=== PATIENT | female | born 1945 | race Caucasian/White ===

== ENCOUNTER → 2023-12-26 16:16 | Outpatient (REF) | payer OTHER, SELFPAY | LOC: HWRAD 16:16 | PROVIDERS: ATTENDING PHYSICIAN Nurse Practitioner Adult Health | DX: R06.09 Other forms of dyspnea (principal); R53.83 Other fatigue; R63.4 Abnormal weight loss; M54.2 Cervicalgia; M54.9 Dorsalgia, unspecified | CPT/HCPCS: 71046; 72050; 72072 ==

== ENCOUNTER → 2024-01-15 12:03 | Outpatient (REF) | payer OTHER, SELFPAY | LOC: HWRAD 12:03 | PROVIDERS: ATTENDING PHYSICIAN Internal Medicine | DX: Z91.81 History of falling (principal); S70.02XS Contusion of left hip, sequela | CPT/HCPCS: 73502 ==

== ENCOUNTER → 2024-01-22 09:14 | Outpatient (REF) | payer OTHER, SELFPAY | LOC: RSP 09:14 | PROVIDERS: ATTENDING PHYSICIAN Nurse Practitioner Adult Health | DX: J44.9 Chronic obstructive pulmonary disease, unspecified (principal); R06.09 Other forms of dyspnea | CPT/HCPCS: 94727; 94729; 88738; 94010 ==

== ENCOUNTER → 2024-01-31 11:33 | Outpatient (REF) | payer OTHER, SELFPAY | LOC: HWRAD 11:33 | PROVIDERS: ATTENDING PHYSICIAN Orthopaedic Surgery; FAMILY PHYSICIAN Internal Medicine | DX: R10.2 Pelvic and perineal pain (principal); M89.9 Disorder of bone, unspecified | CPT/HCPCS: 72192 ==

== ENCOUNTER → 2024-08-14 12:15 | Outpatient (REF) | payer OTHER, SELFPAY | LOC: HWWDC 12:15 | PROVIDERS: ATTENDING PHYSICIAN Nurse Practitioner Adult Health | DX: Z12.31 Encounter for screening mammogram for malignant neoplasm of breast (principal) | CPT/HCPCS: 77063; 77067 ==

== ENCOUNTER 2024-09-12 20:21 | Inpatient (IN) | payer OTHER, SELFPAY ==
[2024-09-12] VITALS (10 sets, daily range): BP systolic 123–185; BP diastolic 64–97; BMI 17.8
[2024-09-12 14:00] LABS: Glucose - Point of Care 155 mg/dl (70-99)
--- NOTE | 2024-09-12 14:03 | ED.GENMED ---
History of Present Illness
General
Chief Complaint: Blood Sugar Problem
Source: patient and ambulance crew
Exam Limitations: dementia
Time Seen by Provider: 09/12/24 14:01
Nursing documentation reviewed up to this point in time: agreed with
History of Present Illness
History of Present Illness:
79-year-old female presents emergency department after EMS called to the house by her due to unresponsiveness. EMS found her blood sugar to be 36. She woke up after receiving D50 from EMS.
Past History
Past History
ED Past Medical History: Hypercholesterolemia, Psychiatric (generalized anxiety disorder) and Other (osteoporosis, COVID-19 in May 2021, mild cognitive impairment 2020)
ED Past Surgical History: Other (cataract extraction 2003)
Social History
Tobacco: Non-smoker
Alcohol: None
Drug: None
Personal:
Living: with family
Family History
Family History: Other (reviewed and noncontributory)
Review of Systems
Review of Systems
Allergies reviewed?: Yes
Unable to obtain full review of systems at this time due to: dementia
All Other Systems: Not applicable
Phy Exam
Physical Exam
Physical Exam:
Physical Exam
General: no apparent distress, not acutely ill
Neck: supple. no meningeal signs. normal posterior pharynx
Heart: s1/s2 regular rate and rhythm, no murmur. equal radial
pulses.
HEENT: Pupils equal round reactive to light, EOMI
Lungs: no acute respiratory distress. clear bilaterally
Abdomen: normal bowel sounds. not tender. no CVAT
Neuro: alert but not oriented. no focal neurological deficits cranial nerves II through XII intact
Skin: no rash
Psychiatric: Confused, agitated
Extremities: no edema. no calf tenderness. negative homans. good distal pulses
Course
Orders/Labs/Results
Orders:
Orders
09/12/24
Electrocardiogram (*1) Stat
Comment: ALREADY DONE
09/12/24 14:01
CT Head W/o Iv Contrast Urgent
Comment:
Reason For Exam: altered mental status, unclear if fall
EKG- Treatment ONCE
09/12/24 14:02
Electrocardiogram (*1) Urgent
Reason for Study: Other
Other Reason for Exam: physician order
IV Insert/Care/Rem.- Treatment PRN
09/12/24 14:06
Complete Blood Count/With Diff Urgent
Comprehensive Metabolic Panel Urgent
09/12/24 19:51
Urinalysis Reflex To Culture Urgent
Accucheck [Bedside Glucose Monitoring] As Directed
Frequency: q4h
Straight Cath As Directed
Frequency: One time now
09/12/24 19:52
Dextrose 50%-Water [Dextrose 50% Syringe] 12.5 grams IV [id number] PRN
Glucagon [GlucaGen] 1 mg IM PRN PRN
09/13/24 06:00
Glycohemoglobin (HgbA1c) IN AM
Abnormal Lab Results
09/12/24 09/12/24
13:59 14:06
RBC 4.04 L 10^6/uL
(4.20-5.40)
Hct 36.0 L %
(37.0-47.0)
MPV 10.7 H fL
(7.4-10.4)
Absolute Lymphs (auto) 0.6 L 10^3/uL
(1.2-3.4)
Neutrophils % 83.9 H %
(42.2-75.2)
Lymphocytes % 7.8 L %
(20.5-51.1)
BUN 18 H mg/dl
(7-17)
Creatinine 0.5 L mg/dL
(0.6-1.0)
Glucose 180 H mg/dl
(70-99)
AST 46 H U/L
(14-36)
Total Protein 6.2 L g/dl
(6.3-8.2)
POC Glucose 155 H mg/dl
(70-99)
09/12/24 14:06
09/12/24 14:06
Vital Signs
Initial and Last Documented VS:
Initial Vital Signs
Temp Pulse Resp BP Pulse Ox
98.5 F 77 14 160/79 98
09/12/24 13:59 09/12/24 13:59 09/12/24 13:59 09/12/24 13:59 09/12/24 13:59
Last Documented Vital Signs
Temp Pulse Resp BP Pulse Ox
98.5 F 72 14 181/95 98
09/12/24 13:59 09/12/24 19:00 09/12/24 19:00 09/12/24 19:00 09/12/24 13:59
MDM/Problems Addressed
Differential Diagnosis Includes:
Accidental diabetic medication overdose, sepsis
MDM/Problems Addressed:
79-year-old female with hypoglycemia, persisting in the ED even after eating. Unclear etiology. Patient does not take hypoglycemic medication. Concerned that she could have taken her 's medication. Will admit for further evaluation.
Concerned that patient's cannot care for her at home.
Chronic conditions affecting care: Neurological disorder
Acute Exacerbation and/or Progression of Chronic Illness: Neurological disorder
*Radiology
Radiology exam reviewed: radiology read reviewed (CT head no acute findings)
*Pulse Oximetry
Patient hypoxic: no
*EKG
Interpreted by ED Provider?: Yes
EKG Intrepretation Date: 09/12/24
EKG Intrepretation Time: 15:08
Interpretation: normal
Comparison EKG: no changes
Heart Rate: 67
Rate: normal
Rhythm: sinus
[place]: normal axis
Interval: normal interval
QRS Pattern: normal QRS
Ischemia: no ischemia
*Product Design Manager Interpretation
Rate: normal
Interpretation: normal
Heart Rate: 66
Rhythm: sinus
*Critical Care Note
Total Time (30-74mins, 75-104mins- exclusive of procedures): Not Applicable
Patient Management
Social determinants of health affecting care: Living situation and Poor social support
Discussion with other providers: Hospitalist
Escalation/DeEscalation of care consider admission/obs:
admit indicated
ED Attending Note
-
Portions of this chart may have been created with voice recognition software.� Occasional wrong word or��sound alike� substitutions may have occurred due to the inherent limitations of voice recognition software.
Discharge Plan
Departure
Patient Disposition: Admit
Date of Disposition: 09/12/24
Time of Disposition: 17:52
Admit to: Telemetry
Presentation/result/management discussed w/ accepting MD/DO: Hospitalist
Patient with high blood pressure during this ER visit?: Yes
Condition: Fair
Discharge Problem:
Hypoglycemia
Prescriptions:
No Action
atorvastatin 10 MG tablet
10 mg PO QPM
coenzyme Q10 [Co Q-10] 200 MG capsule
200 mg PO QPM
calcium carbonate-vitamin D3 [Calcium 600 + D(3)] 1 EACH tablet
1 ea PO DAILY
alprazolam 0.25 mg Tablet
0.25 mg PO BID
Patient Comments:
09/12/24: Family states this is taken routinely, but last PDMP fill was on 10/11/23 for 60 tabs over 30 days.
ascorbic acid (vitamin C) [Vitamin C] 250 mg Tablet
250 mg PO DAILY
ibuprofen [Advil] 200 mg Tablet
200 mg PO Q6HPRN PRN (Reason: mild pain)
sertraline 50 mg Tablet
50 mg PO DAILY
memantine 10 mg Tablet
10 mg PO BID
hydrochlorothiazide 12.5 mg Tablet
12.5 mg PO DAILY
rivastigmine 4.6 mg/24 hour Patch 24 Hour
1 patch TRANSDERMAL DAILY
Referrals:
Javier Frederick CRNP [Family Provider] -
Interventions
Interventions:
*Risk Screen - Suicide Last Done: 09/12/24 13:59
*General Assessment Last Done: 09/12/24 13:59
*Neglect/Abuse Screening Last Done: 09/12/24 17:30
*ED- Fall Risk Assessment Last Done: 09/12/24 14:20
*ED COVID-19 Vaccine History Last Done: 09/12/24 14:20
ED- Neurological Assessment Last Done: 09/12/24 14:23
Discharge Date and Time
Print Language: FINNISH
[2024-09-12 14:16] LABS: % Basophils 0.1 % (0-2); % Immature Granulocytes 0.3 % (0-0.5); % Lymphocytes 7.8 % (20.5-51.1); % Monocytes 7.9 % (1.7-9.3); % Neutrophils 83.9 % (42.2-75.2); Absolute Lymphocytes 0.6 10^3/uL (1.2-3.4); Absolute Monocytes 0.6 10^3/uL (0.1-0.6); Absolute Neutrophils 6.1 10^3/uL (1.4-6.5); Hemoglobin 12.2 g/dL (12.0-16.0); Mean Corp Hgb Conc. 33.9 g/dL (33.0-37.0); Mean Corpuscular Hgb 30.2 pg (27.0-31.0); Mean Corpuscular Volume 89.1 fL (81.0-99.0); Mean Platelet Volume 10.7 fL (7.4-10.4); Nucleated Red Blood Cells % 0 %; Platelet Count 180 10^3/uL (130-400); Red Blood Cell Count 4.04 10^6/uL (4.20-5.40); Red Cell Dist. Width 13.5 % (11.5-14.5); White Blood Cell Count 7.2 10^3/uL (4.8-10.8)
[2024-09-12 14:38] LABS: ALT (SGPT) 35 U/L (0-35); AST (SGOT) 46 U/L (14-36); Albumin 3.6 g/dl (3.5-5.0); Alkaline Phosphatase 72 U/L (38-126); Blood Urea Nitrogen 18 mg/dl (7-17); Calcium 8.9 mg/dl (8.4-10.2); Carbon Dioxide 28 mmol/L (22-30); Chloride 106 mmol/L (98-107); Estimated Creatinine Clearance 57 ml/min; Glucose 180 mg/dl (70-99); Potassium 3.5 mmol/L (3.5-5.1); Sodium 141 mmol/L (135-145); Total Bilirubin 0.4 mg/dl (0.2-1.3); Total Protein 6.2 g/dl (6.3-8.2); eGFR > 60.00
[2024-09-12 15:05] LABS: Glucose - Point of Care 77 mg/dl (70-99)
[2024-09-12 16:55] LABS: Glucose - Point of Care 78 mg/dl (70-99)
--- NOTE | 2024-09-12 18:06 | EDRN ---
Pt's daughter, Kenyatta, would like to talk to case management about discharge planning and possible home care/retirement. Kenyatta's phone #[phone].
--- NOTE | 2024-09-12 19:37 | HPS.HSE ---
Addendum entered and electronically signed by Jaquelin Moreno DO 09/13/24 01:26:
The patient is seen and examined. I discussed the patient at length with Bere, nurse practitioner, and agree with her history and physical and assessment and plan of care as per below. The patient is an 79-year-old woman with past medical history
significant for moderate advanced dementia, orthostatic hypotension, chronic ambulatory dysfunction, generalized anxiety disorder, hyperlipidemia, who presents to the emergency department after falling backwards yesterday. 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 There is a chance he could the patient could have taken his metformin however he does not
remember giving her this. She does not have a history of diabetes. She presents with blood sugars in the 30s. She does have decreased oral intake. No nausea no vomiting no diarrhea no abdominal complaints.
Vital signs reviewed and the patient is afebrile and blood pressure 181/95 otherwise hemodynamically stable
Physical exam the patient is cachectic and chronically ill-appearing
cardiovascular regular rate rhythm no murmurs or gallops
lungs are clear to auscultation bilaterally without wheezes rales or rhonchi abdomen soft nontender nondistended
normoactive bowel sounds
The patient is an 79-year-old woman with severe dementia who presents with intractable hypoglycemia of unknown etiology at this time.
#We have initiated the patient on a D5 normal saline drip due to recurrent hypoglycemia while the patient is in the emergency department
See assessment and plan of care as per below
Original Note:
Family Physician
-
Family Physician: Javier Frederick
Chief Complaint
-
Hypoglycemia
History of Present Illness
79-year-old female by EMS due to being found unresponsive at home by her . She was found to have a blood sugar of 36 by EMS and was given D50. Her states she has a history of dementia moderate to advanced he has to help her perform
all ADLs. Over the past month she started rambling. Yesterday she was walking down the steps got to the landing when he saw her legs start to wobble she fell backwards onto the wall landing on her butt she did not hit her head or have any loss of
consciousness. He reports he did not notice any harding to her back or legs she was able to stand up and walk with his assistance. He denies any history of diabetes however he himself takes metformin for diabetes he reports it could be possible she
might have gotten a hold of his metformin since they are out however she is never tried to take medications before on her own. He reports she has been receiving physical therapy and Occupational Therapy at home over the last 3 weeks when he asked
the primary care physician for grab bar devices and home modifications as he is noticing more issues with balance. He denies any recent complaints of headache, fever, chills, vomiting, cough, shortness of breath, abdominal pain, nausea, diarrhea,
rash. He reports medical history of HLD, moderate to advanced dementia�initially diagnosed 2020 with mild cognitive impairment, ambulatory dysfunction, generalized anxiety disorder, osteoporosis, COVID-29 May 2021, orthostatic hypotension Dx
2021
Medical History
Past Medical History
Past Medical History: Reports Other
Additional Past Medical History:
HLD
moderate to advanced dementia�initially diagnosed 2020 with mild cognitive impairment
ambulatory dysfunction
generalized anxiety disorder
osteoporosis
COVID-29 May 2021
Orthostatic hypotension Dx 2021
Past Surgical History: Reports None
Social History
Tobacco: Non-smoker
Alcohol: None
Drug: None
Personal:
Living: With Family ( Yared)
Employment: Retired
Family History
Family History: Other (Mother age 97 unsure per Yared at bedside)
Allergies / Home Medications
Allergies reflects when Allergies were last updated in [facility].
Home Medications with original date entered in [facility]
Allergy/Medication List:
Allergies
Allergy/AdvReac Type Severity Reaction Status Date / Time
No Known Allergies Allergy Verified 12/14/16 18:13
Home Medications
atorvastatin 10 mg tablet 10 mg PO QPM High cholesterol 12/14/16
calcium 600 mg (as carbonate)-vitamin D3 10 mcg (400 unit) tablet (Calcium 600 + D(3)) 1 ea PO DAILY Supplement 12/14/16
coenzyme Q10 200 mg capsule (Co Q-10) 200 mg PO QPM Supplement 12/14/16
alprazolam 0.25 mg tablet 0.25 mg PO BID 09/12/24
ascorbic acid (vitamin C) 250 mg tablet (Vitamin C) 250 mg PO DAILY 09/12/24
hydrochlorothiazide 12.5 mg tablet 12.5 mg PO DAILY 09/12/24
ibuprofen 200 mg tablet (Advil) 200 mg PO Q6HPRN PRN mild pain 09/12/24
memantine 10 mg tablet 10 mg PO BID 09/12/24
rivastigmine 4.6 mg/24 hour transdermal patch 1 patch transdermal DAILY 09/12/24
sertraline 50 mg tablet 50 mg PO DAILY 09/12/24
Review of Systems
-
History Source: Family ( Yared at bedside)
A 12 point ROS was completed and negative except as noted: Yes
Constitutional: Denies Fever, Fatigue or Chills
EENT: Denies Runny Nose
Respiratory: Denies Cough or Trouble Breathing
Cardiac: Denies Chest Pain, Diaphoresis or Syncope
Abdomen/GI: Denies Abdominal Pain, Nausea, Vomiting or Diarrhea
: Denies Flank Pain
Musculoskeletal: Denies Joint Pain or Edema
Skin: Denies Itching or Rash
Neurological: Denies Dizzy or Headache
Psych: Reports Calm
Physical Exam
Vital Signs
Vital Signs
Temp Pulse Resp BP Pulse Ox
98.5 F 72 14 181/95 98
09/12/24 13:59 09/12/24 19:00 09/12/24 19:00 09/12/24 19:00 09/12/24 13:59
Physical Exam
General: Comfortable, Conversant and Other (Patient oriented to first and last name is fidgeting trying to pull off pulse oximetry tape rambles with word salad history of moderate to advanced dementia)
HEENT: NormoCephalic, Anicteric, Moist mucous membranes, PERRLA, [place] Conjunctivae and No Ptosis
Respiratory: Clear; No Wheezes, Rales or Rhonchi
Cardiac: S1/S2 and Regular Rhythm; No Murmur, Rub, Gallop or Peripheral Edema
Breast: Deferred by me
GI: Soft, Non Tender, Non Distended and Normal Bowel Sounds
Rectal: Deferred by Provider
Genito-urinary: Deferred by me
Musculoskeletal: No Clubbing, No Cyanosis and No Edema
Skin: Warm and Dry; No Rash or Jaundice
Neuro: Awake, Alert (Patient oriented to first and last name is fidgeting trying to pull off pulse oximetry tape rambles with word salad history of moderate to advanced dementia) and No Sensory Deficits; No Slurred Speech, Facial Droop, Tremors or
Sedated
Psych: Calm
Laboratory Results
-
09/12/24 14:06
09/12/24 14:06
Laboratory Results
Total Bilirubin 0.4 mg/dl (0.2-1.3) 09/12/24 14:06
AST 46 U/L (14-36) H 09/12/24 14:06
ALT 35 U/L (0-35) 09/12/24 14:06
Alkaline Phosphatase 72 U/L (38-126) 09/12/24 14:06
Data Reviewed
-
CT Scan: Report Reviewed by me
Lab Data: Labs Reviewed by me
Impression/Plan
-
Impression/plan:
Admit to MedSurg
#Acute hypoglycemia unclear etiology
Blood sugar per EMS 36 was given D50 current Accu-Chek 78 @ 1654
-Given history of dementia possibility had access to 's metformin
-Accu-Cheks every 4 hours
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
- Per she eats multiple times a day large meals and sleeps through the night
-Check TSH with free T4 reflex
Update no 2328 blood sugar dropping to 46 was given juice then up to 90-will start D5 NSS 100 cc an hour x 1 L
- Accu-Cheks Q 2 x 4 then every [address] head: No acute intracranial abnormality. Stable mild subcortical, deep, and periventricular white matter attenuation compatible
with chronic small vessel ischemic disease
# Moderate to advanced dementia�initially diagnosed 2020 with mild cognitive impairment
-Continue memantine 10 mg twice daily, rivastigmine 1 patch transdermal daily
#Hx Orthostatic hypotension Dx 2021
-Check orthostatic vitals
-Hold HCTZ 12.5 mg daily
#Chronic ambulatory dysfunction
- PT/OT consult
- [facility] has been following at home for the past 3 weeks
#Generalized anxiety disorder
- Continue Zoloft 50 mg daily
# HLD
- Continue atorvastatin 10 mg every afternoon
Other past medical history:
osteoporosis
COVID-29 May 2021
DNR her Yared
[2024-09-12 21:19] LABS: Urine Albumin 1+ (Neg - Trace); Urine Bilirubin Negative (Negative); Urine Character Clear (Clear); Urine Color Yellow; Urine Glucose Negative (Negative); Urine Ketone Negative (Negative); Urine Leukocyte Negative (Negative); Urine Nitrite Negative (Negative); Urine Occult Blood 3+ (Negative); Urine Urobilinogen Negative (Neg - 1+)
[2024-09-12 21:25] LABS: Glucose - Point of Care 46 mg/dl (70-99)
[2024-09-12 21:29] LABS: TSH Reflex To Free T4 0.55 uIU/ml (0.47-4.68)
[2024-09-12] MEDS: DEXTROSE 50% SYRINGE 12.5 GRAMS IV (21:29)
[2024-09-12 21:34] LABS: Urine Red Blood Cell 16-20 /HPF (0-2); Urine Squamous Cell 0-2 /LPF (Few); Urine White Cell 0-2 /HPF (0-5)
[2024-09-12 21:46] LABS: Glucose - Point of Care 130 mg/dl (70-99)
[2024-09-12 23:02] LABS: Glucose - Point of Care 90 mg/dl (70-99)
[2024-09-12] MEDS: D5/0.9% SODIUM CHLORIDE 1000 IV (23:36)
[2024-09-13 00:11] VITALS: BP 146/70; BMI 16.3
--- NOTE | 2024-09-13 00:22 | PTCARENOTE ---
Pt arrived to floor from ED via stretcher and was transferred over to the bed. Pt aox1 (Self). Drowsy, but easily aroused by voice. Pt placed on a bed alarm in a room close to nurses station. Will review chart and continue to monitor.
[2024-09-13 01:05] LABS: Glucose - Point of Care 95 mg/dl (70-99)
[2024-09-13 03:23] LABS: Glucose - Point of Care 99 mg/dl (70-99)
[2024-09-13 06:00] VITALS: BMI 16.5
[2024-09-13 06:25] LABS: Glucose - Point of Care 101 mg/dl (70-99)
[2024-09-13 08:00] VITALS: BP 155/73
[2024-09-13] MEDS: OSCAL 500 + D 500 MG PO (08:27)
[2024-09-13] MEDS: NAMENDA 10 MG PO ×2 (08:27→21:08)
[2024-09-13] MEDS: ZOLOFT 50 MG PO (08:27)
[2024-09-13] MEDS: EXELON PATCH 4.6 MG TRANSDERM (08:28)
[2024-09-13 08:29] LABS: % Basophils 0.3 % (0-2); % Eosinophils 1.5 % (0-6); % Immature Granulocytes 0.1 % (0-0.5); % Lymphocytes 28.3 % (20.5-51.1); % Monocytes 9.4 % (1.7-9.3); % Neutrophils 60.4 % (42.2-75.2); Absolute Eosinophils 0.1 10^3/uL (0-0.7); Absolute Lymphocytes 2.1 10^3/uL (1.2-3.4); Absolute Monocytes 0.7 10^3/uL (0.1-0.6); Absolute Neutrophils 4.4 10^3/uL (1.4-6.5); Hematocrit 36.5 % (37.0-47.0); Mean Corp Hgb Conc. 32.9 g/dL (33.0-37.0); Mean Corpuscular Hgb 29.9 pg (27.0-31.0); Nucleated Red Blood Cells % 0 %; Platelet Count 167 10^3/uL (130-400); Red Blood Cell Count 4.01 10^6/uL (4.20-5.40); Red Cell Dist. Width 13.5 % (11.5-14.5); White Blood Cell Count 7.3 10^3/uL (4.8-10.8)
[2024-09-13] MEDS: NSS 1000 IV (08:37)
[2024-09-13 08:53] LABS: ALT (SGPT) 36 U/L (0-35); AST (SGOT) 61 U/L (14-36); Albumin 3.5 g/dl (3.5-5.0); Alkaline Phosphatase 76 U/L (38-126); Blood Urea Nitrogen 17 mg/dl (7-17); Calcium 9.1 mg/dl (8.4-10.2); Carbon Dioxide 27 mmol/L (22-30); Chloride 111 mmol/L (98-107); Estimated Creatinine Clearance 55 ml/min; Glucose 109 mg/dl (70-99); Potassium 3.8 mmol/L (3.5-5.1); Sodium 143 mmol/L (135-145); Total Bilirubin 0.6 mg/dl (0.2-1.3); Total Protein 5.9 g/dl (6.3-8.2); eGFR > 60.00
[2024-09-13 09:29] LABS: Glycohemoglobin (HgbA1c) 5.3 % (4.0-5.6)
--- NOTE | 2024-09-13 10:32 | W.PN.HOSP.TC ---
Addendum entered and electronically signed by Damion Linton DO 09/13/24 12:00:
PT notes patient is heavy assist of 2 just to pivot to commode or chair, increased LE tone, ataxia.
Consult neurology.
Original Note:
Today's Communication/Plan
-
Stop IV fluids
PT/OT
Monitor glucoses
Cortisol level
Assessment / Plan
Assessment / Plan
Gen-awake, alert, confused, NAD
HEENT-NC, AT, anicteric, clear oral mm
Neck-supple
CV-reg, no M, +S1/S2
Lungs-clear B/L
Abd-soft, NT, ND
Ext-no edema
Musculoskeletal-no cyanosis, clubbing
Skin-warm and dry
Neuro-grossly non-focal
Psych-calm, cooperative
Hypoglycemia -unclear etiology. believes she may have accidentally taken his metformin. states that her appetite at home is great, she does not skip any meals.
Check a.m. cortisol level. Hypoglycemia resolved. Discontinue further IV fluids.
Diet resume.
Ambulatory dysfunction -nursing notes that she is weak. states that at home she ambulates without any assistive devices. Await PT/OT input.
Dementia -unknown type. Stable on meds.
Generalized anxiety disorder
Osteoporosis
Hyperlipidemia -atorvastatin.
DNR
PT/OT
Updated at the bedside.
Anticipated Discharge: Within 24 hours
Subjective/Interval History
-
Date of Service: September 13, 2024
Patient seen and examined. Confused, no complaints. at the bedside.
Objective Data
-
Labs:
Laboratory Results
09/13/24
07:57
WBC 7.3
Hgb 12.0
Hct 36.5 L
Plt Count 167
Sodium 143
Potassium 3.8
Chloride 111 H
Carbon Dioxide 27
BUN 17
Creatinine 0.6
Glucose 109 H
Calcium 9.1
Total Bilirubin 0.6
AST 61 H
ALT 36 H
Alkaline Phosphatase 76
Vital Signs:
Vital Signs
Temp Pulse Resp BP Pulse Ox
97.3 F 77 16 155/73 97
09/13/24 08:00 09/13/24 08:00 09/13/24 08:00 09/13/24 08:00 09/13/24 08:00
Review of Systems
-
Unable to obtain full review of systems at this time due to: Dementia
--- NOTE | 2024-09-13 10:33 | CM ---
Addendum entered by Neha Medel 09/13/24 16:07:
Spoke with daughter Kenyatta who requests a SW be added to a home care referral if plan is to dc home with services to assist spouse with resources. Daughter lives in [place].
Original Note:
CM called daughter Kenyatta as ED noted daughter requested-met with pt and spouse at bedside and per spouse OK to call and speak with kenyatta.
Called Kenyatta at [phone] and she asked to call CM back later since she is at work and CM provided callback #.
--- NOTE | 2024-09-13 10:46 | CM ---
Met with pt and spouse at bedside.
Pt resides with spouse in a split level home with 0 [address]. 6 steps to each level, pt recently moved from third (uppermost) level to 2nd (middle) level where there is a bedroom/full bathroom present.
Per spouse, pt is ind with ambulation using no AD and spouse assists with bathing/dressing.
Pt is currently open with [facility] for RN/PT/OT. Has no SNF history.
PCP is Javier Frederick and pharmacy is [facility].
PT eval pending. Callback from daughter pending. CM following closely.
[2024-09-13 11:11] LABS: Glucose - Point of Care 91 mg/dl (70-99)
[2024-09-13 11:54] VITALS: BP 152/71; PULSE 66; O2SAT 98
[2024-09-13 11:56] VITALS: BP 152/71; PULSE 68; O2SAT 98
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
[2024-09-13 12:22] LABS: Cortisol, Random 15.5 ug/dl
[2024-09-13 14:48] LABS: Glucose - Point of Care 96 mg/dl (70-99)
[2024-09-13 16:00] VITALS: BP 133/70
[2024-09-13] MEDS: LOVENOX 40 MG SC (17:31)
[2024-09-13] MEDS: LIPITOR 10 MG PO (17:31)
[2024-09-13] MEDS: RISPERDAL M-TAB (ORALLY DISINTEGRATING) 0.5 MG PO (21:08)
[2024-09-13 22:04] LABS: Glucose - Point of Care 100 mg/dl (70-99)
--- NOTE | 2024-09-13 22:06 | PTCARENOTE ---
pt pleasant but confused restless and impulsive. unsteady but strong and made many attempts to ge oob. BA in place, pt in a room near nurses station, madison chair avail if needed. Active toileting because pt is continent. Very anxious and combative
with and quick movements or loud voices, using quiet calm assurance and redirection. Pt bg stable, in the 90's -100's. Ate whole dinner with direction. 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 Advised its ok wait on next BG unitl am, will check again
before change of shift.
[2024-09-14 06:16] LABS: % Basophils 0.3 % (0-2); % Eosinophils 3.1 % (0-6); % Immature Granulocytes 0.3 % (0-0.5); % Lymphocytes 30.7 % (20.5-51.1); % Monocytes 9.4 % (1.7-9.3); % Neutrophils 56.2 % (42.2-75.2); Absolute Eosinophils 0.2 10^3/uL (0-0.7); Absolute Lymphocytes 2.3 10^3/uL (1.2-3.4); Absolute Monocytes 0.7 10^3/uL (0.1-0.6); Absolute Neutrophils 4.2 10^3/uL (1.4-6.5); Hematocrit 35.5 % (37.0-47.0); Hemoglobin 12.1 g/dL (12.0-16.0); Mean Corp Hgb Conc. 34.1 g/dL (33.0-37.0); Mean Corpuscular Hgb 30.5 pg (27.0-31.0); Mean Corpuscular Volume 89.4 fL (81.0-99.0); Mean Platelet Volume 10.8 fL (7.4-10.4); Nucleated Red Blood Cells % 0 %; Platelet Count 160 10^3/uL (130-400); Red Blood Cell Count 3.97 10^6/uL (4.20-5.40); Red Cell Dist. Width 13.2 % (11.5-14.5); White Blood Cell Count 7.5 10^3/uL (4.8-10.8)
[2024-09-14 06:46] LABS: ALT (SGPT) 44 U/L (0-35); AST (SGOT) 58 U/L (14-36); Albumin 3.8 g/dl (3.5-5.0); Alkaline Phosphatase 86 U/L (38-126); Blood Urea Nitrogen 20 mg/dl (7-17); Calcium 9.6 mg/dl (8.4-10.2); Carbon Dioxide 29 mmol/L (22-30); Chloride 106 mmol/L (98-107); Estimated Creatinine Clearance 47 ml/min; Glucose 96 mg/dl (70-99); Potassium 3.6 mmol/L (3.5-5.1); Sodium 143 mmol/L (135-145); Total Bilirubin 0.8 mg/dl (0.2-1.3); Total Protein 6.3 g/dl (6.3-8.2); eGFR > 60.00
[2024-09-14 07:00] VITALS: BP 168/82
--- NOTE | 2024-09-14 07:57 | W.PN.NEURO.1 ---
Today's Communication / Plan
-
.
Subjective/Objective
Subjective Data
Date of Service: September 14, 2024
Neurology Consultation Note.
Ms. Adan reports no complaints. She received 0.5 mg of risperidone at 21:08 for agitation yesterday.
Brain MRI is pending
PMH: Dementia, HTN, DLP,
PSH: Bilateral cataract extraction
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
All:NKDA
ROS: Negative for weight loss, fever
Neurological: Positive for progressive cognitive decline
Psychiatric/Behavioral: Negative for behavioral changes, hallucinations
General: Well developed. In no acute distress.
Cardio: Regular rate and rhythm without murmur. Extremities are without cyanosis or edema.
Neuro:
Mental Status: Alert, oriented to name, person date of . Did not know month, year. Follows simple requests. Poor attention and comprehension.
Cranial Nerves: Pupils are equally round, surgical. EOMs full. Limited smooth pursuit. Blinks to threat bilaterally. No ptosis. No nystagmus. V1-V3 intact to light touch and pinprick bilaterally, symmetric. Face symmetric. Normal hearing AU.
The palate elevated well. SCMs and traps 5/5. Tongue midline. No dysarthria. Moderate hypophonia
Motor: All limbs are antigravity symmetrically
Reflexes: Bilateral grasp
Sensory: Limited exam due to poor attention
Coordination: No tremors myoclonic movements.
Gait: deferred
Assessment and Plan:
I. Symptomatic seizure
II. Dementia, LBD?
III. Hypoglycemia
-Continue Telemetry monitoring
-Fall and delirium precautions
-Brain MRI without pilar
-No indications for AED
-DVT prophylaxis.
I personally reviewed all radiology and labs along with past medical records pertinent to current medical problems. Total time spent in patient care is 35 minutes.
Thank you for allowing us to participate in the care of this patient. We will continue to follow. Please do not hesitate to contact us with any questions or concerns.
Objective Data
Vital Signs
Temp Pulse Resp BP Pulse Ox
36.9 C 69 16 133/70 98
09/13/24 16:00 09/13/24 16:00 09/13/24 16:00 09/13/24 16:00 09/13/24 16:00
Lab Results
09/14/24 05:33
09/14/24 05:33
Sodium 143 mmol/L (135-145) 09/14/24 05:33
Potassium 3.6 mmol/L (3.5-5.1) 09/14/24 05:33
BUN 20 mg/dl (7-17) H 09/14/24 05:33
Glucose 96 mg/dl (70-99) 09/14/24 05:33
Calcium 9.6 mg/dl (8.4-10.2) 09/14/24 05:33
Patient Allergies
No Known Allergies Allergy (Verified 12/14/16 18:13)
Vital Signs and Labs
-
Vital Signs and Labs:
Vital Signs
Temp Pulse Resp BP Pulse Ox
36.9 C 66 17 168/82 100
09/14/24 07:00 09/14/24 07:00 09/14/24 07:00 09/14/24 07:00 09/14/24 07:00
Lab Results
09/14/24 05:33
09/14/24 05:33
Sodium 143 mmol/L (135-145) 09/14/24 05:33
Potassium 3.6 mmol/L (3.5-5.1) 09/14/24 05:33
BUN 20 mg/dl (7-17) H 09/14/24 05:33
Glucose 96 mg/dl (70-99) 09/14/24 05:33
Calcium 9.6 mg/dl (8.4-10.2) 09/14/24 05:33
Medications
-
Medications:
Generic Name Dose Route Start Last Admin
Trade Name Freq PRN Reason Stop Dose Admin
Acetaminophen 650 mg 09/13/24 00:05
Acetaminophen 325 Mg Tablet PO 10/11/24 00:04
Q4HPRN PRN
mild pain/WINTER/temp> 100.4F
Alprazolam 0.25 mg 09/14/24 11:04 09/14/24 11:10
Alprazolam 0.25 Mg Tablet PO 10/12/24 11:03 0.25 mg
Q6HPRN PRN Administration
PRIOR TO MRI/ANXIETY
Atorvastatin Calcium 10 mg 09/13/24 18:00 09/13/24 17:31
Atorvastatin (Lipitor) 10 Mg Tablet PO 10/11/24 17:59 10 mg
QPM RADHA Administration
Calcium/Vitamin D 500 mg 09/13/24 08:00 09/14/24 08:38
Calcium Carbonate 500 Mg/Vitamin D 5 Mcg (200 Units) Tablet PO 10/11/24 07:59 500 mg
DAILY RADHA Administration
Dextrose 12.5 grams 09/12/24 19:52 09/12/24 21:29
Dextrose 50% (0.5 Grams/Ml) 50 Ml Syringe IV 10/10/24 19:51 12.5 grams
[id number] PRN Administration
hypoglycemia
Protocol
Dextrose 12.5 grams 09/13/24 00:05
Dextrose 50% (0.5 Grams/Ml) 50 Ml Syringe IV 10/11/24 00:04
[id number] PRN
hypoglycemia
Protocol
Enoxaparin Sodium 40 mg 09/13/24 18:00 09/13/24 17:31
Enoxaparin Sodium 40 Mg/0.4 Ml Syringe SC 10/11/24 17:59 40 mg
QPM RADHA Administration
Glucagon 1 mg 09/12/24 19:52
Glucagon 1 Mg Vial IM 10/10/24 19:51
PRN PRN
hypoglycemia
Protocol
Glucagon 1 mg 09/13/24 00:05
Glucagon 1 Mg Vial IM 10/11/24 00:04
PRN PRN
hypoglycemia
Protocol
Memantine 10 mg 09/13/24 08:00 09/14/24 08:43
Memantine 10 Mg Tablet PO 10/11/24 07:59 10 mg
BID RADHA Administration
Rivastigmine 4.6 mg 09/13/24 08:00 09/14/24 08:38
Rivastigmine (Exelon) 4.6 Mg Patch TRANSDERM 10/11/24 07:59 4.6 mg
DAILY RADHA Administration
Sertraline HCl 50 mg 09/13/24 08:00 09/14/24 08:38
Sertraline 50 Mg Tablet PO 10/11/24 07:59 50 mg
DAILY RADHA Administration
Sodium Chloride 0 flush 09/12/24 23:00
Sodium Chloride 0.9% (Flush) Syringe IV 10/10/24 22:59
PER PROTOCOL RADHA
Home Medications
-
Home Medications
atorvastatin 10 mg tablet 10 mg PO QPM High cholesterol 12/14/16
calcium 600 mg (as carbonate)-vitamin D3 10 mcg (400 unit) tablet (Calcium 600 + D(3)) 1 ea PO DAILY Supplement 12/14/16
coenzyme Q10 200 mg capsule (Co Q-10) 200 mg PO QPM Supplement 12/14/16
alprazolam 0.25 mg tablet 0.25 mg PO BID Anxiety 09/12/24
ascorbic acid (vitamin C) 250 mg tablet (Vitamin C) 250 mg PO DAILY Supplement 09/12/24
hydrochlorothiazide 12.5 mg tablet 12.5 mg PO DAILY Blood Pressure 09/12/24
ibuprofen 200 mg tablet (Advil) 200 mg PO Q6HPRN PRN mild pain 09/12/24
memantine 10 mg tablet 10 mg PO BID Mental Health/Anxiety 09/12/24
rivastigmine 4.6 mg/24 hour transdermal patch 1 patch transdermal DAILY Mental Health/Anxiety 09/12/24
sertraline 50 mg tablet 50 mg PO DAILY Depression 09/12/24
[2024-09-14] MEDS: ZOLOFT 50 MG PO (08:38)
[2024-09-14] MEDS: EXELON PATCH 4.6 MG TRANSDERM (08:38)
[2024-09-14] MEDS: OSCAL 500 + D 500 MG PO (08:38)
[2024-09-14] MEDS: NAMENDA 10 MG PO ×2 (08:43→23:06)
[2024-09-14] MEDS: ALPRAZOLAM ODT 0.25 MG PO (09:55)
--- NOTE | 2024-09-14 10:28 | W.PN.HOSP.TC ---
Today's Communication/Plan
-
Xanax as needed
Brain MRI
Assessment / Plan
Assessment / Plan
Gen-awake, alert, confused, NAD
HEENT-NC, AT, anicteric, clear oral mm
Neck-supple
CV-reg, no M, +S1/S2
Lungs-clear B/L
Abd-soft, NT, ND
Ext-no edema
Musculoskeletal-no cyanosis, clubbing
Skin-warm and dry
Neuro-grossly non-focal
Psych-calm, cooperative
Hypoglycemia -unclear etiology. believes she may have accidentally taken his metformin. states that her appetite at home is great, she does not skip any meals.
A.m. cortisol 15, doubt adrenal insufficiency.
Hypoglycemia resolved.
Ambulatory dysfunction -nursing notes that she is weak. states that at home she ambulates without any assistive devices.
Neurology consulted for lower extremity weakness. They raised the concern for potential or possible seizure. Brain MRI ordered. Nursing requesting medication for sedation given her inability to sit still or lie still for MRI. Xanax as needed
ordered.
Dementia -unknown type. Stable on meds.
Generalized anxiety disorder
Osteoporosis
Hyperlipidemia -atorvastatin.
DNR
PT/OT
Anticipated Discharge: Within 24 hours
Subjective/Interval History
-
Date of Service: September 14, 2024
Patient seen and examined. Confused, no complaints.
Objective Data
-
Labs:
Laboratory Results
09/14/24
05:33
WBC 7.5
Hgb 12.1
Hct 35.5 L
Plt Count 160
Sodium 143
Potassium 3.6
Chloride 106
Carbon Dioxide 29
BUN 20 H
Creatinine 0.7
Glucose 96
Calcium 9.6
Total Bilirubin 0.8
AST 58 H
ALT 44 H
Alkaline Phosphatase 86
Vital Signs:
Vital Signs
Temp Pulse Resp BP Pulse Ox
98.4 F 66 17 168/82 100
09/14/24 07:00 09/14/24 07:00 09/14/24 07:00 09/14/24 07:00 09/14/24 07:00
I&O
09/13/24 09/14/24 09/15/24
06:59 06:59 06:59
Intake Total 1800 / 1800
Balance 1800 / 1800
Review of Systems
-
Unable to obtain full review of systems at this time due to: Dementia
History Source: Patient
All other systems: Reviewed and negative
[2024-09-14] MEDS: XANAX 0.25 MG PO (11:10)
--- NOTE | 2024-09-14 12:00 | PTCARENOTE ---
Pt restless prior to MRI. made aware of restlessness, new order for Xanax. Xanax administered with + effects. Patient taken to MRI, MRI staff called shortly after stating that patient was unable to remain still for imaging. MRI not done, made
aware, new order for MRI on 09/15. at bedside during shift. Bed alarm in place and call valdez within reach.
--- NOTE | 2024-09-14 14:01 | CM ---
Addendum entered by Ame Guadarrama 09/14/24 16:09:
Daughter and spouse state they would like refs to [facility], [facility], and [facility].
Original Note:
CM following re: d/c planning.
CM discussed with pt and spouse, amenable to SNF.
Therapy recs for SNF.
Spouse will provide a few choices shortly.
Call placed to daughter as well, but she states she will call CM back.
CM continuing to work on disposition to SNF.
[2024-09-14 16:16] VITALS: BP 103/57; BP 124/68; BP 137/59; PULSE 73; PULSE 80; PULSE 85
[2024-09-14 16:17] VITALS: BP 124/68
[2024-09-14] MEDS: LOVENOX 40 MG SC (17:31)
[2024-09-14] MEDS: LIPITOR 10 MG PO (17:32)
[2024-09-14 20:23] LABS: Glucose - Point of Care 92 mg/dl (70-99)
[2024-09-14 22:37] LABS: Glucose - Point of Care 104 mg/dl (70-99)
[2024-09-14 23:41] VITALS: BP 154/81
--- NOTE | 2024-09-15 03:48 | W.PN.UPDATE ---
Update Note
Progress Note Update
Patient found sitting on the floor by her bed. No injuries noted. No evidence of head strike. Returned to bed. Will consider madison chair . Bed alarm on.
[2024-09-15 06:00] VITALS: BMI 16.8
[2024-09-15 07:05] VITALS: BP 124/81
[2024-09-15 08:02] LABS: % Basophils 0.3 % (0-2); % Eosinophils 1.3 % (0-6); % Immature Granulocytes 0.4 % (0-0.5); % Lymphocytes 23.4 % (20.5-51.1); % Monocytes 8.1 % (1.7-9.3); % Neutrophils 66.5 % (42.2-75.2); Absolute Eosinophils 0.1 10^3/uL (0-0.7); Absolute Lymphocytes 1.7 10^3/uL (1.2-3.4); Absolute Monocytes 0.6 10^3/uL (0.1-0.6); Absolute Neutrophils 4.8 10^3/uL (1.4-6.5); Hematocrit 35.1 % (37.0-47.0); Hemoglobin 12.2 g/dL (12.0-16.0); Mean Corp Hgb Conc. 34.8 g/dL (33.0-37.0); Mean Corpuscular Volume 86.5 fL (81.0-99.0); Mean Platelet Volume 11.1 fL (7.4-10.4); Nucleated Red Blood Cells % 0 %; Platelet Count 161 10^3/uL (130-400); Red Blood Cell Count 4.06 10^6/uL (4.20-5.40); White Blood Cell Count 7.2 10^3/uL (4.8-10.8)
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
[2024-09-15] MEDS: EXELON PATCH 4.6 MG TRANSDERM (08:31)
[2024-09-15] MEDS: ZOLOFT 50 MG PO (08:31)
[2024-09-15] MEDS: NAMENDA 10 MG PO ×2 (08:32→21:18)
[2024-09-15] MEDS: XANAX 0.25 MG PO (08:32)
[2024-09-15] MEDS: OSCAL 500 + D 500 MG PO (08:32)
[2024-09-15 09:09] LABS: ALT (SGPT) 47 U/L (0-35); AST (SGOT) 49 U/L (14-36); Albumin 3.6 g/dl (3.5-5.0); Alkaline Phosphatase 80 U/L (38-126); Blood Urea Nitrogen 28 mg/dl (7-17); Calcium 9.6 mg/dl (8.4-10.2); Carbon Dioxide 24 mmol/L (22-30); Chloride 110 mmol/L (98-107); Estimated Creatinine Clearance 55 ml/min; Glucose 103 mg/dl (70-99); Sodium 143 mmol/L (135-145); Total Bilirubin 0.9 mg/dl (0.2-1.3); Total Protein 6.3 g/dl (6.3-8.2); eGFR > 60.00
--- NOTE | 2024-09-15 12:43 | W.PN.HOSP.TC ---
Today's Communication/Plan
-
dc xanax
neuro recs
monitor for po intake
risperdial prn if needed
Assessment / Plan
Assessment / Plan
Gen-awake, alert, confused, NAD
HEENT-NC, AT, anicteric, clear oral mm
Neck-supple
CV-reg, no M, +S1/S2
Lungs-clear B/L
Abd-soft, NT, ND
Ext-no edema
Musculoskeletal-no cyanosis, clubbing
Skin-warm and dry
Neuro-grossly non-focal
Psych-calm, cooperative
Hypoglycemia -unclear etiology. believes she may have accidentally taken his metformin. states that her appetite at home is great, she does not skip any meals.
A.m. cortisol 15, doubt adrenal insufficiency.
Hypoglycemia resolved.
Ambulatory dysfunction -nursing notes that she is weak. states that at home she ambulates without any assistive devices.
Neurology consulted for lower extremity weakness. They raised the concern for potential or possible seizure. Brain MRI ordered. MRI of the brain with no evidence of acute intracranial abnormality. Mild to moderate diffuse atrophy noted. Small
vessel ischemic disease.
Defer EEG to neurology
Dementia with behavioral disturbances. Xanax seems to sedate patient. Will dc it for now. Will start patient on Risperdal prn.
Generalized anxiety disorder
Osteoporosis
Hyperlipidemia -atorvastatin.
DNR
PT/OT-SNF. Will require auth.
Updated patient spouse over the phone in details.
Anticipated Discharge: 24 - 48 hours
Subjective/Interval History
-
Date of Service: September 15, 2024
was agitated overnight-require ativan to be given
Objective Data
-
Labs:
Laboratory Results
09/15/24
07:36
WBC 7.2
Hgb 12.2
Hct 35.1 L
Plt Count 161
Sodium 143
Potassium 4.0
Chloride 110 H
Carbon Dioxide 24
BUN 28 H
Creatinine 0.6
Glucose 103 H
Calcium 9.6
Total Bilirubin 0.9
AST 49 H
ALT 47 H
Alkaline Phosphatase 80
Vital Signs:
Vital Signs
Temp Pulse Resp BP Pulse Ox
98.1 F 72 17 124/81 98
09/15/24 07:05 09/15/24 07:05 09/15/24 07:05 09/15/24 07:05 09/15/24 07:05
I&O
09/14/24 09/15/24 09/16/24
06:59 06:59 06:59
Intake Total 1800 / 1800 720 / 720
Output Total 0 / 0
Balance 1800 / 1800 720 / 720
Data Reviewed
-
Total Time Spent with Patient (in minutes): 55
--- NOTE | 2024-09-15 14:27 | PN.CDI ---
CDI
- -
CDI:
Physician Documentation Request
Admit Date: 09/12/24 20:21
Dear Doctor Curtis,
Please review the following and provide your response in the progress notes.
Clinical Indicators:
Height: 5 ft 6 in
Weight:104 lb 5 oz
BMI:16.8
If possible, please provide an associated diagnosis related to the abnormal BMI, such as:
BMI < or = to 19
Underweight
Cachectic
- Other
Use of terms such as suspected, likely, concern for, or probable (associated with a specific diagnosis that is being evaluated, monitored, or treated as if it exists) are acceptable and can be coded in the inpatient setting, when documented at the
time of discharge.
Thank you,
Pilra Mora RN
CDI Specialist
[facility]
Please use your independent medical judgment in providing your response.
[2024-09-15 14:49] VITALS: BMI 16.8
[2024-09-15 15:10] VITALS: BP 164/76
[2024-09-15 16:49] LABS: Glucose - Point of Care 105 mg/dl (70-99)
[2024-09-15] MEDS: LOVENOX 40 MG SC (17:18)
[2024-09-15] MEDS: LIPITOR 10 MG PO (17:19)
--- NOTE | 2024-09-15 17:26 | CM ---
Pt needed MRI today. Pt was too sleepy for PT OT evals.
Pt will need update evals for SNF placement .
Spoke with Cj [phone] explained pt will need updated PT OT and located SNF.
After located SNF will need auth .
[facility] has no beds.
Check with [facility] and [facility] for bed tomorrow.
PLAN To SNF after indicated and auth obtained
[2024-09-16 06:00] VITALS: BMI 15.8
[2024-09-16 07:51] VITALS: BP 165/70
[2024-09-16 08:19] LABS: Glucose - Point of Care 80 mg/dl (70-99)
[2024-09-16] MEDS: NAMENDA 10 MG PO ×2 (08:46→20:15)
[2024-09-16] MEDS: ZOLOFT 50 MG PO (08:46)
[2024-09-16] MEDS: EXELON PATCH 4.6 MG TRANSDERM (08:46)
[2024-09-16] MEDS: OSCAL 500 + D 500 MG PO (08:46)
--- NOTE | 2024-09-16 09:35 | CM ---
Spoke with dgt Mihaela [phone] at length concerning her mom .
Pt will need to be able to participate in PT OT evals. Yesterday she had a test and was sleepy.
After evals done . Family will indicate which SNF they wanted [facility] or [facility] ( which [place] bed [place])
Pt will need an auth with [facility].
SNF asked what is pts disp after SNF. Dgt will speak with her dad and call back .
PLAN To SNF after located and auth obtained
--- NOTE | 2024-09-16 11:23 | W.PN.HOSP.TC ---
Today's Communication/Plan
-
PT/OT
Await placement
Assessment / Plan
Assessment / Plan
Gen-awake, alert, confused, NAD
HEENT-NC, AT, anicteric, clear oral mm
Neck-supple
CV-reg, no M, +S1/S2
Lungs-clear B/L
Abd-soft, NT, ND
Ext-no edema
Musculoskeletal-no cyanosis, clubbing
Skin-warm and dry
Neuro-grossly non-focal
Psych-calm, cooperative
Hypoglycemia -unclear etiology. believes she may have accidentally taken his metformin. states that her appetite at home is great, she does not skip any meals.
A.m. cortisol 15, doubt adrenal insufficiency.
Hypoglycemia resolved.
Ambulatory dysfunction -nursing notes that she is weak. states that at home she ambulates without any assistive devices.
Neurology consulted for lower extremity weakness. They raised the concern for potential or possible seizure. Brain MRI ordered. MRI of the brain with no evidence of acute intracranial abnormality. Mild to moderate diffuse atrophy noted. Small
vessel ischemic disease.
Defer EEG to neurology
Probably Dementia with behavioral disturbances. Xanax seems to sedate patient. Will dc it for now. Will start patient on Risperdal prn.
Generalized anxiety disorder
Osteoporosis
Hyperlipidemia -atorvastatin.
Underweight
DNR
PT/OT-SNF. Will require auth.
Updated patient spouse over the phone in details on 09/15/24
update daughter at bedside in details.
Anticipated Discharge: Within 24 hours
Subjective/Interval History
-
Date of Service: September 16, 2024
awake
eating breakfast
not agitated
daughter at bedside
Objective Data
-
Vital Signs:
Vital Signs
Temp Pulse Resp BP Pulse Ox
98.2 F 65 20 165/70 97
09/16/24 07:51 09/16/24 07:51 09/16/24 07:51 09/16/24 07:51 09/16/24 07:51
I&O
09/15/24 09/16/24 09/17/24
06:59 06:59 06:59
Intake Total 720 / 720 290 / 290
Output Total 0 / 0
Balance 720 / 720 290 / 290
[2024-09-16 12:02] VITALS: BP 169/79; PULSE 76; O2SAT 98; O2SAT 99
[2024-09-16 12:16] LABS: Glucose - Point of Care 158 mg/dl (70-99)
[2024-09-16 15:29] VITALS: BP 127/49
[2024-09-16] MEDS: LIPITOR 10 MG PO (17:17)
[2024-09-16] MEDS: LOVENOX 40 MG SC (17:17)
[2024-09-16 18:06] LABS: Glucose - Point of Care 198 mg/dl (70-99)
[2024-09-16] MEDS: RISPERDAL 0.25 MG PO (20:05)
[2024-09-16 22:03] LABS: Glucose - Point of Care 158 mg/dl (70-99)
[2024-09-16 23:03] VITALS: BP 139/53
[2024-09-17 07:20] VITALS: BP 162/74
[2024-09-17 07:23] LABS: Glucose - Point of Care 102 mg/dl (70-99)
[2024-09-17] MEDS: EXELON PATCH 4.6 MG TRANSDERM (08:02)
[2024-09-17] MEDS: ZOLOFT 50 MG PO (08:03)
[2024-09-17] MEDS: OSCAL 500 + D 500 MG PO (08:03)
[2024-09-17] MEDS: NAMENDA 10 MG PO ×2 (08:03→21:51)
--- NOTE | 2024-09-17 09:56 | CM ---
Spoke with dgt Mihaela [phone] about dc plan.
PT OT evals done indicates SNF.
Family will indicate which SNF they wanted [facility] or [facility] ( which if bed available at dc)
Pt had behaviors last night . aware
Pt will need an auth with [facility].
PLAN To SNF after located and auth obtained
--- NOTE | 2024-09-17 11:09 | W.PN.HOSP.TC ---
Today's Communication/Plan
-
await placement
risperdial if needed
Assessment / Plan
Assessment / Plan
Gen-awake, alert, confused, NAD
HEENT-NC, AT, anicteric, clear oral mm
Neck-supple
CV-reg, no M, +S1/S2
Lungs-clear B/L
Abd-soft, NT, ND
Ext-no edema
Musculoskeletal-no cyanosis, clubbing
Skin-warm and dry
Neuro-grossly non-focal
Psych-calm, cooperative
Hypoglycemia -unclear etiology. believes she may have accidentally taken his metformin. states that her appetite at home is great, she does not skip any meals.
A.m. cortisol 15, doubt adrenal insufficiency.
Hypoglycemia resolved.
Ambulatory dysfunction -nursing notes that she is weak. states that at home she ambulates without any assistive devices.
Neurology consulted for lower extremity weakness. They raised the concern for potential or possible seizure. Brain MRI ordered. MRI of the brain with no evidence of acute intracranial abnormality. Mild to moderate diffuse atrophy noted. Small
vessel ischemic disease.
Defer EEG to neurology
Dementia with behavioral disturbances. Xanax seems to sedate patient. Will dc it for now. Will start patient on Risperdal prn.
Generalized anxiety disorder
Osteoporosis
Hyperlipidemia -atorvastatin.
Underweight
DNR
PT/OT-SNF. Will require auth.
update daughter at bedside in details on 09/16/24
Anticipated Discharge: Within 24 hours
Subjective/Interval History
-
Date of Service: September 17, 2024
remains pleasantly confused
not agitated
has not been in restraints
Objective Data
-
Labs:
Laboratory Results
09/17/24
10:37
WBC Pending
Hgb Pending
Hct Pending
Plt Count Pending
Sodium Pending
Potassium Pending
Chloride Pending
Carbon Dioxide Pending
BUN Pending
Creatinine Pending
Glucose Pending
Calcium Pending
Vital Signs:
Vital Signs
Temp Pulse Resp BP Pulse Ox
97.9 F 61 18 162/74 94
09/17/24 07:20 09/17/24 07:20 09/17/24 07:20 09/17/24 07:20 09/17/24 09:36
I&O
09/16/24 09/17/24 09/18/24
06:59 06:59 06:59
Intake Total 290 / 290 1180 / 1180
Balance 290 / 290 1180 / 1180
[2024-09-17 11:15] LABS: % Basophils 0.3 % (0-2); % Eosinophils 2.7 % (0-6); % Immature Granulocytes 0.4 % (0-0.5); % Lymphocytes 23.8 % (20.5-51.1); % Monocytes 8.8 % (1.7-9.3); Absolute Eosinophils 0.2 10^3/uL (0-0.7); Absolute Lymphocytes 1.6 10^3/uL (1.2-3.4); Absolute Monocytes 0.6 10^3/uL (0.1-0.6); Absolute Neutrophils 4.3 10^3/uL (1.4-6.5); Hematocrit 35.2 % (37.0-47.0); Hemoglobin 12.1 g/dL (12.0-16.0); Mean Corp Hgb Conc. 34.4 g/dL (33.0-37.0); Mean Corpuscular Hgb 29.8 pg (27.0-31.0); Mean Corpuscular Volume 86.7 fL (81.0-99.0); Mean Platelet Volume 10.8 fL (7.4-10.4); Nucleated Red Blood Cells % 0 %; Platelet Count 196 10^3/uL (130-400); Red Blood Cell Count 4.06 10^6/uL (4.20-5.40); Red Cell Dist. Width 12.8 % (11.5-14.5); White Blood Cell Count 6.7 10^3/uL (4.8-10.8)
[2024-09-17 11:18] LABS: Blood Urea Nitrogen 20 mg/dl (7-17); Carbon Dioxide 30 mmol/L (22-30); Chloride 107 mmol/L (98-107); Estimated Creatinine Clearance 52 ml/min; Glucose 94 mg/dl (70-99); Potassium 3.8 mmol/L (3.5-5.1); Sodium 143 mmol/L (135-145); eGFR > 60.00
[2024-09-17 11:43] LABS: Glucose - Point of Care 88 mg/dl (70-99)
[2024-09-17 14:57] VITALS: BP 117/56
[2024-09-17 15:27] VITALS: BP 135/60
[2024-09-17 16:40] LABS: Glucose - Point of Care 138 mg/dl (70-99)
[2024-09-17] MEDS: LOVENOX 40 MG SC (17:00)
[2024-09-17] MEDS: LIPITOR 10 MG PO (17:00)
[2024-09-17] MEDS: RISPERDAL 0.25 MG PO (21:55)
[2024-09-18 07:35] LABS: Glucose - Point of Care 98 mg/dl (70-99)
[2024-09-18] MEDS: EXELON PATCH 4.6 MG TRANSDERM (08:51)
[2024-09-18] MEDS: NAMENDA 10 MG PO (08:52)
[2024-09-18] MEDS: ZOLOFT 50 MG PO (08:52)
[2024-09-18] MEDS: OSCAL 500 + D 500 MG PO (08:52)
--- NOTE | 2024-09-18 11:28 | W.PN.HOSP.TC ---
Addendum entered and electronically signed by Anthony Acevedo MD 09/18/24 16:20:
Moderate protein calorie malnutrition of chronic illness
suspected Progression of Dementia with behavioral disturbances
Original Note:
Today's Communication/Plan
-
melatonin
increase risperdial for prn
await placement
Assessment / Plan
Assessment / Plan
Gen-awake, alert, confused, NAD
HEENT-NC, AT, anicteric, clear oral mm
Neck-supple
CV-reg, no M, +S1/S2
Lungs-clear B/L
Abd-soft, NT, ND
Ext-no edema
Musculoskeletal-no cyanosis, clubbing
Skin-warm and dry
Neuro-grossly non-focal
Psych-calm, cooperative
Hypoglycemia -unclear etiology. believes she may have accidentally taken his metformin. states that her appetite at home is great, she does not skip any meals.
A.m. cortisol 15, doubt adrenal insufficiency.
Hypoglycemia resolved.
Ambulatory dysfunction -nursing notes that she is weak. states that at home she ambulates without any assistive devices.
Neurology consulted for lower extremity weakness. They raised the concern for potential or possible seizure. Brain MRI ordered. MRI of the brain with no evidence of acute intracranial abnormality. Mild to moderate diffuse atrophy noted. Small
vessel ischemic disease.
Defer EEG to neurology
Dementia with behavioral disturbances. Xanax seems to sedate patient. Will dc it for now. start melatonin Will start patient on Risperdal prn -dose increased. Not in restraints
Generalized anxiety disorder
Osteoporosis
Hyperlipidemia -atorvastatin.
Underweight
DNR
PT/OT-SNF. Will require auth. Await placement
update daughter at bedside in details on 09/16/24
Anticipated Discharge: Within 24 hours
Subjective/Interval History
-
Date of Service: September 18, 2024
Did not sleep much overnight
currently sleeping and resting
sleep cycle is off
Objective Data
-
Vital Signs:
Vital Signs
Temp Pulse Resp BP Pulse Ox
97.2 F 66 18 135/60 99
09/17/24 15:27 09/17/24 15:27 09/17/24 15:27 09/17/24 15:27 09/17/24 15:27
I&O
09/17/24 09/18/24 09/19/24
06:59 06:59 06:59
Intake Total 1180 / 1180 240 / 240
Balance 1180 / 1180 240 / 240
--- NOTE | 2024-09-18 11:31 | PN.CDI ---
CDI
- -
CDI:
Physician Documentation Request
Admit Date: 09/12/24 20:21
Dear Doctor Curtis ,
Please review the following and provide your response in the progress notes.
Clinical Indicators:
Pt admitted with severe dementia who presents with intractable hypoglycemia
Neurology consult, ' Ms. Adan has a history of progressive cognitive decline over the past years. She reportedly had Pirmella workup in 2021 was diagnosed with dementia by local neurologist..She has also stopped cooking for the past 6 months.
The has been assisting with medication management for 6-8 months and bathing. ....Neurological: Positive for progressive cognitive decline... Dementia,LBD?...'
Progress notes 09/15 -09/17, ' Ambulatory dysfunction -nursing notes that she is weak. states that at home she ambulates without any assistive devices.Neurology consulted for lower extremity weakness. They raised the concern for potential or
possible seizure. Brain MRI ordered. MRI of the brain with no evidence of acute intracranial abnormality. Mild to moderate diffuse atrophy noted. Small vessel ischemic disease.'
Please provide in your notes the diagnosis associated with the documented progressive cognitive decline /above findings:
Progression of Dementia with behavioral disturbances
Dementia without progression
Other ( please specify)
Use of terms such as suspected, likely, concern for, or probable (associated with a specific diagnosis that is being evaluated, monitored, or treated as if it exists) are acceptable and can be coded in the inpatient setting, when documented at the
time of discharge.
Thank you,
Pilar Mora RN
CDI Specialist
[place] [facility]
Please use your independent medical judgment in providing your response.
--- NOTE | 2024-09-18 11:43 | PN.CDI ---
CDI
- -
CDI:
Physician Documentation Request
Admit Date: 09/12/24 20:21
Dear Doctor Curtis,
Please review the following and provide your response in the progress notes.
Clinical Indicators:
Pt admitted with severe dementia who presents with intractable hypoglycemia
Nutrition consult 09/17, ' CBW: 97 lbs 12.8 oz BMI 15.8 underweight range 09/16, pts weight per external medical summary listed as 08/19 104 lbs now reflective of a 7 lb (7%) weight loss in 1 month. With weight loss of > 5% in 1 month and and during
visit RD able to visualize temporal wasting, protrusion of clavicle , apparent ribs, muscle loss over interosseous pt meets AND/ASPEN criteria for moderate protein calorie malnutrition of chronic illness. Encourage intakes of meals and supplements
as tolerated.....Assessment Subcutaneous loss of over rib cage severity moderate , muscle loss over temporal ,interosseous, clavicle Moderate ...'
BMI 15.8
Based on the above information and your assessment, which of the following most accurately represents the patient's nutritional status?
Moderate protein calorie malnutrition
Other ( please specify)
[place] Criteria (ACP Hospitalist 2017)
2 or more criteria must be present for either
non severe or severe malnutrition
Note that the criteria differs related to the
presence of an acute or chronic illness
Acute Illness Chronic Illness
Energy Intake Non Severe: <75% for >7 days Non Severe: <75% for >1 month
Severe: <50% for >5 days Severe: <75% for >1 month
Weight Loss Non Severe: 1-2% over 1 week Non Severe: 5% over 1 month
5% over 1 month 7.5% over 3 months
7.5% over 3 months 10% over 6 months
1 year N/A 20% over 1 year
Severe: >2% over 1 week Severe: >5% over 1 month
>5% over 1 month >7.5% over 3 months
>7.5% over 3 months >10% over 6 months
1 year N/A >20% over 1 year
Body Fat Non Severe: Mild Decrease Non Severe: Mild Loss
Severe: Moderate Decrease Severe: Severe Loss
Muscle Mass Non Severe: Mild Decrease Non Severe: Mild Loss
Severe: Moderate Decrease Severe: Severe Loss
Fluid Accumulation Non Severe: Mild Accumulation Non Severe: Mild Accumulation
Severe: Moderate to severe Severe: Moderate to severe
accumulation accumulation
Reduced Fire Prevention Research Engineer Strength Non Severe: N/A Non Severe: N/A
Severe: Measurably reduced Severe: Measurably reduced
Use of terms such as suspected, likely, concern for, or probable (associated with a specific diagnosis that is being evaluated, monitored, or treated as if it exists) are acceptable and can be coded in the inpatient setting, when documented at the
time of discharge.
Thank you,
Pilar Mora RN
CDI Specialist
[place] [facility]
Please use your independent medical judgment in providing your response.
[2024-09-18 12:11] LABS: Glucose - Point of Care 135 mg/dl (70-99)
--- NOTE | 2024-09-18 13:52 | PTCARENOTE ---
Pt family requested protein drinks. made aware.
[2024-09-18 15:20] VITALS: BP 132/54
[2024-09-18 15:32] VITALS: BP 132/54; PULSE 84; O2SAT 100
[2024-09-18 15:36] VITALS: BP 132/54; PULSE 84; O2SAT 100
--- NOTE | 2024-09-18 16:24 | CM ---
MD indicated pt medically ready for discharge.
Spoke with t Mihaela [phone] about dc plan.
PT OT evals done indicates SNF.
Spoke with Megan [facility] bed available if auth obtained.
Yulia Rubinbabar rep obtained auth skilled level 1 from 09/18/24 to 09/23/24 auth number [id number] .
[employer] notified of auth .
RN aware. Medical nec form completed . Ambulance to be set up Auth [id number]
[facility]
report [phone]
fax [phone]
PLAN To [facility].
[2024-09-18] MEDS: LOVENOX 40 MG SC (17:48)
[2024-09-18] MEDS: LIPITOR 10 MG PO (17:48)
[2024-09-18 19:30] VITALS: BP 133/55
[2024-09-18 20:35] LABS: Glucose - Point of Care 93 mg/dl (70-99)
[2024-09-18 20:36] VITALS: BP 129/62
--- NOTE | 2024-09-18 20:43 | W.PN.UPDATE ---
Update Note
Progress Note Update
~20:30 Asked to evaluate patient by RN, due to patient being more lethargic and elevated temp, 100.1 axillary. Patient is due to be discharged and awaiting transport to [facility] Per RN, patient is usually at the nurses station due to increased
activity at HS. Patient is sleeping and does awaken to verbal stimuli but does not stay awake. Per daughter at bedside, patient has been sleeping all afternoon, per patient's who was also with her during the afternoon until the daughter
arrived.
Patient evaluated, does respond to tactile stimuli, not answering questions. Lethargic Rectal temp 100.0, blood glucose 93, VS: BP 129/62, HR 78, Resp 18.
Patient may have increased lethargy due to disrupted sleep/wake cycle. Patient afebrile, VSS, does respond to tactile stimuli. Out of an abundance of caution, due to increased lethargy. Ordered: CBC, BMP UA, Flu A&B, COVID, Head CT.
Spoke with daughter at bedside regarding patient's current status. Daughter in agreement with holding off on discharge tonight. Discharge on hold at this time. Please re-evaluate in am.
22:50 received results of testing. COVID POSITIVE. Patient asymptomatic, on room air, will hold off on ordering Paxlovid at this time. Supportive care to continue overnight.
[2024-09-18 22:01] LABS: Hematocrit 34.9 % (37.0-47.0); Hemoglobin 12.1 g/dL (12.0-16.0); Mean Corp Hgb Conc. 34.7 g/dL (33.0-37.0); Mean Corpuscular Hgb 29.9 pg (27.0-31.0); Mean Corpuscular Volume 86.2 fL (81.0-99.0); Mean Platelet Volume 10.4 fL (7.4-10.4); Platelet Count 220 10^3/uL (130-400); Red Blood Cell Count 4.05 10^6/uL (4.20-5.40); White Blood Cell Count 8.1 10^3/uL (4.8-10.8)
[2024-09-18] MEDS: NAMENDA PO (22:13)
[2024-09-18] MEDS: MELATONIN PO (22:13)
[2024-09-18 22:15] LABS: Blood Urea Nitrogen 24 mg/dl (7-17); Calcium 9.6 mg/dl (8.4-10.2); Carbon Dioxide 27 mmol/L (22-30); Chloride 106 mmol/L (98-107); Estimated Creatinine Clearance 52 ml/min; Glucose 102 mg/dl (70-99); Potassium 4.2 mmol/L (3.5-5.1); Sodium 140 mmol/L (135-145); eGFR > 60.00
--- NOTE | 2024-09-18 22:18 | PTCARENOTE ---
Abdiel Foreman notified that patient will not be discharged this evening d/t [facility]. Daughter Kenyatta at bedside and aware of patient's status and discharge being on hold for this evening.
[2024-09-18 22:29] LABS: COVID-19 Antigen Positive (Negative)
--- NOTE | 2024-09-18 23:00 | PTCARENOTE ---
Patient lethargic, change from baseline. Patient typically restless and confused. Only opening eyes to tactile stimuli. Patient supposed to be discharged to [facility] this evening. TORSTEN Salazar notified and in to assess patient. Rectal
temperature 100.0. CBC and BMP sent to lab. COVID and Flu swab also sent per order. Lab called and reported a positive COVID test. TORSTEN Salazar made aware, Nursing Lead Java Developer Architect made aware. Report given to CARI Smith on . Patient
transferred to private room on on . Daughter Kenyatta aware.
[2024-09-18 23:28] VITALS: BP 182/94; BMI 16.7
[2024-09-18] MEDS: RISPERDAL 0.5 MG PO (23:39)
--- NOTE | 2024-09-18 23:45 | PTCARENOTE ---
Pt arrived to room 420-01. Pt transferred from stretcher to bed. Pt AAO- self. Pt agitated, irritable and yelling in room. Pt oriented to room, call valdez placed within reach. Bed alarm in place.
[2024-09-19 03:35] VITALS: BP 145/63
[2024-09-19 06:00] VITALS: BMI 16.7
[2024-09-19] MEDS: EXELON PATCH 4.6 MG TRANSDERM (07:59)
[2024-09-19] MEDS: NAMENDA PO ×2 (08:00→11:41)
[2024-09-19] MEDS: OSCAL 500 + D PO ×2 (08:00→11:41)
[2024-09-19] MEDS: ZOLOFT PO ×2 (08:00→11:41)
[2024-09-19 08:15] VITALS: BP 144/66
--- NOTE | 2024-09-19 10:52 | CM ---
AICHA reviewed chart, reviewed with Admissions at [facility], will re-assess for Sunday. Patient currently on 1:1. Auth previously approved: 09/18/24 to 09/23/24 auth number [id number]. CM will continue to follow for all discharge planning needs.
Plan; [facility] re-assess Sunday.
--- NOTE | 2024-09-19 11:39 | W.PN.HOSP.TC ---
Today's Communication/Plan
-
hold dc today
monitor O2 status
Assessment / Plan
Assessment / Plan
Gen-awake, alert, confused, NAD
HEENT-NC, AT, anicteric, clear oral mm
Neck-supple
CV-reg, no M, +S1/S2
Lungs-clear B/L
Abd-soft, NT, ND
Ext-no edema
Musculoskeletal-no cyanosis, clubbing
Skin-warm and dry
Neuro-grossly non-focal
Psych-calm, cooperative
Acute COVID 19 positive- stable on room air.
Hypoglycemia -unclear etiology. believes she may have accidentally taken his metformin. states that her appetite at home is great, she does not skip any meals.
A.m. cortisol 15, doubt adrenal insufficiency.
Hypoglycemia resolved.
Ambulatory dysfunction -nursing notes that she is weak. states that at home she ambulates without any assistive devices.
Neurology consulted for lower extremity weakness. They raised the concern for potential or possible seizure. Brain MRI ordered. MRI of the brain with no evidence of acute intracranial abnormality. Mild to moderate diffuse atrophy noted. Small
vessel ischemic disease.
Defer EEG to neurology
Progressive Dementia with behavioral disturbances. Xanax seems to sedate patient. Will dc it for now. start melatonin Will start patient on Risperdal prn -dose increased. Not in restraints. Repeat CT head on 09/18/24 with no new changes. Sleep
cycle has reversed. d/w with Rn to make sure awake during daytime and provide melatonin if needed at bedtime to fix sleep cycle.
Generalized anxiety disorder
Osteoporosis
Hyperlipidemia -atorvastatin.
Underweight
DNR
PT/OT-SNF.
Anticipated Discharge: Within 24 hours
Subjective/Interval History
-
Date of Service: September 19, 2024
Overnight pt was found to be COVID positive
stable on room air
didn't sleep much overnight once again and catching up on sleep during day time
Objective Data
-
Vital Signs:
Vital Signs
Temp Pulse Resp BP Pulse Ox
98.6 F 67 20 144/66 97
09/19/24 08:15 09/19/24 08:15 09/19/24 08:15 09/19/24 08:15 09/19/24 08:15
I&O
09/18/24 09/19/24 09/20/24
06:59 06:59 06:59
Intake Total 240 / 240
Balance 240 / 240
[2024-09-19 15:00] VITALS: BP 146/66
[2024-09-19] MEDS: LOVENOX SC (15:57)
[2024-09-19] MEDS: LIPITOR 10 MG PO (15:57)
[2024-09-19] MEDS: MELATONIN PO (16:04)
[2024-09-19] MEDS: RISPERDAL 0.5 MG PO (21:28)
[2024-09-19] MEDS: NAMENDA 10 MG PO (21:28)
[2024-09-20 00:06] VITALS: BP 145/66
[2024-09-20] MEDS: TYLENOL 650 MG PO (01:34)
[2024-09-20 07:00] VITALS: BP 151/72
[2024-09-20] MEDS: EXELON PATCH 4.6 MG TRANSDERM (09:33)
[2024-09-20] MEDS: OSCAL 500 + D 500 MG PO (09:42)
[2024-09-20] MEDS: NAMENDA 10 MG PO ×2 (09:42→22:03)
[2024-09-20] MEDS: ZOLOFT 50 MG PO (09:43)
--- NOTE | 2024-09-20 11:57 | W.PN.HOSP.TC ---
Addendum entered and electronically signed by Anthony Acevedo MD 09/20/24 12:16:
Per case management facility will reassess patient on Sunday. Discharge canceled.
Original Note:
Today's Communication/Plan
-
dc to SNF
Assessment / Plan
Assessment / Plan
Gen-awake, alert, confused, NAD
HEENT-NC, AT, anicteric, clear oral mm
Neck-supple
CV-reg, no M, +S1/S2
Lungs-clear B/L
Abd-soft, NT, ND
Ext-no edema
Musculoskeletal-no cyanosis, clubbing
Skin-warm and dry
Neuro-grossly non-focal
Psych-calm, cooperative
Acute COVID 19 positive- stable on room air.
Hypoglycemia -unclear etiology. believes she may have accidentally taken his metformin. states that her appetite at home is great, she does not skip any meals.
A.m. cortisol 15, doubt adrenal insufficiency.
Hypoglycemia resolved.
Ambulatory dysfunction -nursing notes that she is weak. states that at home she ambulates without any assistive devices.
Neurology consulted for lower extremity weakness. They raised the concern for potential or possible seizure. Brain MRI ordered. MRI of the brain with no evidence of acute intracranial abnormality. Mild to moderate diffuse atrophy noted. Small
vessel ischemic disease. No seizure like activity noted so far.
Progressive Dementia with behavioral disturbances. Xanax seems to sedate patient. Will dc it for now. start melatonin Will start patient on Risperdal prn -dose increased. Not in restraints. Repeat CT head on 09/18/24 with no new changes. Sleep
cycle has reversed. d/w with Rn to make sure awake during daytime and provide melatonin if needed at bedtime to fix sleep cycle.
Generalized anxiety disorder
Osteoporosis
Hyperlipidemia -atorvastatin.
Underweight
DNR
PT/OT-SNF.
Anticipated Discharge: Today
Subjective/Interval History
-
Date of Service: September 20, 2024
Patient is awake and eating breakfast
Remains on room air
Objective Data
-
Vital Signs:
Vital Signs
Temp Pulse Resp BP Pulse Ox
97.5 F 61 18 151/72 96
09/20/24 07:00 09/20/24 07:00 09/20/24 07:00 09/20/24 07:00 09/20/24 08:29
I&O
09/19/24 09/20/24 09/21/24
06:59 06:59 06:59
Intake Total 600 / 600
Balance 600 / 600
[2024-09-20 15:25] VITALS: BP 131/69
[2024-09-20] MEDS: MELATONIN 5 MG PO (16:47)
[2024-09-20] MEDS: LOVENOX 40 MG SC (16:47)
[2024-09-20] MEDS: LIPITOR 10 MG PO (16:47)
[2024-09-20] MEDS: RISPERDAL 0.5 MG PO (22:03)
[2024-09-20 23:23] VITALS: BP 124/60
[2024-09-21 07:00] VITALS: BP 137/68
[2024-09-21] MEDS: OSCAL 500 + D 500 MG PO (09:28)
[2024-09-21] MEDS: EXELON PATCH 4.6 MG TRANSDERM (09:28)
[2024-09-21] MEDS: ZOLOFT 50 MG PO (09:28)
[2024-09-21] MEDS: NAMENDA 10 MG PO (09:28)
--- NOTE | 2024-09-21 11:51 | W.PN.HOSP.TC ---
Today's Communication/Plan
-
Await placement
Assessment / Plan
Assessment / Plan
Gen-awake, alert, confused, NAD
HEENT-NC, AT, anicteric, clear oral mm
Neck-supple
CV-reg, no M, +S1/S2
Lungs-clear B/L
Abd-soft, NT, ND
Ext-no edema
Musculoskeletal-no cyanosis, clubbing
Skin-warm and dry
Neuro-grossly non-focal
Psych-calm, cooperative
Hospital course: 79-year-old female past medical history of dementia, hyperlipidemia, ambulatory dysfunction, anxiety disorder, osteoporosis who was coming to the hospital being unresponsive by EMS. EMS found patient blood glucose to be 36 and was
given D50. It was suspected patient might have accidentally taken patient 's medication. Patient blood glucose and POC was monitored. Hypoglycemia resolved. Neurology was consulted. Patient underwent MRI of the brain MRI of the brain
with no evidence of acute intracranial abnormality. Mild to moderate diffuse atrophy noted. Small vessel ischemic disease. Neurology was consulted for lower extremity weakness however once patient was more awake seems to be at her baseline.
Patient was by physical and Occupational Therapy. Xanax was discontinued. Lorazepam was discontinued. Patient was started Risperdal and melatonin. Patient was found to be COVID-19 positive. Patient was asymptomatic and did not require
oxygenation. Patient was eval by physical and Occupational Therapy discharged to SNF.
Acute COVID 19 positive- stable on room air.
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 Xanax seems to sedate patient. Will dc it for now. start melatonin Will start patient on Risperdal prn -dose increased. Not in restraints. Repeat CT head on 09/18/24 with no new
changes. Sleep cycle has reversed. d/w with Rn to make sure awake during daytime and provide melatonin if needed at bedtime to fix sleep cycle. Needs assistance with feeding.
Hypoglycemia -unclear etiology. believes she may have accidentally taken his metformin. states that her appetite at home is great, she does not skip any meals.
A.m. cortisol 15, doubt adrenal insufficiency.
Hypoglycemia resolved.
Ambulatory dysfunction -nursing notes that she is weak. states that at home she ambulates without any assistive devices.
Neurology consulted for lower extremity weakness. They raised the concern for potential or possible seizure. Brain MRI ordered. MRI of the brain with no evidence of acute intracranial abnormality. Mild to moderate diffuse atrophy noted. Small
vessel ischemic disease. No seizure like activity noted so far.
Generalized anxiety disorder
Osteoporosis
Hyperlipidemia -atorvastatin.
Underweight
DNR
PT/OT-SNF. [facility] to reassess tomorrow
Discussed with patient sister and daughter at bedside in details
Anticipated Discharge: Within 24 hours
Subjective/Interval History
-
Date of Service: September 21, 2024
awake
eating breakfast
Objective Data
-
Vital Signs:
Vital Signs
Temp Pulse Resp BP Pulse Ox
97.0 F 72 24 137/68 99
09/21/24 07:00 09/21/24 07:00 09/21/24 07:00 09/21/24 07:00 09/21/24 07:00
I&O
09/20/24 09/21/24 09/22/24
06:59 06:59 06:59
Intake Total 600 / 600 1140 / 1140
Balance 600 / 600 1140 / 1140
[2024-09-21] MEDS: TYLENOL 650 MG PO (12:59)
[2024-09-21 15:00] VITALS: BP 112/57
[2024-09-21] MEDS: MELATONIN 5 MG PO (18:17)
[2024-09-21] MEDS: LOVENOX SC ×2 (18:17→18:23)
[2024-09-21] MEDS: LIPITOR 10 MG PO (18:17)
[2024-09-21] MEDS: NAMENDA PO (20:28)
--- NOTE | 2024-09-22 06:53 | CON.NEURO ---
Consultation
Order
Date of Consultation: 09/22/24
Requesting Provider: Anthony Acevedo MD
Reason for Consult: Lethargy
Neurology Consultation Note.
HPI: This is an 79-year-old right-handed woman who presented to [facility] on 09/12/2024 with transient episode of unresponsiveness.
Neurology service was reconsulted due to new lethargy noted upon discharge on 09/21/2024.
The patient was diagnosed with SARS-CoV-2 infection on 09/18/2024.
Review of blood work was notable for normal WBCs, sodium, creatinine.
Review of MAR was notable for increase of risperidone to 0.5 mg from 125 mg on 09/18/2024 and initiation of melatonin 5 mg on 09/20/2024.
Brain MRI without gadolinium (09/15/2024)�Mild to moderate diffuse atrophy
PMH: SARS-COV2 infection, dementia, HTN, DLP, osteoporosis, ambulatory dysfunction
PSH: Bilateral cataract extraction
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
All:NKDA
ROS: Unable due to encephalopathy
General: Well developed. In no acute distress.
Cardio: Regular rate and rhythm. Extremities are without cyanosis or edema.
Neuro:
Mental Status: Eyes closed, moans to deep sternal rub. Does not follow requests.
Cranial Nerves: Orthophoric primary gaze. Pupils are equally round, surgical. No nystagmus, no clear facial weakness.
Motor: Increased motor tone in upper and lower extremities.
Reflexes: Limited exam due to increased motor tone, negative clonus bilaterally.
Sensory: Grimaces to noxious stimuli
Coordination: Intermittent multifocal myoclonic movements
Gait: deferred
Assessment and Plan:
I. Toxic encephalopathy
II. Dementia, LBD?
III. Symptomatic seizure in settings of severe hypoglycemia
IV. Intermittent mild fatigue focal myoclonus. Differential diagnosis includes metabolic versus toxic versus epileptic
-Continue Telemetry monitoring
-Fall and delirium precautions
-Avoid CARPET BINDER depressants
-Please check ammonia, CK
-DVT prophylaxis.
I personally reviewed all radiology and labs along with past medical records pertinent to current medical problems. Total time spent in patient care is 60 minutes.
Thank you for allowing us to participate in the care of this patient. We will continue to follow. Please do not hesitate to contact us with any questions or concerns.
Subjective/Objective
Subjective Data
Date of Service: September 22, 2024
Objective Data
Vital Signs
Temp Pulse Resp BP Pulse Ox
37.1 C 73 20 112/57 96
09/21/24 15:00 09/21/24 15:00 09/21/24 15:00 09/21/24 15:00 09/21/24 15:00
Lab Results
09/18/24 21:34
09/18/24 21:34
Sodium 140 mmol/L (135-145) 09/18/24 21:34
Potassium 4.2 mmol/L (3.5-5.1) 09/18/24 21:34
BUN 24 mg/dl (7-17) H 09/18/24 21:34
Glucose 102 mg/dl (70-99) H 09/18/24 21:34
Calcium 9.6 mg/dl (8.4-10.2) 09/18/24 21:34
Patient Allergies
No Known Allergies Allergy (Verified 12/14/16 18:13)
Medications
-
Active Medications
Generic Name Dose Route Start Last Admin
Trade Name Freq PRN Reason Stop Dose Admin
Acetaminophen 650 mg 09/13/24 00:05 09/21/24 12:59
Acetaminophen 325 Mg Tablet PO 10/11/24 00:04 650 mg
Q4HPRN PRN Administration
mild pain/WINTER/temp> 100.4F
Atorvastatin Calcium 10 mg 09/13/24 18:00 09/21/24 18:17
Atorvastatin (Lipitor) 10 Mg Tablet PO 10/11/24 17:59 10 mg
QPM RADHA Administration
Calcium/Vitamin D 500 mg 09/13/24 08:00 09/21/24 09:28
Calcium Carbonate 500 Mg/Vitamin D 5 Mcg (200 Units) Tablet PO 10/11/24 07:59 500 mg
DAILY RADHA Administration
Dextrose 12.5 grams 09/13/24 00:05
Dextrose 50% (0.5 Grams/Ml) 50 Ml Syringe IV 10/11/24 00:04
[id number] PRN
hypoglycemia
Protocol
Enoxaparin Sodium 40 mg 09/13/24 18:00 09/21/24 18:23
Enoxaparin Sodium 40 Mg/0.4 Ml Syringe SC 10/11/24 17:59 Not Given
QPM RADHA
Glucagon 1 mg 09/13/24 00:05
Glucagon 1 Mg Vial IM 10/11/24 00:04
PRN PRN
hypoglycemia
Protocol
Melatonin 5 mg 09/18/24 20:00 09/21/24 18:17
Melatonin 5 Mg Tablet PO 10/16/24 19:59 5 mg
QPM RADHA Administration
Memantine 10 mg 09/13/24 08:00 09/21/24 20:28
Memantine 10 Mg Tablet PO 10/11/24 07:59 Not Given
BID RADHA
Risperidone 0.5 mg 09/18/24 11:28 09/20/24 22:03
Risperidone 0.25 Mg Tablet PO 10/13/24 16:59 0.5 mg
BIDPRN PRN Administration
agitation
Rivastigmine 4.6 mg 09/13/24 08:00 09/21/24 09:28
Rivastigmine (Exelon) 4.6 Mg Patch TRANSDERM 10/11/24 07:59 4.6 mg
DAILY RADHA Administration
Sertraline HCl 50 mg 09/13/24 08:00 09/21/24 09:28
Sertraline 50 Mg Tablet PO 10/11/24 07:59 50 mg
DAILY RADHA Administration
Sodium Chloride 0 flush 09/12/24 23:00
Sodium Chloride 0.9% (Flush) Syringe IV 10/10/24 22:59
PER PROTOCOL RADHA
Home Medications
�Medication �Instructions �Recorded
atorvastatin 10 mg tablet 10 mg PO QPM High cholesterol 12/14/16
calcium 600 mg (as 1 ea PO DAILY Supplement 12/14/16
carbonate)-vitamin D3 10 mcg (400
unit) tablet (Calcium 600 + D(3))
coenzyme Q10 200 mg capsule (Co 200 mg PO QPM Supplement 12/14/16
Q-10)
ascorbic acid (vitamin C) 250 mg 250 mg PO DAILY Supplement 09/12/24
tablet (Vitamin C)
memantine 10 mg tablet 10 mg PO BID Mental Health/Anxiety 09/12/24
rivastigmine 4.6 mg/24 hour 1 patch transdermal DAILY Mental 09/12/24
transdermal patch Health/Anxiety
sertraline 50 mg tablet 50 mg PO DAILY Depression 09/12/24
melatonin 5 mg tablet 5 mg PO QPM #10 tabs 09/18/24
risperidone 0.25 mg tablet 0.5 mg (2 x 0.25 mg) PO BIDPRN PRN 09/18/24
agitation #10 tabs
Vital Signs and Labs
-
Vital Signs and Labs:
Vital Signs
Temp Pulse Resp BP Pulse Ox
37.1 C 73 20 112/57 96
09/21/24 15:00 09/21/24 15:00 09/21/24 15:00 09/21/24 15:00 09/21/24 15:00
Lab Results
09/18/24 21:34
09/18/24 21:34
Sodium 140 mmol/L (135-145) 09/18/24 21:34
Potassium 4.2 mmol/L (3.5-5.1) 09/18/24 21:34
BUN 24 mg/dl (7-17) H 09/18/24 21:34
Glucose 102 mg/dl (70-99) H 09/18/24 21:34
Calcium 9.6 mg/dl (8.4-10.2) 09/18/24 21:34
Medications
-
Medications:
Generic Name Dose Route Start Last Admin
Trade Name Freq PRN Reason Stop Dose Admin
Acetaminophen 650 mg 09/13/24 00:05 09/21/24 12:59
Acetaminophen 325 Mg Tablet PO 10/11/24 00:04 650 mg
Q4HPRN PRN Administration
mild pain/WINTER/temp> 100.4F
Atorvastatin Calcium 10 mg 09/13/24 18:00 09/21/24 18:17
Atorvastatin (Lipitor) 10 Mg Tablet PO 10/11/24 17:59 10 mg
QPM RADHA Administration
Calcium/Vitamin D 500 mg 09/13/24 08:00 09/21/24 09:28
Calcium Carbonate 500 Mg/Vitamin D 5 Mcg (200 Units) Tablet PO 10/11/24 07:59 500 mg
DAILY RADHA Administration
Dextrose 12.5 grams 09/13/24 00:05
Dextrose 50% (0.5 Grams/Ml) 50 Ml Syringe IV 10/11/24 00:04
[id number] PRN
hypoglycemia
Protocol
Enoxaparin Sodium 40 mg 09/13/24 18:00 09/21/24 18:23
Enoxaparin Sodium 40 Mg/0.4 Ml Syringe SC 10/11/24 17:59 Not Given
QPM RADHA
Glucagon 1 mg 09/13/24 00:05
Glucagon 1 Mg Vial IM 10/11/24 00:04
PRN PRN
hypoglycemia
Protocol
Melatonin 5 mg 09/18/24 20:00 09/21/24 18:17
Melatonin 5 Mg Tablet PO 10/16/24 19:59 5 mg
QPM RADHA Administration
Memantine 10 mg 09/13/24 08:00 09/21/24 20:28
Memantine 10 Mg Tablet PO 10/11/24 07:59 Not Given
BID RADHA
Risperidone 0.5 mg 09/18/24 11:28 09/20/24 22:03
Risperidone 0.25 Mg Tablet PO 10/13/24 16:59 0.5 mg
BIDPRN PRN Administration
agitation
Rivastigmine 4.6 mg 09/13/24 08:00 09/21/24 09:28
Rivastigmine (Exelon) 4.6 Mg Patch TRANSDERM 10/11/24 07:59 4.6 mg
DAILY RADHA Administration
Sertraline HCl 50 mg 09/13/24 08:00 09/21/24 09:28
Sertraline 50 Mg Tablet PO 10/11/24 07:59 50 mg
DAILY RADHA Administration
Sodium Chloride 0 flush 09/12/24 23:00
Sodium Chloride 0.9% (Flush) Syringe IV 10/10/24 22:59
PER PROTOCOL RADHA
Home Medications
-
Home Medications
atorvastatin 10 mg tablet 10 mg PO QPM High cholesterol 12/14/16
calcium 600 mg (as carbonate)-vitamin D3 10 mcg (400 unit) tablet (Calcium 600 + D(3)) 1 ea PO DAILY Supplement 12/14/16
coenzyme Q10 200 mg capsule (Co Q-10) 200 mg PO QPM Supplement 12/14/16
ascorbic acid (vitamin C) 250 mg tablet (Vitamin C) 250 mg PO DAILY Supplement 09/12/24
memantine 10 mg tablet 10 mg PO BID Mental Health/Anxiety 09/12/24
rivastigmine 4.6 mg/24 hour transdermal patch 1 patch transdermal DAILY Mental Health/Anxiety 09/12/24
sertraline 50 mg tablet 50 mg PO DAILY Depression 09/12/24
melatonin 5 mg tablet 5 mg PO QPM #10 tabs 09/18/24
risperidone 0.25 mg tablet 0.5 mg (2 x 0.25 mg) PO BIDPRN PRN agitation #10 tabs 09/18/24
[2024-09-22 08:00] VITALS: BP 121/88
[2024-09-22] MEDS: EXELON PATCH 4.6 MG TRANSDERM (08:40)
[2024-09-22] MEDS: OSCAL 500 + D PO (08:41)
[2024-09-22] MEDS: NAMENDA PO (08:41)
[2024-09-22] MEDS: ZOLOFT PO (08:41)
--- NOTE | 2024-09-22 11:13 | HOSPNOTE ---
Discussed hospice and the philosophy with the daughter Kenyatta. She would like to speak with her Dad and most likely home with hospice. They just need today to make some decisions and get some care in place. More information to follow once decisions
are made.
--- NOTE | 2024-09-22 11:54 | CM ---
Addendum entered by Lizzeth Velez 09/22/24 16:16:
CM met with daughter and spouse bedside, requesting additional referrals to [facility] and [facility]. Spouse does not feel he can bring patient home on hospice, expressed interested in [facility]. CM spoke with admissions at [facility],
will require patient to be off of 1:1 48-72 hrs before acceptance (will confirm). CM discussed with family hospice services covered through insurance, will be private pay for room and board. Spouse reports patient is not typically agitated, prior to
hospital stay patient and were out to dinner with friends. CM offered support to family, will continue to follow for LTC with hospice placement. Family reports they are meeting with hospice tomorrow.
Original Note:
CM reviewed chart, received call from patients daughter, Kenyatta, reports she spoke with Physician and are discussing Hospice. Daughter agreeable to referral to Hospice, reports her father is visiting patient, daughter requesting call from Hospice
if able- TT to [facility] with referral, placed in [facility]. Daughter reports she would like patient to try to return home with hospice services. CM will continue to be available to family, patient, will continue to follow for all discharge planning
needs.
Plan; Hospice referral
--- NOTE | 2024-09-22 11:59 | W.PN.HOSP.TC ---
Today's Communication/Plan
-
Hospice eval
Assessment / Plan
Assessment / Plan
Hospital course: 79-year-old female past medical history of dementia, hyperlipidemia, ambulatory dysfunction, anxiety disorder, osteoporosis who was coming to the hospital being unresponsive by EMS. EMS found patient blood glucose to be 36 and was
given D50. It was suspected patient might have accidentally taken patient 's medication. Patient blood glucose and POC was monitored. Hypoglycemia resolved. Neurology was consulted. Patient underwent MRI of the brain MRI of the brain
with no evidence of acute intracranial abnormality. Mild to moderate diffuse atrophy noted. Small vessel ischemic disease. Neurology was consulted for lower extremity weakness however once patient was more awake seems to be at her baseline.
Patient was by physical and Occupational Therapy. Xanax was discontinued. Lorazepam was discontinued. Patient was started Risperdal and melatonin. Patient was found to be COVID-19 positive. Patient was asymptomatic and did not require
oxygenation. Patient was eval by physical and Occupational Therapy discharged to SNF.
Acute COVID 19 positive- stable on room air.
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 Xanax seems to sedate patient. Will dc it for now. start melatonin Will start patient on Risperdal prn -dose increased. Not in restraints. Repeat CT head on 09/18/24 with no new
changes. Sleep cycle has reversed. d/w with Rn to make sure awake during daytime and provide melatonin if needed at bedtime to fix sleep cycle. Needs assistance with feeding.
Hypoglycemia -unclear etiology. believes she may have accidentally taken his metformin. states that her appetite at home is great, she does not skip any meals.
A.m. cortisol 15, doubt adrenal insufficiency.
Hypoglycemia resolved.
Ambulatory dysfunction -nursing notes that she is weak. states that at home she ambulates without any assistive devices.
Neurology consulted for lower extremity weakness. They raised the concern for potential or possible seizure. Brain MRI ordered. MRI of the brain with no evidence of acute intracranial abnormality. Mild to moderate diffuse atrophy noted. Small
vessel ischemic disease. No seizure like activity noted so far.
Generalized anxiety disorder
Osteoporosis
Hyperlipidemia -atorvastatin.
Underweight
DNR
Hospice consulted
Discussed with patient sister and daughter at bedside in details
Anticipated Discharge: 24 - 48 hours
Subjective/Interval History
-
Date of Service: September 22, 2024
Seen and examined at the bedside. No acute events overnight. AFVSS.
Discussed prognosis with patient's family, they have elected to pursue hospice care. Case management consulted for hospice evaluation
ROS limited by patient's dementia and mental status
Objective Data
-
Vital Signs:
Vital Signs
Temp Pulse Resp BP Pulse Ox
98.3 F 62 16 121/88 98
09/22/24 08:00 09/22/24 08:00 09/22/24 08:00 09/22/24 08:00 09/22/24 08:00
I&O
09/21/24 09/22/24 09/23/24
06:59 06:59 06:59
Intake Total 1140 / 1140 640 / 640
Balance 1140 / 1140 640 / 640
Review of Systems
-
Unable to obtain full review of systems at this time due to: Dementia
Physical Exam
-
General: Well Developed, No Apparent Distress, Appears Chronically Ill and Cachectic
HEENT: Normocephalic, Atraumatic and Moist Mucous Membranes
Respiratory: Clear to Auscultation and Non Labored Respirations
Cardiac: Regular Rhythm and S1/S2; Negative Murmur, Rub or Gallop
GI: Soft, Nontender, Nondistended and Normal Bowel Sounds
Musculoskeletal: No Clubbing, No Cyanosis and No Edema
Skin: Warm and Dry; Negative Rash
Neuro: Nonfocal/Grossly Intact and Other (Sleeping comfortably)
Psych: Calm
[2024-09-22 12:55] VITALS: BP 150/75
[2024-09-22 12:56] VITALS: BP 155/72
[2024-09-22] MEDS: ZOLOFT 50 MG PO (13:14)
[2024-09-22] MEDS: NAMENDA 10 MG PO ×2 (13:15→21:18)
[2024-09-22 16:43] VITALS: BP 134/65
[2024-09-22 17:52] LABS: Creatine Phosphokinase 290 U/L (30-135)
[2024-09-22] MEDS: LOVENOX 40 MG SC (17:52)
[2024-09-22] MEDS: LIPITOR PO (17:57)
[2024-09-22] MEDS: MELATONIN PO (17:58)
[2024-09-22 23:25] VITALS: BP 163/81
[2024-09-23 03:23] LABS: Ammonia < 9 umol/L (9-30)
[2024-09-23 06:00] VITALS: BMI 16.0
[2024-09-23 07:41] VITALS: BP 143/64
[2024-09-23] MEDS: OSCAL 500 + D PO (08:17)
[2024-09-23] MEDS: EXELON PATCH 4.6 MG TRANSDERM (08:17)
--- NOTE | 2024-09-23 11:09 | HOSPNOTE ---
"CM is seeking placement and referrals have been sent. Family is in agreement with hospice and the philosophy but unable to take care of the patient at home. Family's first choice is [facility] with hospice. Will continue to follow, spoke with attending "Fabi"who will order PRN oral Ativan so the 1:1 is discontinued and placement can be made. Will continue to follow. "
--- NOTE | 2024-09-23 11:11 | W.PN.HOSP.TC ---
Today's Communication/Plan
-
Discontinue one-to-one
Oral Ativan as needed
Hospice placement
Assessment / Plan
Assessment / Plan
Hospital course: 79-year-old female past medical history of dementia, hyperlipidemia, ambulatory dysfunction, anxiety disorder, osteoporosis who was coming to the hospital being unresponsive by EMS. EMS found patient blood glucose to be 36 and was
given D50. It was suspected patient might have accidentally taken patient 's medication. Patient blood glucose and POC was monitored. Hypoglycemia resolved. Neurology was consulted. Patient underwent MRI of the brain MRI of the brain
with no evidence of acute intracranial abnormality. Mild to moderate diffuse atrophy noted. Small vessel ischemic disease. Neurology was consulted for lower extremity weakness however once patient was more awake seems to be at her baseline.
Patient was by physical and Occupational Therapy. Xanax was discontinued. Lorazepam was discontinued. Patient was started Risperdal and melatonin. Patient was found to be COVID-19 positive. Patient was asymptomatic and did not require
oxygenation. Patient was eval by physical and Occupational Therapy discharged to SNF.
Acute COVID 19 positive- stable on room air.
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 Xanax seems to sedate patient. Will dc it for now. start melatonin Will start patient on Risperdal prn -dose increased. Not in restraints. Repeat CT head on 09/18/24 with no new
changes. Sleep cycle has reversed. d/w with Rn to make sure awake during daytime and provide melatonin if needed at bedtime to fix sleep cycle. Needs assistance with feeding.
Hypoglycemia -unclear etiology. believes she may have accidentally taken his metformin. states that her appetite at home is great, she does not skip any meals.
A.m. cortisol 15, doubt adrenal insufficiency.
Hypoglycemia resolved.
Ambulatory dysfunction -nursing notes that she is weak. states that at home she ambulates without any assistive devices.
Neurology consulted for lower extremity weakness. They raised the concern for potential or possible seizure. Brain MRI ordered. MRI of the brain with no evidence of acute intracranial abnormality. Mild to moderate diffuse atrophy noted. Small
vessel ischemic disease. No seizure like activity noted so far.
Generalized anxiety disorder
Osteoporosis
Hyperlipidemia -atorvastatin.
Underweight
DNR
Hospice consulted, pending placement to hospice facility
Discussed with patient sister and daughter at bedside in details
Anticipated Discharge: 24 - 48 hours
Subjective/Interval History
-
Date of Service: September 23, 2024
Seen and examined at the bedside. Family in the room and provided with updates. Patient appears comfortable
Objective Data
-
Vital Signs:
Vital Signs
Temp Pulse Resp BP Pulse Ox
97.5 F 61 18 143/64 97
09/23/24 07:41 09/23/24 07:41 09/23/24 07:41 09/23/24 07:41 09/23/24 07:41
I&O
09/22/24 09/23/24 09/24/24
06:59 06:59 06:59
Intake Total 640 / 640
Output Total 200 / 200
Balance 640 / 640 -200 / -200
Review of Systems
-
Unable to obtain full review of systems at this time due to: Dementia
Physical Exam
-
General: Well Developed, No Apparent Distress and Appears Chronically Ill
HEENT: Normocephalic, Atraumatic and Moist Mucous Membranes
Respiratory: Clear to Auscultation and Non Labored Respirations
Cardiac: Regular Rhythm and S1/S2; Negative Murmur, Rub or Gallop
GI: Soft, Nontender, Nondistended and Normal Bowel Sounds
Musculoskeletal: No Clubbing, No Cyanosis and No Edema
Skin: Warm and Dry; Negative Rash
Neuro: Nonfocal/Grossly Intact and Other (Comfortable and sleeping)
Psych: Calm
[2024-09-23] MEDS: ZOLOFT PO (11:58)
[2024-09-23] MEDS: NAMENDA PO (11:58)
--- NOTE | 2024-09-23 12:06 | CM ---
CM reviewed chart, reviewed with Hospitalist/Nurse. 1:1 discontinued. CM spoke with [facility], Hospice, family agreeable to Hospice at facility, family prefers [facility]. CM spoke with admissions at [facility], will confirm if patient needs 48
or 72 hours off 1:1, 48 hours will be , 09/25. CM will continue to update [facility].
Plan; hopeful d/c to [facility] with Hospice
[2024-09-23] MEDS: LOVENOX 30 MG SC (18:18)
[2024-09-23] MEDS: LIPITOR PO (18:21)
[2024-09-23] MEDS: MELATONIN PO (18:21)
[2024-09-23 21:12] LABS: Urine Albumin 1+ (Neg - Trace); Urine Bilirubin Negative (Negative); Urine Character Clear (Clear); Urine Color Yellow; Urine Glucose Negative (Negative); Urine Ketone Negative (Negative); Urine Leukocyte 1+ (Negative); Urine Nitrite Negative (Negative); Urine Occult Blood 4+ (Negative); Urine Specific Gravity 1.025 (<1.030); Urine Urobilinogen Negative (Neg - 1+)
[2024-09-23 21:25] LABS: Urine Bacteria Few (Negative); Urine Red Blood Cell 0-2 /HPF (0-2); Urine White Cell 0-2 /HPF (0-5)
[2024-09-23 22:49] LABS: Glucose - Point of Care 88 mg/dl (70-99)
[2024-09-23 23:24] VITALS: BP 123/74
[2024-09-24 06:00] VITALS: BMI 16.0
[2024-09-24 07:00] VITALS: BP 174/76
[2024-09-24 08:43] LABS: Glucose - Point of Care 81 mg/dl (70-99)
[2024-09-24] MEDS: EXELON PATCH 4.6 MG TRANSDERM (09:37)
[2024-09-24] MEDS: OSCAL 500 + D 500 MG PO (09:37)
[2024-09-24] MEDS: ZOLOFT 50 MG PO (09:38)
--- NOTE | 2024-09-24 10:59 | W.PN.HOSP.TC ---
Today's Communication/Plan
-
Hospice tomorrow
Assessment / Plan
Assessment / Plan
Hospital course: 79-year-old female past medical history of dementia, hyperlipidemia, ambulatory dysfunction, anxiety disorder, osteoporosis who was coming to the hospital being unresponsive by EMS. EMS found patient blood glucose to be 36 and was
given D50. It was suspected patient might have accidentally taken patient 's medication. Patient blood glucose and POC was monitored. Hypoglycemia resolved. Neurology was consulted. Patient underwent MRI of the brain MRI of the brain
with no evidence of acute intracranial abnormality. Mild to moderate diffuse atrophy noted. Small vessel ischemic disease. Neurology was consulted for lower extremity weakness however once patient was more awake seems to be at her baseline.
Patient was by physical and Occupational Therapy. Xanax was discontinued. Lorazepam was discontinued. Patient was started Risperdal and melatonin. Patient was found to be COVID-19 positive. Patient was asymptomatic and did not require
oxygenation. Patient was eval by physical and Occupational Therapy discharged to SNF.
Acute COVID 19 positive- stable on room air.
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 Xanax seems to sedate patient. Will dc it for now. start melatonin Will start patient on Risperdal prn -dose increased. Not in restraints. Repeat CT head on 09/18/24 with no new
changes. Sleep cycle has reversed. d/w with Rn to make sure awake during daytime and provide melatonin if needed at bedtime to fix sleep cycle. Needs assistance with feeding.
Hypoglycemia -unclear etiology. believes she may have accidentally taken his metformin. states that her appetite at home is great, she does not skip any meals.
A.m. cortisol 15, doubt adrenal insufficiency.
Hypoglycemia resolved.
Ambulatory dysfunction -nursing notes that she is weak. states that at home she ambulates without any assistive devices.
Neurology consulted for lower extremity weakness. They raised the concern for potential or possible seizure. Brain MRI ordered. MRI of the brain with no evidence of acute intracranial abnormality. Mild to moderate diffuse atrophy noted. Small
vessel ischemic disease. No seizure like activity noted so far.
Generalized anxiety disorder
Osteoporosis
Hyperlipidemia -atorvastatin.
Underweight/Cachexia
DNR
Hospice consulted, pending placement to hospice facility on
Anticipated Discharge: Within 24 hours
Subjective/Interval History
-
Date of Service: September 24, 2024
Seen and examined at bedside. No acute events reported overnight. AFVSS. Comfortable in the room
Has remained off one-to-one observation for 48 hours. Plan for discharge to hospice facility of 09/25
Objective Data
-
Vital Signs:
Vital Signs
Temp Pulse Resp BP Pulse Ox
97.6 F 70 18 174/76 98
09/24/24 07:00 09/24/24 07:00 09/24/24 07:00 09/24/24 07:00 09/24/24 07:00
I&O
09/23/24 09/24/24 09/25/24
06:59 06:59 06:59
Intake Total 960 / 960
Output Total 200 / 200 200 / 200
Balance -200 / -200 760 / 760
Review of Systems
-
Unable to obtain full review of systems at this time due to: Dementia
Physical Exam
-
General: Well Developed, No Apparent Distress, Appears Chronically Ill and Cachectic
HEENT: Normocephalic, Atraumatic and Moist Mucous Membranes
Respiratory: Clear to Auscultation and Non Labored Respirations
Cardiac: Regular Rhythm and S1/S2; Negative Murmur
GI: Soft, Nontender, Nondistended and Normal Bowel Sounds
Musculoskeletal: No Clubbing, No Cyanosis and No Edema
Skin: Warm and Dry; Negative Rash
Neuro: Nonfocal/Grossly Intact and Other (Sleeping comfortably)
Psych: Calm
[2024-09-24 15:00] VITALS: BP 131/74
--- NOTE | 2024-09-24 15:18 | CM ---
CM reviewed chart, spoke with patients daughter regarding discharge planning. [facility] vs 72 hrs off 1:1. will be 48 hrs off 1:1. Hospice following. [facility] CM will continue to follow for all discharge planning needs.
Plan; hopeful d/c to [facility] tomorrow with Hospice
[2024-09-24] MEDS: LIPITOR 10 MG PO (17:30)
[2024-09-24] MEDS: MELATONIN 5 MG PO (17:30)
[2024-09-24 22:09] LABS: Glucose - Point of Care 123 mg/dl (70-99)
[2024-09-24 22:52] VITALS: BP 118/54
[2024-09-25 06:03] VITALS: BMI 16.0
[2024-09-25 06:55] LABS: Glucose - Point of Care 105 mg/dl (70-99)
[2024-09-25 07:29] VITALS: BP 142/68
[2024-09-25 07:43] VITALS: BP 138/60; BP 142/68; PULSE 58; PULSE 60
[2024-09-25] MEDS: EXELON PATCH 4.6 MG TRANSDERM (08:13)
[2024-09-25] MEDS: ZOLOFT 50 MG PO (08:13)
[2024-09-25] MEDS: OSCAL 500 + D 500 MG PO (08:13)
--- NOTE | 2024-09-25 09:40 | W.PN.HOSP.TC ---
Today's Communication/Plan
-
Discharge to hospice facility
Assessment / Plan
Assessment / Plan
Hospital course: 79-year-old female past medical history of dementia, hyperlipidemia, ambulatory dysfunction, anxiety disorder, osteoporosis who was coming to the hospital being unresponsive by EMS. EMS found patient blood glucose to be 36 and was
given D50. It was suspected patient might have accidentally taken patient 's medication. Patient blood glucose and POC was monitored. Hypoglycemia resolved. Neurology was consulted. Patient underwent MRI of the brain MRI of the brain
with no evidence of acute intracranial abnormality. Mild to moderate diffuse atrophy noted. Small vessel ischemic disease. Neurology was consulted for lower extremity weakness however once patient was more awake seems to be at her baseline.
Patient was by physical and Occupational Therapy. Xanax was discontinued. Lorazepam was discontinued. Patient was started Risperdal and melatonin. Patient was found to be COVID-19 positive. Patient was asymptomatic and did not require
oxygenation. Patient was eval by physical and Occupational Therapy discharged to SNF.
Acute COVID 19 positive- stable on room air.
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 Xanax seems to sedate patient. Will dc it for now. start melatonin Will start patient on Risperdal prn -dose increased. Not in restraints. Repeat CT head on 09/18/24 with no new
changes. Sleep cycle has reversed. d/w with Rn to make sure awake during daytime and provide melatonin if needed at bedtime to fix sleep cycle. Needs assistance with feeding.
Hypoglycemia -unclear etiology. believes she may have accidentally taken his metformin. states that her appetite at home is great, she does not skip any meals.
A.m. cortisol 15, doubt adrenal insufficiency.
Hypoglycemia resolved.
Ambulatory dysfunction -nursing notes that she is weak. states that at home she ambulates without any assistive devices.
Neurology consulted for lower extremity weakness. They raised the concern for potential or possible seizure. Brain MRI ordered. MRI of the brain with no evidence of acute intracranial abnormality. Mild to moderate diffuse atrophy noted. Small
vessel ischemic disease. No seizure like activity noted so far.
Generalized anxiety disorder
Osteoporosis
Hyperlipidemia -atorvastatin.
Underweight/Cachexia
DNR
Hospice consulted, pending placement to hospice facility on
Anticipated Discharge: Today
Subjective/Interval History
-
Date of Service: September 25, 2024
Seen and examined at bedside. No acute events overnight. AFVSS this morning. Patient comfortable in the room, more awake today
Objective Data
-
Vital Signs:
Vital Signs
Temp Pulse Resp BP Pulse Ox
98.3 F 58 18 142/68 95
09/25/24 07:29 09/25/24 07:29 09/25/24 07:29 09/25/24 07:29 09/25/24 07:29
I&O
09/24/24 09/25/24 09/26/24
06:59 06:59 06:59
Intake Total 960 / 960 720 / 720
Output Total 200 / 200
Balance 760 / 760 720 / 720
Review of Systems
-
Unable to obtain full review of systems at this time due to: Dementia
Physical Exam
-
General: Well Developed, Comfortable, Appears Chronically Ill and Cachectic
HEENT: Normocephalic, Atraumatic and Moist Mucous Membranes
Respiratory: Clear to Auscultation and Non Labored Respirations
Cardiac: Regular Rhythm and S1/S2; Negative Murmur, Rub or Gallop
GI: Soft, Nontender, Nondistended and Normal Bowel Sounds
Musculoskeletal: No Clubbing, No Cyanosis and No Edema
Skin: Warm and Dry; Negative Rash
Neuro: Awake, Alert and Nonfocal/Grossly Intact
Psych: Calm
[2024-09-25 11:19] LABS: Glucose - Point of Care 118 mg/dl (70-99)
--- NOTE | 2024-09-25 12:29 | W.DCSUMMARY ---
Discharge Summary
Discharge Data
Date of Admission: 09/12/24
Date of Discharge: 09/25/24
Total time spent discharging patient (in min): 31
-
Pending Results: No
Hospital Course
79-year-old female with dementia complicated by behavioral disturbances, seizures, orthostasis, osteoporosis, HLD, cachexia that presented to the hospital with hypoglycemia and failure to thrive. Found to be COVID-positive though no hypoxemia.
Goals of care discussions were had with family who decided to pursue hospice care. Hospice was arranged and patient was transferred to [facility] on 09/25/2024 for hospice care.
Discharge Plan
-
Patient Disposition: Home with Hospice
Discharge Diagnosis/Procedures: Hypoglycemia
Ambulatory dysfunction
Progressive dementia with behavioral disturbances
Acute COVID-19 infection
Condition: Fair
Diet: As tolerated
Activity: With assistance and As tolerated
Driving Restrictions: No driving
Referrals:
Javier Frederick CRNP [Family Provider] -
Additional Discharge Medication Instructions: Hydrochlorothiazide and alprazolam was discontinued
Can initiate Ativan and morphine as needed for comfort measures
Prescriptions:
New
melatonin 5 mg Tablet
5 mg PO QPM Qty: 10 0RF
risperidone 0.25 mg Tablet
0.5 mg PO BIDPRN PRN (Reason: agitation) Qty: 10 0RF
Continued
atorvastatin 10 MG tablet
10 mg PO QPM
coenzyme Q10 [Co Q-10] 200 MG capsule
200 mg PO QPM
calcium carbonate-vitamin D3 [Calcium 600 + D(3)] 1 EACH tablet
1 ea PO DAILY
ascorbic acid (vitamin C) [Vitamin C] 250 mg Tablet
250 mg PO DAILY
sertraline 50 mg Tablet
50 mg PO DAILY
memantine 10 mg Tablet
10 mg PO BID
rivastigmine 4.6 mg/24 hour Patch 24 Hour
1 patch TRANSDERMAL DAILY
Discontinued
alprazolam 0.25 mg Tablet
0.25 mg PO BID
Patient Comments:
09/12/24: Family states this is taken routinely, but last PDMP fill was on 10/11/23 for 60 tabs over 30 days.
ibuprofen [Advil] 200 mg Tablet
200 mg PO Q6HPRN PRN (Reason: mild pain)
hydrochlorothiazide 12.5 mg Tablet
12.5 mg PO DAILY
Discharge Orders:
Discharge Patient (As Directed); Ordered 09/25/24
Ordered By: Booker Michael
Discharge Date and Time
Print Language: ARMENIAN
--- NOTE | 2024-09-25 15:01 | CM ---
CM reviewed chart, spoke with Nery in admissions at [facility], family met with Nery today. Per Nery, unable to accept patient, do not have any beds until next week, reports patient would need to be in their Dementia unit. Nery Facetimed with
patient today and do not feel they can accomodate accepting patient. CM discussed the plan has been for patient to discharge to [facility] with Hospice, was not aware family is now interested in rehab, was told patient could likely come to
facility today.
Per family, now interested in having patient go to rehab rather than hospice, but would like to keep hospice as second choice if patient unable to participate in rehab. CM discussed patient will need an authorization to be approved for rehab, if
patient is unable to follow commands/participate in therapy, will not be able to go to SNF, would either be a discharge to facility with hospice, discharge to LTC facility with no hospice if family decided they did not want hospice, or home with
hospice/caregivers. CM spoke with patients daughter separately, report [facility] and [facility] are too expensive, requesting referrals sent to [place]- will send to [facility], [facility]. TT to Hospitalist,
patient will need new PT/OT orders. TT to Hospice with update, daughter requesting call from Hospice. CM will continue to follow for all discharge planning needs.
Plan; family now preferring rehab, will need to see if patient can work with therapy for auth and accepting facility.
--- NOTE | 2024-09-25 15:23 | HOSPNOTE ---
The daughter called me stating they were not sure what the decision will be about hospice. The family is contemplating rehab or hospice. I encouraged family to make a decision and CM will put out more referrals to other facilities. We will follow
until a decision is made.
[2024-09-25 15:53] VITALS: BP 140/62
[2024-09-25 16:09] LABS: Glucose - Point of Care 100 mg/dl (70-99)
[2024-09-25] MEDS: LIPITOR 10 MG PO (17:16)
[2024-09-25] MEDS: MELATONIN 5 MG PO (17:16)
[2024-09-25 21:39] LABS: Glucose - Point of Care 97 mg/dl (70-99)
[2024-09-25 23:12] VITALS: BP 148/66
[2024-09-26 05:33] VITALS: BMI 16.3
[2024-09-26 06:33] VITALS: BMI 16.3
[2024-09-26] MEDS: EXELON PATCH 4.6 MG TRANSDERM (07:29)
[2024-09-26] MEDS: ZOLOFT 50 MG PO (07:29)
[2024-09-26] MEDS: OSCAL 500 + D 500 MG PO (07:29)
[2024-09-26 07:43] VITALS: BP 126/57
[2024-09-26 08:03] LABS: Glucose - Point of Care 90 mg/dl (70-99)
[2024-09-26 08:44] VITALS: BP 153/73; PULSE 64; O2SAT 97
[2024-09-26 08:45] VITALS: BP 153/73; PULSE 65
[2024-09-26 12:09] LABS: Glucose - Point of Care 108 mg/dl (70-99)
--- NOTE | 2024-09-26 12:20 | CM ---
CM reviewed chart, per PT/OT recommendations, recommending SNF, patient was able to participate in session. Patient seen bedside with and family visiting, discussed PT/OT recommendation and spouse reports he would like to speak to his
daughter before sending additional referrals for short term rehab. CM will continue to follow for all discharge planning needs.
Plan; family to make decision regarding SNF versus hospice, if SNF, will need to try to auth approval.
--- NOTE | 2024-09-26 12:44 | W.PN.HOSP.TC ---
Today's Communication/Plan
-
Placement
Assessment / Plan
Assessment / Plan
Hospital course: 79-year-old female past medical history of dementia, hyperlipidemia, ambulatory dysfunction, anxiety disorder, osteoporosis who was coming to the hospital being unresponsive by EMS. EMS found patient blood glucose to be 36 and was
given D50. It was suspected patient might have accidentally taken patient 's medication. Patient blood glucose and POC was monitored. Hypoglycemia resolved. Neurology was consulted. Patient underwent MRI of the brain MRI of the brain
with no evidence of acute intracranial abnormality. Mild to moderate diffuse atrophy noted. Small vessel ischemic disease. Neurology was consulted for lower extremity weakness however once patient was more awake seems to be at her baseline.
Patient was by physical and Occupational Therapy. Xanax was discontinued. Lorazepam was discontinued. Patient was started Risperdal and melatonin. Patient was found to be COVID-19 positive. Patient was asymptomatic and did not require
oxygenation. Patient was eval by physical and Occupational Therapy discharged to SNF.
Acute COVID 19 positive- stable on room air.
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 Xanax seems to sedate patient. Will dc it for now. start melatonin Will start patient on Risperdal prn -dose increased. Not in restraints. Repeat CT head on 09/18/24 with no new
changes. Sleep cycle has reversed. d/w with Rn to make sure awake during daytime and provide melatonin if needed at bedtime to fix sleep cycle. Needs assistance with feeding.
Hypoglycemia -unclear etiology. believes she may have accidentally taken his metformin. states that her appetite at home is great, she does not skip any meals.
A.m. cortisol 15, doubt adrenal insufficiency.
Hypoglycemia resolved.
Ambulatory dysfunction -nursing notes that she is weak. states that at home she ambulates without any assistive devices.
Neurology consulted for lower extremity weakness. They raised the concern for potential or possible seizure. Brain MRI ordered. MRI of the brain with no evidence of acute intracranial abnormality. Mild to moderate diffuse atrophy noted. Small
vessel ischemic disease. No seizure like activity noted so far.
Generalized anxiety disorder
Osteoporosis
Hyperlipidemia -atorvastatin.
Underweight/Cachexia
DNR
Patient completed 72 hours off of one-to-one for hospice however family has decided to pursue SNF placement instead. PT/OT reconsulted. Otherwise medically stable for discharge
Anticipated Discharge: 24 - 48 hours
Subjective/Interval History
-
Date of Service: September 26, 2024
Seen and examined at the bedside. No acute events reported overnight. AFVSS this morning
Patient family decided to pursue short-term rehab yesterday just prior to being transferred to hospice
ROS limited by dementia
Objective Data
-
Vital Signs:
Vital Signs
Temp Pulse Resp BP Pulse Ox
97.5 F 60 16 126/57 99
09/26/24 07:43 09/26/24 07:43 09/26/24 07:43 09/26/24 07:43 09/26/24 07:43
I&O
09/25/24 09/26/24 09/27/24
06:59 06:59 06:59
Intake Total 720 / 720 840 / 840
Balance 720 / 720 840 / 840
Review of Systems
-
Unable to obtain full review of systems at this time due to: Dementia
Physical Exam
-
General: Well Developed, No Apparent Distress, Appears Chronically Ill and Cachectic
HEENT: Normocephalic, Atraumatic, Moist Mucous Membranes and Anicteric
Respiratory: Clear to Auscultation and Non Labored Respirations
Cardiac: Regular Rhythm and S1/S2; Negative Murmur, Rub or Gallop
GI: Soft, Nontender, Nondistended and Normal Bowel Sounds
Musculoskeletal: No Clubbing, No Cyanosis and No Edema
Skin: Warm, Dry and Normal Turgor; Negative Rash
Neuro: AO x 3 and Nonfocal/Grossly Intact
Psych: Calm
[2024-09-26] MEDS: TYLENOL 650 MG PO (13:01)
[2024-09-26 14:51] VITALS: BP 109/70
[2024-09-26 16:39] LABS: Glucose - Point of Care 101 mg/dl (70-99)
[2024-09-26] MEDS: MELATONIN 5 MG PO (17:52)
[2024-09-26] MEDS: LIPITOR 10 MG PO (17:52)
[2024-09-26 22:00] VITALS: BP 123/50
[2024-09-26 22:32] LABS: Glucose - Point of Care 89 mg/dl (70-99)
[2024-09-27 05:00] VITALS: BMI 16.4
[2024-09-27 07:58] VITALS: BP 126/55
[2024-09-27 08:10] LABS: Glucose - Point of Care 82 mg/dl (70-99)
[2024-09-27] MEDS: ZOLOFT 50 MG PO (08:22)
[2024-09-27] MEDS: OSCAL 500 + D 500 MG PO (08:22)
[2024-09-27] MEDS: EXELON PATCH 4.6 MG TRANSDERM (08:27)
--- NOTE | 2024-09-27 10:13 | CM ---
Addendum entered by Ainsley Vargas 09/27/24 14:48:
Family refuses to permit discharge without being permitted to tour [facility]; Attending notified
Addendum entered by Ainsley Vargas 09/27/24 12:10:
AICHA spoke with daughter, Kenyatta # [phone]; she is going to tour [facility], they have a bed available pending AUTH approval
Original Note:
CM met with patient and her sister at bedside; sister will speak with and let CM know if he is agreeable to his going to a SNF pending bed availability and AUTH approval
--- NOTE | 2024-09-27 11:48 | W.PN.HOSP.TC ---
Today's Communication/Plan
-
SNF placement
Assessment / Plan
Assessment / Plan
Hospital course: 79-year-old female past medical history of dementia, hyperlipidemia, ambulatory dysfunction, anxiety disorder, osteoporosis who was coming to the hospital being unresponsive by EMS. EMS found patient blood glucose to be 36 and was
given D50. It was suspected patient might have accidentally taken patient 's medication. Patient blood glucose and POC was monitored. Hypoglycemia resolved. Neurology was consulted. Patient underwent MRI of the brain MRI of the brain
with no evidence of acute intracranial abnormality. Mild to moderate diffuse atrophy noted. Small vessel ischemic disease. Neurology was consulted for lower extremity weakness however once patient was more awake seems to be at her baseline.
Patient was by physical and Occupational Therapy. Xanax was discontinued. Lorazepam was discontinued. Patient was started Risperdal and melatonin. Patient was found to be COVID-19 positive. Patient was asymptomatic and did not require
oxygenation. Patient was eval by physical and Occupational Therapy discharged to SNF.
Acute COVID 19 positive- stable on room air.
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 Xanax seems to sedate patient. Will dc it for now. start melatonin Will start patient on Risperdal prn -dose increased. Not in restraints. Repeat CT head on 09/18/24 with no new
changes. Sleep cycle has reversed. d/w with Rn to make sure awake during daytime and provide melatonin if needed at bedtime to fix sleep cycle. Needs assistance with feeding.
Hypoglycemia -unclear etiology. believes she may have accidentally taken his metformin. states that her appetite at home is great, she does not skip any meals.
A.m. cortisol 15, doubt adrenal insufficiency.
Hypoglycemia resolved.
Ambulatory dysfunction -nursing notes that she is weak. states that at home she ambulates without any assistive devices.
Neurology consulted for lower extremity weakness. They raised the concern for potential or possible seizure. Brain MRI ordered. MRI of the brain with no evidence of acute intracranial abnormality. Mild to moderate diffuse atrophy noted. Small
vessel ischemic disease. No seizure like activity noted so far.
Generalized anxiety disorder
Osteoporosis
Hyperlipidemia -atorvastatin.
Underweight/Cachexia
DNR
Patient completed 72 hours off of one-to-one for hospice however family has decided to pursue SNF placement instead. PT/OT reconsulted. Otherwise medically stable for discharge to SNF
Anticipated Discharge: 24 - 48 hours
Subjective/Interval History
-
Date of Service: September 27, 2024
Seen and examined at the bedside. No acute events overnight. AFVSS this morning
Spoke with her sister at the bedside. Raises concerns about possibility of her getting out of bed and following
ROS limited by advanced dementia
Objective Data
-
Vital Signs:
Vital Signs
Temp Pulse Resp BP Pulse Ox
97.4 F 70 18 126/55 95
09/27/24 07:58 09/27/24 07:58 09/27/24 07:58 09/27/24 07:58 09/27/24 07:58
I&O
09/26/24 09/27/24 09/28/24
06:59 06:59 06:59
Intake Total 840 / 840 480 / 480
Balance 840 / 840 480 / 480
Review of Systems
-
Unable to obtain full review of systems at this time due to: Dementia
Physical Exam
-
General: Well Developed, Comfortable, Appears Chronically Ill and Cachectic
HEENT: Normocephalic, Atraumatic and Moist Mucous Membranes
Respiratory: Clear to Auscultation and Non Labored Respirations
Cardiac: Regular Rhythm and S1/S2; Negative Murmur, Rub or Gallop
GI: Soft, Nontender, Nondistended and Normal Bowel Sounds
Musculoskeletal: No Clubbing, No Cyanosis and No Edema
Skin: Warm, Dry and Normal Turgor; Negative Rash
Neuro: Awake and Nonfocal/Grossly Intact; Negative Tremors
Psych: Calm
[2024-09-27 12:12] LABS: Glucose - Point of Care 119 mg/dl (70-99)
[2024-09-27 15:47] VITALS: BP 122/62
[2024-09-27 17:09] LABS: Glucose - Point of Care 97 mg/dl (70-99)
[2024-09-27] MEDS: MELATONIN 5 MG PO (17:21)
[2024-09-27] MEDS: LIPITOR 10 MG PO (17:21)
[2024-09-27 22:39] LABS: Glucose - Point of Care 81 mg/dl (70-99)
[2024-09-27 22:45] VITALS: BP 138/70
[2024-09-28 05:40] VITALS: BMI 16.0
[2024-09-28 07:00] VITALS: BP 161/72
[2024-09-28] MEDS: EXELON PATCH 4.6 MG TRANSDERM (08:06)
[2024-09-28] MEDS: OSCAL 500 + D 500 MG PO (08:06)
[2024-09-28] MEDS: ZOLOFT 50 MG PO (08:06)
[2024-09-28 08:59] LABS: Glucose - Point of Care 103 mg/dl (70-99)
--- NOTE | 2024-09-28 10:33 | W.PN.HOSP.TC ---
Today's Communication/Plan
-
Discharge planning
Assessment / Plan
Assessment / Plan
Hospital course: 79-year-old female past medical history of dementia, hyperlipidemia, ambulatory dysfunction, anxiety disorder, osteoporosis who was coming to the hospital being unresponsive by EMS. EMS found patient blood glucose to be 36 and was
given D50. It was suspected patient might have accidentally taken patient 's medication. Patient blood glucose and POC was monitored. Hypoglycemia resolved. Neurology was consulted. Patient underwent MRI of the brain MRI of the brain
with no evidence of acute intracranial abnormality. Mild to moderate diffuse atrophy noted. Small vessel ischemic disease. Neurology was consulted for lower extremity weakness however once patient was more awake seems to be at her baseline.
Patient was by physical and Occupational Therapy. Xanax was discontinued. Lorazepam was discontinued. Patient was started Risperdal and melatonin. Patient was found to be COVID-19 positive. Patient was asymptomatic and did not require
oxygenation. Patient was eval by physical and Occupational Therapy discharged to SNF.
Acute COVID 19 positive- stable on room air.
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 Xanax seems to sedate patient. Will dc it for now. start melatonin Will start patient on Risperdal prn -dose increased. Not in restraints. Repeat CT head on 09/18/24 with no new
changes. Sleep cycle has reversed. d/w with Rn to make sure awake during daytime and provide melatonin if needed at bedtime to fix sleep cycle. Needs assistance with feeding.
Hypoglycemia -unclear etiology. believes she may have accidentally taken his metformin. states that her appetite at home is great, she does not skip any meals.
A.m. cortisol 15, doubt adrenal insufficiency.
Hypoglycemia resolved.
Ambulatory dysfunction -nursing notes that she is weak. states that at home she ambulates without any assistive devices.
Neurology consulted for lower extremity weakness. They raised the concern for potential or possible seizure. Brain MRI ordered. MRI of the brain with no evidence of acute intracranial abnormality. Mild to moderate diffuse atrophy noted. Small
vessel ischemic disease. No seizure like activity noted so far.
Generalized anxiety disorder
Osteoporosis
Hyperlipidemia -atorvastatin.
Underweight/Cachexia
DNR
Disposition: Medically stable for discharge to SNF when family makes selection
Anticipated Discharge: Within 24 hours
Subjective/Interval History
-
Date of Service: September 28, 2024
Seen and examined at the bedside. No acute events overnight. AFVSS
No recurrence of hypoglycemia reported
ROS limited by advanced dementia
Objective Data
-
Vital Signs:
Vital Signs
Temp Pulse Resp BP Pulse Ox
98.4 F 73 20 161/72 98
09/28/24 07:00 09/28/24 07:00 09/28/24 07:00 09/28/24 07:00 09/28/24 07:00
I&O
09/27/24 09/28/24 09/29/24
06:59 06:59 06:59
Intake Total 480 / 480 960 / 960
Balance 480 / 480 960 / 960
Review of Systems
-
Unable to obtain full review of systems at this time due to: Dementia
Physical Exam
-
General: Well Developed, Comfortable, Appears Chronically Ill and Cachectic
HEENT: Normocephalic, Atraumatic and Moist Mucous Membranes
Respiratory: Clear to Auscultation and Non Labored Respirations
Cardiac: Regular Rhythm and S1/S2; Negative Murmur, Rub or Gallop
GI: Soft, Nontender, Nondistended and Normal Bowel Sounds
Musculoskeletal: No Clubbing, No Cyanosis and No Edema
Skin: Warm, Dry and Normal Turgor; Negative Rash
Neuro: Awake, Alert and Nonfocal/Grossly Intact
Psych: Calm
[2024-09-28 12:33] LABS: Glucose - Point of Care 103 mg/dl (70-99)
[2024-09-28 14:21] VITALS: BP 119/54
[2024-09-28 16:26] LABS: Glucose - Point of Care 97 mg/dl (70-99)
[2024-09-28] MEDS: MELATONIN 5 MG PO (17:46)
[2024-09-28] MEDS: LIPITOR 10 MG PO (17:46)
[2024-09-28 23:00] VITALS: BP 105/60
[2024-09-29 06:00] VITALS: BMI 16.0
[2024-09-29 07:24] VITALS: BP 158/80
[2024-09-29 08:00] LABS: Glucose - Point of Care 84 mg/dl (70-99)
[2024-09-29] MEDS: ZOLOFT 50 MG PO (08:27)
[2024-09-29] MEDS: OSCAL 500 + D 500 MG PO (08:27)
[2024-09-29] MEDS: EXELON PATCH 4.6 MG TRANSDERM (08:27)
[2024-09-29 11:39] LABS: Glucose - Point of Care 135 mg/dl (70-99)
--- NOTE | 2024-09-29 12:02 | CM ---
Addendum entered by Lizzeth Velez 09/29/24 16:37:
CM spoke with patients daughter, Kenyatta, agreeable to discharge to [facility]. CM spoke with Renee from [facility], auth approved 09/29-10/03, auth #[id number], for updates call [phone]. IMM verbally reviewed with daughter, Kenyatta, does not wish to
appeal, placed in chart. Patient and spouse, Cj, seen bedside, aware discharge scheduled today for 5:30 p.m. ambulance transport. Liaison at [facility] aware, aware family would like to potentially transfer to [facility] or [facility] if bed
opens up.
Plan; discharge to [facility] SNF, 5:30 p.m. ambulance transport
[facility]
Report: [phone]

Original Note:
CM reviewed chart, patient seen bedside with spouse, Cj. Spouse requesting rehab referral to [facility]]. CM spoke with [facility]], will need to review financial application which can take up to 72 hrs, spouse aware that unfortunately patient can
not remain in hospital while awaiting decision as patient may be declined. CM discussed additional referrals to be sent, spouse would like to stay in the [place] area, agreeable to referral to [facility] rehab which is in [place].
Spouse aware that discharge order is placed and need to find a facility for patient. Call to liaison at [facility], will find out if any beds available at [facility] for rehab/potential LTC transition. Spouse has shared that after rehab they are
undecided on the next steps for patient. [facility] liaison will review if there are any beds for snf/ltc at [facility]. CM will update Hospitalist, will continue to follow for all discharge planning needs.
Plan; SNF, will require auth, family undecided on transition to LTC or home after rehab
--- NOTE | 2024-09-29 13:13 | W.PN.HOSP.TC ---
Addendum entered and electronically signed by Anthony Acevedo MD 09/30/24 08:49:
More than 30 minutes spent in discharge including
Final examination of the patient
Summarizing hospital stay
Instructions for continuing care to all relevant caregivers
Preparation of discharge records, prescriptions, and referral forms
Total time spent (in minutes): 42
Original Note:
Today's Communication/Plan
-
await placement
Assessment / Plan
Assessment / Plan
Hospital course: 79-year-old female past medical history of dementia, hyperlipidemia, ambulatory dysfunction, anxiety disorder, osteoporosis who was coming to the hospital being unresponsive by EMS. EMS found patient blood glucose to be 36 and was
given D50. It was suspected patient might have accidentally taken patient 's medication. Patient blood glucose and POC was monitored. Hypoglycemia resolved. Neurology was consulted. Patient underwent MRI of the brain MRI of the brain
with no evidence of acute intracranial abnormality. Mild to moderate diffuse atrophy noted. Small vessel ischemic disease. Neurology was consulted for lower extremity weakness however once patient was more awake seems to be at her baseline.
Patient was by physical and Occupational Therapy. Xanax was discontinued. Lorazepam was discontinued. Patient was started Risperdal and melatonin. Patient was found to be COVID-19 positive. Patient was asymptomatic and did not require
oxygenation. Patient was eval by physical and Occupational Therapy discharged to SNF.
Acute COVID 19 positive- stable on room air.
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 Xanax seems to sedate patient. Will dc it for now. start melatonin Will start patient on Risperdal prn -dose increased. Not in restraints. Repeat CT head on 09/18/24 with no new
changes. Sleep cycle has reversed. d/w with Rn to make sure awake during daytime and provide melatonin if needed at bedtime to fix sleep cycle. Needs assistance with feeding.
Hypoglycemia -unclear etiology. believes she may have accidentally taken his metformin. states that her appetite at home is great, she does not skip any meals.
A.m. cortisol 15, doubt adrenal insufficiency.
Hypoglycemia resolved.
Ambulatory dysfunction -nursing notes that she is weak. states that at home she ambulates without any assistive devices.
Neurology consulted for lower extremity weakness. They raised the concern for potential or possible seizure. Brain MRI ordered. MRI of the brain with no evidence of acute intracranial abnormality. Mild to moderate diffuse atrophy noted. Small
vessel ischemic disease. No seizure like activity noted so far.
Generalized anxiety disorder
Osteoporosis
Hyperlipidemia -atorvastatin.
Underweight/Cachexia
DNR
Discussed with spouse at bedside in detail
Prognosis guarded.
Disposition: Medically stable for discharge to SNF. Case management aware.
Anticipated Discharge: Today
Subjective/Interval History
-
Date of Service: September 29, 2024
Awake
Seems in good spirits
at bedside
Objective Data
-
Vital Signs:
Vital Signs
Temp Pulse Resp BP Pulse Ox
98.6 F 84 18 158/80 97
09/29/24 07:24 09/29/24 07:24 09/29/24 07:24 09/29/24 07:24 09/29/24 07:24
I&O
09/28/24 09/29/24 09/30/24
06:59 06:59 06:59
Intake Total 960 / 960 240 / 240
Balance 960 / 960 240 / 240
Physical Exam
-
General: Well Developed, Comfortable, Appears Chronically Ill and Cachectic
HEENT: Normocephalic, Atraumatic and Moist Mucous Membranes
Respiratory: Clear to Auscultation and Non Labored Respirations
Cardiac: Regular Rhythm and S1/S2; Negative Murmur, Rub or Gallop
GI: Soft, Nontender, Nondistended and Normal Bowel Sounds
Musculoskeletal: No Clubbing, No Cyanosis and No Edema
Skin: Warm, Dry and Normal Turgor; Negative Rash
Neuro: Awake, Alert and Nonfocal/Grossly Intact
Psych: Calm and Apparent Dementia
[2024-09-29 15:00] VITALS: BP 124/87
[2024-09-29 16:48] LABS: Glucose - Point of Care 108 mg/dl (70-99)
--- NOTE | 2024-09-29 17:20 | PTCARENOTE ---
report given to nurse Putnam at [facility]
--- NOTE | 2024-09-30 08:48 | W.DCSUMMARY ---
Discharge Summary
Discharge Data
Date of Admission: 09/12/24
Date of Discharge: 09/29/24
-
Pending Results: No
Hospital Course
79-year-old female with dementia complicated by behavioral disturbances, seizures, orthostasis, osteoporosis, HLD, cachexia that presented to the hospital with hypoglycemia and failure to thrive. Found to be COVID-positive though no hypoxemia.
Goals of care discussions were had with family who decided to pursue hospice care however later refused. Patient's sleep cycle was off and was started on melatonin. Patient was taken off of benzodiazepine. Patient appetite improved. Patient mood
stabilized. Family decided to pursue rehabitation and patient will be [facility]..
Discharge Plan
-
Patient Disposition: Halfway/SNF
Discharge Diagnosis/Procedures: Hypoglycemia
Ambulatory dysfunction
Progressive dementia with behavioral disturbances
Acute COVID-19 infection
Condition: Fair
Diet: As tolerated
Activity: With assistance and As tolerated
Driving Restrictions: No driving
Referrals:
Javier Frederick CRNP [Family Provider] - in less than 1 week
Additional Discharge Medication Instructions: Hydrochlorothiazide and alprazolam was discontinued
Prescriptions:
New
melatonin 5 mg Tablet
5 mg PO QPM Qty: 10 0RF
risperidone 0.25 mg Tablet
0.5 mg PO BIDPRN PRN (Reason: agitation) Qty: 10 0RF
Continued
atorvastatin 10 MG tablet
10 mg PO QPM
coenzyme Q10 [Co Q-10] 200 MG capsule
200 mg PO QPM
calcium carbonate-vitamin D3 [Calcium 600 + D(3)] 1 EACH tablet
1 ea PO DAILY
ascorbic acid (vitamin C) [Vitamin C] 250 mg Tablet
250 mg PO DAILY
sertraline 50 mg Tablet
50 mg PO DAILY
memantine 10 mg Tablet
10 mg PO BID
rivastigmine 4.6 mg/24 hour Patch 24 Hour
1 patch TRANSDERMAL DAILY
Discontinued
alprazolam 0.25 mg Tablet
0.25 mg PO BID
Patient Comments:
09/12/24: Family states this is taken routinely, but last PDMP fill was on 10/11/23 for 60 tabs over 30 days.
ibuprofen [Advil] 200 mg Tablet
200 mg PO Q6HPRN PRN (Reason: mild pain)
hydrochlorothiazide 12.5 mg Tablet
12.5 mg PO DAILY
Discharge Orders:
Discharge Patient (As Directed); Ordered 09/29/24
Ordered By: Anthony Acevedo
Discharge Date and Time
Discharge Date/Time: 09/29/24 17:53
Print Language: INDIAN
== END 2024-09-29 17:53 | DRG 56 ==
LOC: 4 WEST ACU 20:21
PROVIDERS: Clinical Nurse Specialist Family Health; Nurse Practitioner Family; ADMITTING PHYSICIAN Internal Medicine; ATTENDING PHYSICIAN Hospitalist; CONSULT PHYSICIAN Psychiatry & Neurology Neurology; EMERGENCY PHYSICIAN Emergency Medicine; FAMILY PHYSICIAN Nurse Practitioner Adult Health
DX: G30.9 Alzheimer's disease, unspecified (principal); U07.1 COVID-19; F02.818 Dementia in other diseases classified elsewhere, unspecified severity, with other behavioral disturbance; E44.0 Moderate protein-calorie malnutrition; Z68.1 Body mass index [BMI] 19.9 or less, adult; M81.0 Age-related osteoporosis without current pathological fracture; R56.9 Unspecified convulsions; R62.7 Adult failure to thrive; E78.00 Pure hypercholesterolemia, unspecified; E16.2 Hypoglycemia, unspecified; R26.2 Difficulty in walking, not elsewhere classified; Z66 Do not resuscitate; Z60.8 Other problems related to social environment; Z79.899 Other long term (current) drug therapy
CPT/HCPCS: 51701; 70450; 70551; 80048; 80053; 81003; 81015; 82140; 82533; 82550; 82962; 83036; 84443; 85025; 85027; 87086; 87502; 87811; 93005; 96374; 97116; 97163; 97164; 97167; 97530; 97535; 99285

== ENCOUNTER → 2024-11-27 12:00 | Outpatient (REF) | payer OTHER, SELFPAY ==
[2024-11-27 16:57] LABS: Urine Albumin 2+ (Neg - Trace); Urine Bilirubin Negative (Negative); Urine Character Clear (Clear); Urine Color Yellow; Urine Glucose Negative (Negative); Urine Ketone Negative (Negative); Urine Leukocyte 1+ (Negative); Urine Nitrite Negative (Negative); Urine Occult Blood 4+ (Negative); Urine Specific Gravity 1.015 (<1.030); Urine Urobilinogen Negative (Neg - 1+)
[2024-11-27 17:34] LABS: Urine Calcium Oxalate Crystals Present; Urine Mucus Few; Urine Squamous Cell 16-20 /LPF (Few); Urine Urothelial Cell 0-2 /LPF (FEW)
[2024-11-27 17:35] LABS: Urine Bacteria Few (Negative)
== END ==
LOC: OLABBH 12:00
PROVIDERS: ATTENDING PHYSICIAN Family Medicine
DX: N39.0 Urinary tract infection, site not specified (principal)
CPT/HCPCS: 81003; 81015; 87086

== ENCOUNTER 2024-12-01 09:58 | Emergency (ER) | payer OTHER, SELFPAY ==
[2024-12-01] VITALS (8 sets, daily range): BP systolic 141–167; BP diastolic 63–91; BMI 18.1
[2024-12-01 11:02] LABS: % Basophils 0.1 % (0-2); % Immature Granulocytes 0.4 % (0-0.5); % Lymphocytes 12.1 % (20.5-51.1); % Monocytes 8.1 % (1.7-9.3); % Neutrophils 79.3 % (42.2-75.2); Absolute Lymphocytes 1.2 10^3/uL (1.2-3.4); Absolute Monocytes 0.8 10^3/uL (0.1-0.6); Hematocrit 35.2 % (37.0-47.0); Hemoglobin 12.2 g/dL (12.0-16.0); Mean Corp Hgb Conc. 34.7 g/dL (33.0-37.0); Mean Corpuscular Hgb 30.3 pg (27.0-31.0); Mean Corpuscular Volume 87.3 fL (81.0-99.0); Mean Platelet Volume 11.3 fL (7.4-10.4); Nucleated Red Blood Cells % 0 %; Platelet Count 205 10^3/uL (130-400); Red Blood Cell Count 4.03 10^6/uL (4.20-5.40); Red Cell Dist. Width 13.1 % (11.5-14.5)
[2024-12-01 11:05] LABS: Urine Albumin 2+ (Neg - Trace); Urine Bilirubin Negative (Negative); Urine Character Slightly Cloudy (Clear); Urine Color Yellow; Urine Glucose Negative (Negative); Urine Ketone 1+ (Negative); Urine Leukocyte 2+ (Negative); Urine Nitrite Negative (Negative); Urine Occult Blood 4+ (Negative); Urine Specific Gravity 1.025 (<1.030); Urine Urobilinogen Negative (Neg - 1+)
[2024-12-01 11:20] LABS: COVID-19 Antigen Negative (Negative)
[2024-12-01 11:35] LABS: Urine Mucus Moderate
[2024-12-01 11:36] LABS: Urine Amorphous Seen
[2024-12-01 11:38] LABS: Urine Red Blood Cell 16-20 /HPF (0-2)
[2024-12-01 11:40] LABS: Urine Bacteria Few (Negative)
[2024-12-01] MEDS: NSS 500 IV (11:57)
[2024-12-01 12:50] LABS: Blood Urea Nitrogen 28 mg/dl (7-17); Carbon Dioxide 22 mmol/L (22-30); Chloride 108 mmol/L (98-107); Estimated Creatinine Clearance 56 ml/min; Glucose 101 mg/dl (70-99); Sodium 139 mmol/L (135-145); eGFR > 60.00
[2024-12-01 12:51] LABS: Calcium 9.5 mg/dl (8.4-10.2)
[2024-12-01 13:03] LABS: Lactic Acid 1.1 mmol/L (0.7-2.0)
--- NOTE | 2024-12-01 14:38 | ED.GENMED ---
History of Present Illness
General
Chief Complaint: Fever
Source: spouse
Exam Limitations: dementia
Time Seen by Provider: 12/01/24 10:52
History of Present Illness
History of Present Illness:
Note:
CHIEF COMPLAINT(S)
Altered mental status and increased somnolence.
HISTORY OF PRESENT ILLNESS
The patient is an 79-year-old female residing in a memory care unit, presenting with a four-day history of increased somnolence, reported by her spouse. During this period, she has been sleeping almost continuously, with decreased energy levels. The
spouse reports a fever of 99.3�F, but there has been no vomiting. The patient has no prior history of urinary tract infections, though there is suspicion of a current urinary tract infection (UTI), with prior testing done last week and treatment
delays. She receives three meals a day but may not be consuming adequate fluids. Current vital signs include blood pressure at 147/66 mmHg and a heart rate of 78 beats per minute. Plans include obtaining laboratory results and administering IV
fluids due to inadequate oral fluid intake.
ADDITIONAL HISTORY OBTAINED FROM SOURCES OTHER THAN THE PATIENT
According to the spouse, the patient has been more lethargic than usual, possibly related to a suspected UTI.
PHYSICAL EXAM
- General: Weak and alert, though confused. Does not follow commands well. Somewhat cachectic.
- Abdomen: Soft, non-tender, no distension.
- Cardiovascular: Regular heart rhythm, no murmurs.
- Pulmonary: Clear lung sounds.
- Neurological: No apparent focal motor deficits, but the patient does not follow commands for a thorough neurologic assessment. Nonverbal
PLAN
Plans include reviewing the patient�s laboratory results and urine analysis, initiating IV fluids due to inadequate fluid intake, and considering antibiotics for suspected urinary tract infection treatment.
DIFFERENTIAL DIAGNOSIS
The Differential Diagnosis includes, in no particular order and is not limited to:
1. Urinary tract infection
2. Delirium
3. Dehydration
4. Pneumonia
5. Electrolyte imbalance
6. Cerebral vascular accident
7. Dementia exacerbation
8. Medication side effect
9. Hypoglycemia
10. Sepsis
Disposition:
SUMMARY OF ENCOUNTER
The patient, an 79-year-old female with a history of dementia residing in a memory care unit, presented with an altered mental status characterized by increased somnolence over four days. Evaluation revealed suspicion of a urinary tract infection.
She is otherwise hemodynamically stable, with baseline systemic findings. Considerations of the patients altered mental state prompted urine analysis, which suggested a UTI, leading to the decision to administer antibiotics.
DISPOSITION
The patient is deemed suitable for discharge back to her care facility, with her able to monitor her closely.
ASSESSMENT
Potential urinary tract infection contributing to altered mental status in the setting of dementia and possible transient delirium or dehydration.
PLAN
Initiate antibiotic treatment with a one-time dose of fosfomycin given the patients dementia and ease of administration. Send urine culture for confirmation and discharge the patient with close monitoring at her care facility by her .
INDEPENDENT REVIEW OF LABS AND INTERPRETATION OF TESTS
My independent review of the urinalysis shows the presence of white blood cells, red cells, and 2+ leukocyte esterase, indicating a possible urinary tract infection. This information, combined with the clinical presentation, supports the decision to
administer antibiotics.
MEDICAL DECISION MAKING
1. Number & Complexity of Problems: Chronic conditions affecting care: dementia. Differential diagnoses include urinary tract infection, delirium, dehydration, and possible medication side effects.
2. Data Reviewed: Category 1: Urine analysis was ordered and interpreted, showing signs compatible with a UTI. Category 2: External historian - provided additional history crucial for decision-making. Old records, including prior blood and
urine cultures and a discharge summary from a hypoglycemic episode in September 2024, were reviewed.
PATHOLOGIES TO CONSIDER
Sepsis, given the altered mental status and evidence of infection, though less likely due to hemodynamic stability and lack of further systemic infection signs.
Past History
Past History
ED Past Medical History: Hypercholesterolemia, Psychiatric (generalized anxiety disorder) and Other (osteoporosis, COVID-19 in May 2021, mild cognitive impairment 2020)
ED Past Surgical History: Other (cataract extraction 2003)
Social History
Tobacco: Non-smoker
Alcohol: None
Drug: None
Personal:
Living: with family
Family History
Family History: Other (reviewed and noncontributory)
Phy Exam
Physical Exam
Physical Exam:
.
Sepsis
Sepsis Screening
Sepsis Assessment: Sepsis Ruled Out
Sepsis Screen
Sepsis Screen: Sepsis Ruled Out
Date: 12/01/24
Time: 16:01
Course
Orders/Labs/Results
Orders:
Orders
12/01/24 10:36
Electrocardiogram (*1) Urgent
Reason for Study: Other
Other Reason for Exam: Possible Sepsis
Cardiac Monitoring- Treatment ONCE
EKG- Treatment ONCE
IV Insert/Care/Rem.- Treatment PRN
Straight cath- Treatment ONCE
Pulse Ox/cont/shift [RESP] Urgent
Quantity: 1
Special Instructions: CONTINUOUS
12/01/24 10:42
Basic Metabolic Panel Urgent
Complete Blood Count/With Diff Urgent
Lactic Acid Q4H
Comment: ON ICE, CANCEL 2ND ORDER IF FIRST LACTIC ACID LEVEL <2
Urinalysis Reflex To Culture Urgent
Date Specimen was Collected: 12/01/24
Time Specimen was Collected: 10:36
Urine Microscopic Reflex Cult Urgent
Blood Culture Q20M
SRINATH Source: Blood/Venous
Specimen Description:
Comment: Urgent from separate sites. If patient screens positive for possible sepsis
Urine Culture Urgent
SRINATH Source: U
Specimen Description:
Date Specimen was Collected: 12/01/24
Time Specimen was Collected: 10:36
12/01/24 10:46
COVID-19 Antigen Urgent
Source: Nasal Swab
Influenza A+B Rapid Molecular Urgent
SRINATH Source: Nasal Swab
Specimen Description:
12/01/24 10:47
Blood Culture Q20M
SRINATH Source: Blood/Venous
Specimen Description:
Comment: Urgent from separate sites. If patient screens positive for possible sepsis
12/01/24 11:48
0.9% Sodium Chloride 500 ml [Nss] 500 ml IV BOLUS
12/01/24 13:02
CR Chest - 2 Views Urgent
Comment:
Reason For Exam: fever
12/01/24 14:36
Fosfomycin [Monurol] 3 gm PO ONCE ONE
Abnormal Lab Results
12/01/24
10:42
RBC 4.03 L 10^6/uL
(4.20-5.40)
Hct 35.2 L %
(37.0-47.0)
MPV 11.3 H fL
(7.4-10.4)
Absolute Neuts (auto) 8.0 H 10^3/uL
(1.4-6.5)
Absolute Monos (auto) 0.8 H 10^3/uL
(0.1-0.6)
Neutrophils % 79.3 H %
(42.2-75.2)
Lymphocytes % 12.1 L %
(20.5-51.1)
Chloride 108 H mmol/L
(98-107)
BUN 28 H mg/dl
(7-17)
Glucose 101 H mg/dl
(70-99)
Urine Ketones 1+ A
(Negative)
Ur Occult Blood Reflex 4+ A
(Negative)
Leukocyte Esterase Rfl 2+ A
(Negative)
Urine RBC 16-20 A /HPF
(0-2)
Urine WBC (Reflex) 11-15 A /HPF
(0-5)
Urine Bacteria (Reflex) Few A
(Negative)
Urine Albumin (Reflex) 2+ A
(Neg - Trace)
12/01/24 10:42
12/01/24 10:42
Vital Signs
Initial and Last Documented VS:
Initial Vital Signs
Temp Pulse Resp BP Pulse Ox
99.6 F 66 15 144/68 97
12/01/24 10:10 12/01/24 10:10 12/01/24 10:10 12/01/24 10:10 12/01/24 10:10
Last Documented Vital Signs
Temp Pulse Resp BP Pulse Ox
99.6 F 65 15 167/64 97
12/01/24 10:10 12/01/24 14:30 12/01/24 14:30 12/01/24 14:14 12/01/24 14:40
*Radiology
Radiology exam reviewed: all reviewed NAD by ED Provider
*Pulse Oximetry
SaO2: 97
Oxygen Mode of Delivery: Room air
Patient hypoxic: no
*Critical Care Note
Total Time (30-74mins, 75-104mins- exclusive of procedures): Not Applicable
ED Attending Note
-
Portions of this chart may have been created with voice recognition software.� Occasional wrong word or��sound alike� substitutions may have occurred due to the inherent limitations of voice recognition software.
Discharge Plan
Departure
Patient Disposition: Home (Routine Discharge)
Date of Disposition: 12/01/24
Time of Disposition: 14:39
Patient with high blood pressure during this ER visit?: Yes
Discharge Problem:
Dementia, Urinary tract infection, Acute alteration in mental status
Instructions: Urinary tract infections in adults, Fosfomycin
Prescriptions:
No Action
atorvastatin 10 MG tablet
10 mg PO QPM
coenzyme Q10 [Co Q-10] 200 MG capsule
200 mg PO QPM
calcium carbonate-vitamin D3 [Calcium 600 + D(3)] 1 EACH tablet
1 ea PO DAILY
ascorbic acid (vitamin C) [Vitamin C] 250 mg Tablet
250 mg PO DAILY
sertraline 50 mg Tablet
50 mg PO DAILY
memantine 10 mg Tablet
10 mg PO BID
rivastigmine 4.6 mg/24 hour Patch 24 Hour
1 patch TRANSDERMAL DAILY
melatonin 5 mg Tablet
5 mg PO QPM Qty: 10 0RF
acetaminophen 325 mg Tablet
650 mg PO Q6H PRN (Reason: pain/fever)
magnesium hydroxide [Milk of Magnesia] 400 mg/5 mL Suspension
30 ml PO DAILY PRN (Reason: constipation)
bisacodyl 10 mg Suppository
10 mg [facility] DAILY PRN (Reason: constipation)
risperidone 0.5 mg Tablet
0.5 mg PO BID
risperidone 0.25 mg tablet
0.5 mg PO BID
Referrals:
Sundar Mantilla MD [Family Provider, Family Practice]
Activity Restrictions/Additional Instructions:
You were given fosfomycin 1 dose for urinary tract infection. Occasionally a repeat dose has to be given in 1 week if any symptoms persist. Please have your doctor repeat your urinalysis in the next 1 week to ensure it has cleared. Return
immediately for fevers, vomiting, changes in mentation, lethargy, shortness of breath or any other concerns.
Interventions
Interventions:
*Risk Screen - Suicide Last Done: 12/01/24 10:10
*General Assessment Last Done: 12/01/24 10:10
*Neglect/Abuse Screening Last Done: 12/01/24 10:10
*ED- Fall Risk Assessment Last Done: 12/01/24 10:32
*ED COVID-19 Vaccine History Last Done: 12/01/24 10:10
ED- Neurological Assessment Last Done: 12/01/24 10:32
ED-Skin Assessment Last Done: 12/01/24 10:32
Discharge Date and Time
Print Language: SLOVAK
[2024-12-01] MEDS: MONUROL 3 GM PO (14:59)
--- NOTE | 2024-12-01 17:13 | EDRN ---
Report given to Annmarie at [facility]. Instructions reviewed with patient's and Annmarie at [facility].
== END 2024-12-01 17:15 | disposition home or self-care (01) ==
LOC: EMR 09:58
PROVIDERS: EMERGENCY PHYSICIAN Emergency Medicine; FAMILY PHYSICIAN Family Medicine
DX: R50.9 Fever, unspecified (principal); F03.90 Unspecified dementia, unspecified severity, without behavioral disturbance, psychotic disturbance, mood disturbance, and anxiety; E78.00 Pure hypercholesterolemia, unspecified; M81.0 Age-related osteoporosis without current pathological fracture; N39.0 Urinary tract infection, site not specified; Z86.16 Personal history of COVID-19
CPT/HCPCS: 99283; 96360; 71046; 80048; 81003; 81015; 83605; 85025; 87040; 87086; 87502; 87811; 93005

== ENCOUNTER 2024-12-07 02:45 | Inpatient (IN) | payer OTHER, SELFPAY ==
[2024-12-06 21:52] VITALS: BP 167/75
[2024-12-06 21:55] VITALS: BP 167/75
[2024-12-06 22:00] VITALS: BP 171/80
[2024-12-06 22:04] LABS: Hematocrit 34.9 % (37.0-47.0); Hemoglobin 11.9 g/dL (12.0-16.0); Mean Corp Hgb Conc. 34.1 g/dL (33.0-37.0); Mean Corpuscular Volume 87.7 fL (81.0-99.0); Nucleated Red Blood Cells % 0 %; Platelet Count 197 10^3/uL (130-400); Red Cell Dist. Width 12.8 % (11.5-14.5)
--- NOTE | 2024-12-06 22:18 | ED.GENMED ---
History of Present Illness
<TORSTEN Salgado - Last Filed: 12/07/24 13:13>
General
Chief Complaint: Weakness
Source: family
Exam Limitations: none
Time Seen by Provider: 12/06/24 22:11
Nursing documentation reviewed up to this point in time: agreed with
History of Present Illness
History of Present Illness:
79-year-old female presents to the ER for evaluation. Patient is from [facility] and as document has not been responding to staff for the past several hours. Has not reports patient was treated for UTI Sunday however has had
decreased p.o. and has been more lethargic. at bedside, pt is not opening eyes to voice but will moan at times to 's voice.
Past History
<TORSTEN Salgado - Last Filed: 12/07/24 13:13>
Past History
ED Past Medical History: Hypercholesterolemia, Psychiatric (generalized anxiety disorder) and Other (osteoporosis, COVID-19 in May 2021, mild cognitive impairment 2020)
ED Past Surgical History: Other (cataract extraction 2003)
Social History
Tobacco: Non-smoker
Alcohol: None
Drug: None
Personal:
Living: with family
Family History
Family History: Other (reviewed and noncontributory)
Review of Systems
<TORSTEN Salgado - Last Filed: 12/07/24 13:13>
Review of Systems
Allergies reviewed?: Yes
Unable to obtain full review of systems at this time due to: dementia
Other source history: family
Phy Exam
<TORSTEN Salgado - Last Filed: 12/07/24 13:13>
General Physical Exam
General Presentation: no apparent distress
General age: appears stated age
General Skin: warm and dry
General Habitus: elderly
General Mental: alert
General Hydration: dry mucous membranes
General Chronic Disability: demented
Cardiovascular Exam
Cardiovascular Exam: regular rate/rhythm, no murmur and normal peripheral pulses
Pulmonary Exam
Pulmonary Exam: lungs clear and no respiratory distress
Neurological Exam
Neurological Exam: other (sleeping )
Musculoskeletal Exam
Musculoskeletal Exam: full ROM
Skin Exam
Skin Exam: normal color and warm/dry
Psychiatric Exam
Psychiatric Exam: other (pt sleeping on exam )
Sepsis
<TORSTEN Salgado - Last Filed: 12/07/24 13:13>
Sepsis Screening
Sepsis Assessment: Sepsis Ruled Out
Sepsis Screen
Sepsis Screen: Sepsis Ruled Out
Date: 12/07/24
Time: 13:13
Course
<TORSTEN Salgado - Last Filed: 12/07/24 13:13>
Orders/Labs/Results
Orders:
Orders
12/06/24 21:52
Electrocardiogram (*1) Urgent
Reason for Study: Other
Other Reason for Exam: Possible Sepsis
Cardiac Monitoring- Treatment ONCE
IV Insert/Care/Rem.- Treatment PRN
Straight cath- Treatment ONCE
O2 Therapy [RESP] Urgent
Titrate/Wean O2 to maintain O2 sat greater than (%): 93
Special Instructions: TO MAINTAIN CONTINUOUS O2 SATS > OR = 93%
Pulse Ox/cont/shift [RESP] Urgent
Quantity: 1
Special Instructions: CONTINUOUS
12/06/24 21:53
EKG- Treatment ONCE
12/06/24 21:56
Complete Blood Count/With Diff Urgent
Lactic Acid Q4H
Comment: ON ICE, CANCEL 2ND ORDER IF FIRST LACTIC ACID LEVEL <2
Urinalysis Reflex To Culture Urgent
Date Specimen was Collected: 12/06/24
Time Specimen was Collected: 21:53
Urine Microscopic Reflex Cult Urgent
Blood Culture Q20M
SRINATH Source: Blood/Venous
Specimen Description:
Comment: Urgent from separate sites. If patient screens positive for possible sepsis
Urine Culture Urgent
SRINATH Source: U
Specimen Description:
Date Specimen was Collected: 12/06/24
Time Specimen was Collected: 21:53
12/06/24 22:21
Comprehensive Metabolic Panel Urgent
Blood Culture Q20M
SRINATH Source: Blood/Venous
Specimen Description:
Comment: Urgent from separate sites. If patient screens positive for possible sepsis
12/06/24 23:40
0.9% Sodium Chloride 500 ml [Nss] 500 ml IV BOLUS
Acetaminophen 1000MG/100Ml [Ofirmev] 1,000 mg in 100 ml IV ONCE
Acetaminophen IV Indication:: ED Narcotic Naive Pt-ONCE
12/06/24 23:46
COVID-19 Antigen Urgent
Source: Nasal Swab
Influenza A+B Rapid Molecular Urgent
SRINATH Source: Nasal Swab
Specimen Description:
12/07/24 00:02
CT Head W/o Iv Contrast Urgent
Reason For Exam: change in ms
12/07/24 01:03
Piperacillin/Tazo 3.375 Gram [Zosyn] 3.375 gram in 50 ml IV NOW
12/07/24 02:00
Flush (0.9% Sodium Chloride) [Flush (Nss)] See Dose Instructions IV PER PROTOCOL
12/07/24 02:30
Admit/Transfer Patient As Directed
Co-Sign Provider:
Level of Care: Inpatient admission
Assign to:: Medical/Surgical
Physician / Group: Maksim
Diagnosis: Pneumonia
Reason for Hospitalization: Pneumonia
Expected length of stay greater than two midnights?: Yes
ELOS- Estimated Length of Stay in days: 3
I certify the patient meets the requirements for IP care: Yes
12/07/24 02:32
PRN Pain Medication Management As Directed
May give lesser potent ordered pain med per pt: Yes
preference::
Protocol:: Medication orders for pain may be administered in a
manner that supports deferring to patient preference
when the pt is:
- Requesting an ordered lesser potent pain medication.
Least to most potent pain medications are defined
as: acetaminophen < NSAID < tramadol < opioids
(morphine, oxycodone, hydromorphone).
- Requesting a lesser dose of the same medication IF
ORDERED.
- Requesting a less intrusive route of administration
if both routes are prescribed by the provider (PO <
IV).
12/07/24 02:33
Code Status As Directed
Resuscitation Status: Do not resuscitate
Reached after discussion with pt or family/Healthcare POA: Yes
DNR Bracelet Application ONCE
12/07/24 03:58
0.9% Sodium Chloride 1000 ml [Nss] 1,000 ml IV 80 mls/hr
Acetaminophen [Tylenol] 650 mg PO Q4HPRN PRN
Albuterol Nebs [Ventolin Nebules] 2.5 mg INH R Q4HPRN PRN
Risperidone [Risperdal] 0.5 mg PO BID PRN Agitation Agitation
12/07/24 03:58
Activity As Directed
Activity Level: Ambulate
With Assistance
I/O [Intake/ Output] As Directed
Frequency: Per unit guidelines
Pneumatic Compression Sleeves As Directed
Type: Knee high
Precautions As Directed
Type of Precautions: Aspiration
Vital Signs As Directed
Frequency: Per unit guidelines
Oxygen Therapy [O2 Therapy] [RESP] Routine
Titrate/Wean O2 to maintain O2 sat greater than (%): 94
Speech Therapy Eval & Treat Routine
DX Deep Vein Thrombosis Video Routine
12/07/24 Breakfast
NPO
Allow oral meds: Yes
Allow clear liquids: Sips of Clears
12/07/24 06:11
Basic Metabolic Panel IN AM
Complete Blood Count/No Diff IN AM
12/07/24 08:00
Piperacillin/Tazo 3.375 Gram [Zosyn] 3.375 gram in 50 ml IV Q6H
12/07/24 18:00
Atorvastatin [Lipitor] 10 mg PO QPM
12/07/24 23:39
CR Chest - 2 Views Urgent
Reason For Exam: fever
Abnormal Lab Results
12/06/24 12/06/24
21:56 22:21
RBC 3.98 L 10^6/uL
(4.20-5.40)
Hgb 11.9 L g/dL
(12.0-16.0)
Hct 34.9 L %
(37.0-47.0)
MPV 10.7 H fL
(7.4-10.4)
Absolute Neuts (auto) 6.7 H 10^3/uL
(1.4-6.5)
Absolute Monos (auto) 0.9 H 10^3/uL
(0.1-0.6)
Chloride 111 H mmol/L
(98-107)
BUN 20 H mg/dl
(7-17)
Glucose 110 H mg/dl
(70-99)
Albumin 3.4 L g/dl
(3.5-5.0)
Ur Occult Blood Reflex 4+ A
(Negative)
Urine RBC 7-10 A /HPF
(0-2)
Urine Bacteria (Reflex) Moderate A
(Negative)
Urine Albumin (Reflex) 1+ A
(Neg - Trace)
12/06/24 21:56
12/06/24 22:21
Vital Signs
Initial and Last Documented VS:
Initial Vital Signs
BP
167/75
12/06/24 21:52
Last Documented Vital Signs
Temp Pulse Resp BP Pulse Ox
97.9 F 59 15 159/69 98
12/07/24 07:00 12/07/24 07:00 12/07/24 07:00 12/07/24 07:00 12/07/24 07:00
Supervisor Prop Making consulted with Physician
Supervisor Prop Making consulted with physician?: Yes (Richard )
<Agnes Ramos, DO - Last Filed: 12/07/24 01:06>
Orders/Labs/Results
Orders:
Orders
12/06/24 21:52
Electrocardiogram (*1) Urgent
Reason for Study: Other
Other Reason for Exam: Possible Sepsis
Cardiac Monitoring- Treatment ONCE
IV Insert/Care/Rem.- Treatment PRN
Straight cath- Treatment ONCE
O2 Therapy [RESP] Urgent
Titrate/Wean O2 to maintain O2 sat greater than (%): 93
Special Instructions: TO MAINTAIN CONTINUOUS O2 SATS > OR = 93%
Pulse Ox/cont/shift [RESP] Urgent
Quantity: 1
Special Instructions: CONTINUOUS
12/06/24 21:53
EKG- Treatment ONCE
12/06/24 21:56
Complete Blood Count/With Diff Urgent
Lactic Acid Q4H
Comment: ON ICE, CANCEL 2ND ORDER IF FIRST LACTIC ACID LEVEL <2
Urinalysis Reflex To Culture Urgent
Date Specimen was Collected: 12/06/24
Time Specimen was Collected: 21:53
Urine Microscopic Reflex Cult Urgent
Blood Culture Q20M
SRINATH Source: Blood/Venous
Specimen Description:
Comment: Urgent from separate sites. If patient screens positive for possible sepsis
Urine Culture Urgent
SRINATH Source: U
Specimen Description:
Date Specimen was Collected: 12/06/24
Time Specimen was Collected: 21:53
12/06/24 22:21
Comprehensive Metabolic Panel Urgent
Blood Culture Q20M
SRINATH Source: Blood/Venous
Specimen Description:
Comment: Urgent from separate sites. If patient screens positive for possible sepsis
12/06/24 23:40
0.9% Sodium Chloride 500 ml [Nss] 500 ml IV BOLUS
Acetaminophen 1000MG/100Ml [Ofirmev] 1,000 mg in 100 ml IV ONCE
Acetaminophen IV Indication:: ED Narcotic Naive Pt-ONCE
12/06/24 23:46
COVID-19 Antigen Urgent
Source: Nasal Swab
Influenza A+B Rapid Molecular Urgent
SRINATH Source: Nasal Swab
Specimen Description:
12/07/24 00:02
CT Head W/o Iv Contrast Urgent
Reason For Exam: change in ms
12/07/24 01:03
Piperacillin/Tazo 3.375 Gram [Zosyn] 3.375 gram in 50 ml IV NOW
12/07/24 02:00
Flush (0.9% Sodium Chloride) [Flush (Nss)] See Dose Instructions IV PER PROTOCOL
12/07/24 02:30
Admit/Transfer Patient As Directed
Co-Sign Provider:
Level of Care: Inpatient admission
Assign to:: Medical/Surgical
Physician / Group: Maksim
Diagnosis: Pneumonia
Reason for Hospitalization: Pneumonia
Expected length of stay greater than two midnights?: Yes
ELOS- Estimated Length of Stay in days: 3
I certify the patient meets the requirements for IP care: Yes
12/07/24 02:32
PRN Pain Medication Management As Directed
May give lesser potent ordered pain med per pt: Yes
preference::
Protocol:: Medication orders for pain may be administered in a
manner that supports deferring to patient preference
when the pt is:
- Requesting an ordered lesser potent pain medication.
Least to most potent pain medications are defined
as: acetaminophen < NSAID < tramadol < opioids
(morphine, oxycodone, hydromorphone).
- Requesting a lesser dose of the same medication IF
ORDERED.
- Requesting a less intrusive route of administration
if both routes are prescribed by the provider (PO <
IV).
12/07/24 02:33
Code Status As Directed
Resuscitation Status: Do not resuscitate
Reached after discussion with pt or family/Healthcare POA: Yes
DNR Bracelet Application ONCE
12/07/24 03:58
0.9% Sodium Chloride 1000 ml [Nss] 1,000 ml IV 80 mls/hr
Acetaminophen [Tylenol] 650 mg PO Q4HPRN PRN
Albuterol Nebs [Ventolin Nebules] 2.5 mg INH R Q4HPRN PRN
Risperidone [Risperdal] 0.5 mg PO BID PRN Agitation Agitation
12/07/24 03:58
Activity As Directed
Activity Level: Ambulate
With Assistance
I/O [Intake/ Output] As Directed
Frequency: Per unit guidelines
Pneumatic Compression Sleeves As Directed
Type: Knee high
Precautions As Directed
Type of Precautions: Aspiration
Vital Signs As Directed
Frequency: Per unit guidelines
Oxygen Therapy [O2 Therapy] [RESP] Routine
Titrate/Wean O2 to maintain O2 sat greater than (%): 94
Speech Therapy Eval & Treat Routine
DX Deep Vein Thrombosis Video Routine
12/07/24 Breakfast
NPO
Allow oral meds: Yes
Allow clear liquids: Sips of Clears
12/07/24 06:11
Basic Metabolic Panel IN AM
Complete Blood Count/No Diff IN AM
12/07/24 08:00
Piperacillin/Tazo 3.375 Gram [Zosyn] 3.375 gram in 50 ml IV Q6H
12/07/24 18:00
Atorvastatin [Lipitor] 10 mg PO QPM
12/07/24 23:39
CR Chest - 2 Views Urgent
Reason For Exam: fever
Abnormal Lab Results
12/06/24 12/06/24
21:56 22:21
RBC 3.98 L 10^6/uL
(4.20-5.40)
Hgb 11.9 L g/dL
(12.0-16.0)
Hct 34.9 L %
(37.0-47.0)
MPV 10.7 H fL
(7.4-10.4)
Absolute Neuts (auto) 6.7 H 10^3/uL
(1.4-6.5)
Absolute Monos (auto) 0.9 H 10^3/uL
(0.1-0.6)
Chloride 111 H mmol/L
(98-107)
BUN 20 H mg/dl
(7-17)
Glucose 110 H mg/dl
(70-99)
Albumin 3.4 L g/dl
(3.5-5.0)
Ur Occult Blood Reflex 4+ A
(Negative)
Urine RBC 7-10 A /HPF
(0-2)
Urine Bacteria (Reflex) Moderate A
(Negative)
Urine Albumin (Reflex) 1+ A
(Neg - Trace)
12/06/24 21:56
12/06/24 22:21
Vital Signs
Initial and Last Documented VS:
Initial Vital Signs
BP
167/75
12/06/24 21:52
Last Documented Vital Signs
Temp Pulse Resp BP Pulse Ox
97.9 F 59 15 159/69 98
12/07/24 07:00 12/07/24 07:00 12/07/24 07:00 12/07/24 07:00 12/07/24 07:00
<TORSTEN Salgado - Last Filed: 12/07/24 13:13>
MDM/Problems Addressed
MDM/Problems Addressed:
As documented patient is an 79-year-old female from [facility] facility sent for evaluation of lethargy. Patient was recently treated for UTI however recently has been lethargic and not responding as normal. at bedside patient is
definitely not acting completely herself. She does have dementia. She presents sleepy moans in response to her 's name however not really opening eyes or following commands for me. She presented with a low-grade temperature white count
normal lactic acid normal with a negative urine . COVID and flu are negative
Will check chest xray.
Care of patient at this time signed out to DR Ramos, chest pending
<TORSTEN Salgado - Last Filed: 12/07/24 13:13>
*Radiology
Radiology exam reviewed: preliminary read by ED provider
*Pulse Oximetry
SaO2: 95
Oxygen Mode of Delivery: Room air
Patient hypoxic: no
*Critical Care Note
Total Time (30-74mins, 75-104mins- exclusive of procedures): Not Applicable
Data Reviewed
Review of Other/Old Records Reveals: Labs, Radiology Studies and Other (previous ED chart from 12/01 )
Source: significant other
ED Attending Note
<TORSTEN Salgado - Last Filed: 12/07/24 13:13>
-
Portions of this chart may have been created with voice recognition software.� Occasional wrong word or��sound alike� substitutions may have occurred due to the inherent limitations of voice recognition software.
<Agnes Ramos DO - Last Filed: 12/07/24 01:06>
ED Attending Note
Patient seen and examined by attending physician: Yes
I performed the substantive portion of visit, reviewed & personally made and approve the management plan that is documented in note by myself or LILI.: Yes
ED Attending Note:
79-year-old woman with history of advanced dementia complicated by behavioral disturbances, history of seizures, orthostasis, osteoporosis, hyperlipidemia cachexia. She was hospitalized September of this year for hypoglycemia, failure to thrive and
found to be COVID-positive at that time. Near 2-week hospitalization at that time with medication adjustments due to significant lethargy, mood instability and poor appetite. Hospice care pursued however family later refused. She was transferred
to memory care unit where she remains.
More recently over the past week she has had significant decline in mentation, significant lethargy, poor oral intake with onset of low-grade fever over the past week.
Evaluated in this ED December 01 for similar lethargy, low-grade fever. Given a one-time dose of Monurol for potential UTI.
Urine culture and blood cultures x 2 returned negative from December 01. Urine culture November 27 was also negative.
She has not had a cough nor shortness of breath. No reported diarrhea nor vomiting. She remains significantly lethargic, poor oral intake.
Noted to have low-grade fever. Otherwise hemodynamically stable.
79-year-old woman, thin and somewhat cachectic appearing. Moderately lethargic.
No respiratory distress but lungs with mildly decreased breath sounds and few crackles right base otherwise clear to auscultation.
Thus far labs are unremarkable. Normal white blood cell count.
Chemistries reveal mild prerenal azotemia, normal glucose at 110. Normal lactic acid. Mildly low albumin at 3.4. Has trended down from September.
Urinalysis is unremarkable.
COVID and flu testing are negative.
CT of the head, reviewed by myself shows moderate atrophy but no acute findings and appears similar and unchanged from CT of the head in September. Awaiting official report.
Chest x-ray shows a new effusion posteriorly as well as mild groundglass infiltrate in the right base that is all new compared to previous chest x-ray December 01.
Concern for right lower lobe pneumonia, healthcare associated versus aspiration in nature.
Low-grade fever could certainly be viral in nature as well.
Significant lethargy likely related to febrile illness and I suspect exacerbated by advanced dementia.
Discussed options for care with .
Will admit to hospitalist service, continue IV fluids, antipyretics and will initiate IV antibiotics for pneumonia.
Discharge Plan
Departure
Patient Disposition: Admit
Date of Disposition: 12/07/24
Time of Disposition: 01:03
Admit to: Med/Surg
Admit to doctor: Maksim
Presentation/result/management discussed w/ accepting MD/DO: Hospitalist
Condition: Fair
Covid-19: Negative COVID-19
Discharge Problem:
RLL pneumonia, Cachexia, Toxic encephalopathy
Interventions
Interventions:
*Risk Screen - Suicide Last Done: 12/07/24 04:05
*General Assessment Last Done: 12/06/24 21:55
*Neglect/Abuse Screening Last Done: 12/06/24 21:55
*ED- Fall Risk Assessment Last Done: 12/06/24 21:55
*ED COVID-19 Vaccine History Last Done: 12/07/24 04:05
*Nursing Disposition Last Done: 12/07/24 03:35
ED- Cardiac Assessment Last Done: 12/06/24 22:05
ED- Neurological Assessment Last Done: 12/06/24 22:05
ED- Pulmonary Assessment Last Done: 12/06/24 22:05
Discharge Date and Time
Discharge Date/Time: 12/07/24 03:35
[2024-12-06 22:34] LABS: Urine Character Clear (Clear)
[2024-12-06 22:40] LABS: Urine Squamous Cell 0-2 /LPF (Few)
[2024-12-06 22:41] LABS: Urine White Cell 0-2 /HPF (0-5)
[2024-12-06 22:59] LABS: ALT (SGPT) 18 U/L (0-35); AST (SGOT) 21 U/L (14-36); Albumin 3.4 g/dl (3.5-5.0); Alkaline Phosphatase 108 U/L (38-126); Blood Urea Nitrogen 20 mg/dl (7-17); Calcium 9.1 mg/dl (8.4-10.2); Carbon Dioxide 23 mmol/L (22-30); Chloride 111 mmol/L (98-107); Estimated Creatinine Clearance 56 ml/min; Glucose 110 mg/dl (70-99); Potassium 4.2 mmol/L (3.5-5.1); Sodium 141 mmol/L (135-145); Total Protein 6.3 g/dl (6.3-8.2); eGFR > 60.00
[2024-12-06 23:00] VITALS: BP 161/69
[2024-12-06 23:35] VITALS: BMI 17.5
[2024-12-06] MEDS: NSS 500 IV (23:48)
[2024-12-06] MEDS: OFIRMEV 100 IV (23:49)
[2024-12-07] VITALS (8 sets, daily range): BP systolic 119–174; BP diastolic 54–96; BMI 17.1
[2024-12-07 00:24] LABS: COVID-19 Antigen Negative (Negative)
[2024-12-07] MEDS: ZOSYN 50 IV ×4 (01:20→19:42)
[2024-12-07] MEDS: FLUSH (NSS) 1 FLUSH IV (01:27)
--- NOTE | 2024-12-07 02:36 | HPS.HSE ---
Family Physician
-
Family Physician: NOT KNOW UNKNOWN - PT DOES
Chief Complaint
-
Lethargy
History of Present Illness
Patient is an 79y F with PMH significant for senile dementia with behavioral disturbance who presents to ED for evaluation of lethargy, anorexia and malaise. History obtained from at the bedside. Patient hospitalized here in September for
hypoglycemia, COVID-19 infection, etc. She was discharged to Memory Care unit where she has remained since that time. states that she has been very lethargic for the past week or so. Yesterday she woke for breakfast, but then slept
through lunch. She has been eating less and less and sleeping more and more. They presented to the ED here on 12/01 for evaluation of these symptoms.
Work-up at that time was essentially unremarkable. No evidence of acute infection or other acute process.
Today they returned to the ED for evaluation with persistent lethargy and anorexia.
notes no cough, N/V/D or other focal / specific symptoms.
Medical History
Past Medical History
Past Medical History: Reports Other
Additional Past Medical History:
Dyslipidemia
Senile Dementia with Behavioral Disturbance
Ambulatory dysfunction
Generalized anxiety disorder
Osteoporosis
Orthostatic hypotension Dx 2021
Past Surgical History: Reports None and Other
Social History
Tobacco: Non-smoker
Alcohol: None
Drug: None
Personal:
Living: With Family ( Yared)
Employment: Retired
Family History
Family History: Other (Mother age 97 unsure per Yared at bedside)
Allergies / Home Medications
Allergies reflects when Allergies were last updated in [facility].
Home Medications with original date entered in [facility]
Allergy/Medication List:
Allergies
Allergy/AdvReac Type Severity Reaction Status Date / Time
No Known Allergies Allergy Verified 12/06/24 21:54
Home Medications
atorvastatin 10 mg tablet 10 mg PO QPM High cholesterol 12/14/16
calcium 600 mg (as carbonate)-vitamin D3 10 mcg (400 unit) tablet (Calcium 600 + D(3)) 1 ea PO DAILY Supplement 12/14/16
coenzyme Q10 200 mg capsule (Co Q-10) 200 mg PO QPM Supplement 12/14/16
ascorbic acid (vitamin C) 250 mg tablet (Vitamin C) 250 mg PO DAILY Supplement 09/12/24
memantine 10 mg tablet 10 mg PO BID Mental Health/Anxiety 09/12/24
rivastigmine 4.6 mg/24 hour transdermal patch 1 patch transdermal DAILY Mental Health/Anxiety 09/12/24
sertraline 50 mg tablet 50 mg PO DAILY Depression 09/12/24
melatonin 5 mg tablet 5 mg PO QPM #10 tabs 09/18/24
acetaminophen 325 mg tablet 650 mg PO Q6H PRN pain/fever 12/01/24
bisacodyl 10 mg rectal suppository 10 mg WI DAILY PRN constipation 12/01/24
magnesium hydroxide 400 mg/5 mL oral suspension (Milk of Magnesia) 30 ml PO DAILY PRN constipation 12/01/24
risperidone 0.5 mg tablet 0.5 mg PO BID 12/01/24
Review of Systems
-
History Source: Family
A 12 point ROS was completed and negative except as noted: Yes
Constitutional: Reports Fatigue; Denies Fever
EENT: Denies Sore Throat
Respiratory: Denies Cough
Cardiac: Denies Chest Pain
Abdomen/GI: Reports Anorexia; Denies Nausea, Vomiting or Diarrhea
: Denies Flank Pain
Musculoskeletal: Denies Edema
Physical Exam
Vital Signs
Vital Signs
Temp Pulse Resp BP Pulse Ox
100.5 F H 59 16 161/69 97
12/06/24 21:55 12/06/24 23:30 12/06/24 23:30 12/06/24 23:00 12/06/24 23:30
Physical Exam
General: Other (79y F sleeping comfortably. Minimally responsive to tactile / noxious stimuli. Does not answer questions or follow commands.)
HEENT: Other (Dry MM. Neck supple.)
Respiratory: Other (Few coarse breath sounds over the R chest. L clear.)
Cardiac: S1/S2 and Regular Rhythm; No Murmur
GI: Soft, Non Tender, Non Distended and Normal Bowel Sounds
Musculoskeletal: No Clubbing, No Cyanosis and No Edema
Neuro: Other (Lethargic.)
Laboratory Results
-
12/06/24 21:56
12/06/24 22:21
Laboratory Results
Lactic Acid 0.8 mmol/L (0.7-2.0) 12/06/24 21:56
Total Bilirubin 0.9 mg/dl (0.2-1.3) 12/06/24 22:21
AST 21 U/L (14-36) 12/06/24 22:21
ALT 18 U/L (0-35) 12/06/24 22:21
Alkaline Phosphatase 108 U/L (38-126) 12/06/24 22:21
Impression/Plan
-
A/P: Patient is an 79y F with PMH significant for advanced dementia with behavioral disturbance who presents to ED for evaluation of recently progressive lethargy and anorexia.
R Pneumonia
- Admit for further evaluation and treatment.
- Patient with fever (100.5) and CXR showing opacities in the upper and lower lung jacobs on the R.
- No noted cough and no significant hypoxemia, etc.
- Continue Zosyn for now.
- Follow fever curve and monitor for any clinical response to treatment.
- Aspiration precautions. Speech eval.
Anorexia / Lethargy
- Potentially secondary to infection as noted above.
- Follow for any clinical improvement with treatment of pneumonia.
- Also potentially (perhaps more likely) secondary to advancing dementia.
- aware of this possibility.
- Hospice was discussed during prior admission and may be re-visited during this stay.
Senile Dementia with Behavioral Disturbance
- Currently lethargic.
- Hold sedating medications for now.
- Change risperidone to PRN for any developing agitation.
DVT Prophylaxis: SCDs
Code Status: DNR
[2024-12-07] MEDS: NSS 1000 IV ×2 (04:47→15:51)
[2024-12-07 06:47] LABS: Hematocrit 34.1 % (37.0-47.0); Hemoglobin 11.3 g/dL (12.0-16.0); Mean Corp Hgb Conc. 33.1 g/dL (33.0-37.0); Mean Corpuscular Volume 89.7 fL (81.0-99.0); Platelet Count 196 10^3/uL (130-400); Red Cell Dist. Width 12.7 % (11.5-14.5)
[2024-12-07 07:26] LABS: Blood Urea Nitrogen 20 mg/dl (7-17); Calcium 9.4 mg/dl (8.4-10.2); Carbon Dioxide 26 mmol/L (22-30); Chloride 111 mmol/L (98-107); Estimated Creatinine Clearance 55 ml/min; Glucose 94 mg/dl (70-99); Potassium 4.2 mmol/L (3.5-5.1); Sodium 143 mmol/L (135-145); eGFR > 60.00
--- NOTE | 2024-12-07 10:58 | CM ---
Met with patient and her at bedside; initial assessment completed
IMM benefit explained; signed @ 1055
Pharmacy verified: [facility] @ [address], [address], [place]
Family Physician verified: Sundar Mantilla MD; [id number], [place] [id number];
Patient agitated and confused; resides @ [facility]; has been there 2 months
PLOF: reported that at times patient able to feed self; needed assistance with ambulation (held on to railing; no device) and personal care
[facility] was recently started at the facility
SNF stay @ [facility] this year; if SNF is needed, reported he will not have her go there
Will need ambulance transport
Discharge plan to be determined pending hospital course; case management will monitor and support discharge plan as needed
--- NOTE | 2024-12-07 11:38 | W.PN.UPDATE ---
Update Note
Progress Note Update
Nonbillable note
1. Possible aspiration pneumonia -patient had some reported mild fever which x-ray showing some opacity upper and lower lung jacobs on the right side. Maintained on empiric Zosyn. Speech therapy evaluation ordered. Patient can be started on
dysphagia versus regular diet based on speech therapy clearance
2. Acute toxic metabolic encephalopathy, dementia -patient is in memory care unit. Patient apparently was less responsive in the night, awake in the morning. On Risperdal on review of halfway medication list, may needed to be held if patient
felt to be too sedated. Continue supportive care.
3. HLD - maintain on statin
4. Failure to thrive - poor oral intake per previous hospitalization documentation although per patient has been able to keep up with oral intake. No lab abnormalities suggestive of volume depletion.
[2024-12-07] MEDS: LIPITOR PO (15:51)
--- NOTE | 2024-12-07 17:07 | PTOTSP ---
ST Acute Care Evaluation
Pt currently presents with fairly functional oropharyngeal and esophageal swallowing parameters. No major or persistent overt s/s of penetration or aspiration noted at bedside with the consistencies trialed at bedside. Cannot rule out silent
aspiration at bedside. Pt is at an increased risk for aspiration given her current acute encephalopathy, advanced dementia, reduced insight to deficits, reliance on others for feeding, poor positioning, and perseverative talking with bolus in oral
cavity.
Recommendations:
- Initiate PO diet of regular solids, thin liquids, meds whole in puree.
- Aspiration precautions: HOB upright for all PO intake; pt must be fully awake and alert for all PO intake; fully assistance with meals; small bites/sips; alternate bites/sips.
- MOBILE SALES CONSULTANT to f/u re: diet tolerance, use of compensatory strategies, and to determine if pt would benefit from an instrumental swallow study.
[2024-12-08] MEDS: ZOSYN 50 IV ×4 (01:34→20:12)
[2024-12-08 01:37] VITALS: BP 152/65
[2024-12-08] MEDS: NSS 1000 IV ×2 (05:51→17:28)
[2024-12-08 07:44] VITALS: BP 161/71
[2024-12-08] MEDS: EXELON PATCH 4.6 MG TRANSDERM (10:29)
[2024-12-08] MEDS: NAMENDA 10 MG PO ×2 (10:31→20:12)
[2024-12-08] MEDS: ZOLOFT 50 MG PO (10:31)
[2024-12-08 10:59] LABS: Hematocrit 37.7 % (37.0-47.0); Hemoglobin 13.1 g/dL (12.0-16.0); Mean Corp Hgb Conc. 34.7 g/dL (33.0-37.0); Mean Corpuscular Volume 84.7 fL (81.0-99.0); Nucleated Red Blood Cells % 0 %; Platelet Count 206 10^3/uL (130-400); Red Cell Dist. Width 12.3 % (11.5-14.5)
[2024-12-08 11:30] LABS: Blood Urea Nitrogen 11 mg/dl (7-17); Calcium 9.1 mg/dl (8.4-10.2); Carbon Dioxide 23 mmol/L (22-30); Chloride 110 mmol/L (98-107); Estimated Creatinine Clearance 55 ml/min; Glucose 131 mg/dl (70-99); Potassium 3.5 mmol/L (3.5-5.1); Sodium 141 mmol/L (135-145); eGFR > 60.00
[2024-12-08 12:07] VITALS: BMI 17.1
--- NOTE | 2024-12-08 13:13 | W.PN.HOSP.TC ---
Today's Communication/Plan
-
Monitor vital signs see plan
Continue with antibiotics
Restart rivastigmine, memantine, sertraline
Risperidone as needed
Monitor mental status
Discussed with spouse at bedside
Assessment / Plan
Assessment / Plan
General: Agitated, confused
HEENT: Anicteric, pink conjunctiva
Respiratory: Clear to auscultation, no wheezes
Cardiac: S1/S2 and Regular Rhythm; No Murmur
GI: Soft, Non Tender, Non Distended and Normal Bowel Sounds
Musculoskeletal:No Edema
Neuro: Agitated,. Dementia
R Pneumonia
Suspect secondary to aspiration
- Patient with fever (100.5) and CXR showing opacities in the upper and lower lung jacobs on the R.
- No noted cough and no significant hypoxemia, etc.
- Continue Zosyn for now.
- Follow fever curve and monitor for any clinical response to treatment.
- Speech following
Anorexia / Lethargy on admission suspect likely secondary to toxic metabolic encephalopathy secondary to pneumonia, does have underlying advanced dementia
Due to lethargy, some of her medications was held. Patient is now agitated
Restart memantine, rivastigmine, sertraline. Keep risperidone as needed
- Follow for any clinical improvement with treatment of pneumonia.
- aware of this possibility.
- Hospice was discussed during prior admission and may be re-visited during this stay.
Senile Dementia with Behavioral Disturbance
Now agitated, confused
Restart memantine, rivastigmine, sertraline. Keep risperidone as needed
- Change risperidone to PRN for any developing agitation.
DVT Prophylaxis: SCDs
Code Status: DNR
I spent a total of 52 minutes with the patient or on the floor. More than 50% of this time involved counseling and coordination of care.
Anticipated Discharge: 24 - 48 hours
Subjective/Interval History
-
Date of Service: December 08, 2024
Agitated earlier this morning
Objective Data
-
Labs:
Laboratory Results
12/08/24
10:53
WBC 11.0 H
Hgb 13.1
Hct 37.7
Plt Count 206
Sodium 141
Potassium 3.5
Chloride 110 H
Carbon Dioxide 23
BUN 11
Creatinine 0.6
Glucose 131 H
Calcium 9.1
Vital Signs:
Vital Signs
Temp Pulse Resp BP Pulse Ox
98.1 F 66 17 161/71 98
12/08/24 07:44 12/08/24 07:44 12/08/24 07:44 12/08/24 07:44 12/08/24 07:44
I&O
12/07/24 12/08/24 12/09/24
06:59 06:59 06:59
Intake Total 1060 / 1060
Balance 1060 / 1060
[2024-12-08 15:35] VITALS: BP 158/77
--- NOTE | 2024-12-08 16:00 | CM ---
Call from [facility] memory care- update provided
PT/OT evals requested- awaiting outcome
Discharge Disposition- anticipate return to [facility], watch for VN or higher needs
[2024-12-08] MEDS: LIPITOR 10 MG PO (17:27)
[2024-12-08 23:13] VITALS: BP 129/91
[2024-12-09] MEDS: ZOSYN 50 IV ×4 (02:02→21:13)
[2024-12-09] MEDS: NSS 1000 IV (05:25)
[2024-12-09 07:14] LABS: Hematocrit 31.6 % (37.0-47.0); Hemoglobin 10.9 g/dL (12.0-16.0); Mean Corp Hgb Conc. 34.5 g/dL (33.0-37.0); Mean Corpuscular Volume 85.6 fL (81.0-99.0); Nucleated Red Blood Cells % 0 %; Platelet Count 216 10^3/uL (130-400); Red Cell Dist. Width 12.3 % (11.5-14.5)
[2024-12-09 07:17] VITALS: BP 175/75
[2024-12-09 07:40] LABS: Blood Urea Nitrogen 8 mg/dl (7-17); Calcium 8.2 mg/dl (8.4-10.2); Carbon Dioxide 23 mmol/L (22-30); Chloride 110 mmol/L (98-107); Estimated Creatinine Clearance 55 ml/min; Glucose 89 mg/dl (70-99); Potassium 3.3 mmol/L (3.5-5.1); Sodium 141 mmol/L (135-145); eGFR > 60.00
[2024-12-09] MEDS: EXELON PATCH 4.6 MG TRANSDERM (08:41)
[2024-12-09] MEDS: ZOLOFT 50 MG PO (08:42)
[2024-12-09] MEDS: NAMENDA 10 MG PO ×2 (08:42→21:13)
[2024-12-09] MEDS: APRESOLINE 5 MG IV (08:48)
[2024-12-09 09:20] VITALS: BP 166/70
--- NOTE | 2024-12-09 11:57 | W.PN.HOSP.TC ---
Today's Communication/Plan
-
Monitor vital signs see plan
manager behavior for disposition
cw abx
monitor mental status
Discussed with spouse
Assessment / Plan
Assessment / Plan
General: Agitated, confused
HEENT: Anicteric, pink conjunctiva
Respiratory: Clear to auscultation, no wheezes
Cardiac: S1/S2 and Regular Rhythm; No Murmur
GI: Soft, Non Tender, Non Distended and Normal Bowel Sounds
Musculoskeletal:No Edema
Neuro: calm,. Dementia
R Pneumonia
Suspect secondary to aspiration
- Patient with fever (100.5) and CXR showing opacities in the upper and lower lung jacobs on the R.
- No noted cough and no significant hypoxemia, etc.
- Continue Zosyn for now.
- Follow fever curve and monitor for any clinical response to treatment.
- Speech following
Anorexia / Lethargy on admission suspect likely secondary to toxic metabolic encephalopathy secondary to pneumonia, does have underlying advanced dementia
Due to lethargy, some of her medications was held. Patient is now agitated
Restarted memantine, rivastigmine, sertraline. Keep risperidone as needed
- Follow for any clinical improvement with treatment of pneumonia.
- aware of this possibility.
- Hospice was discussed during prior admission and may be re-visited during this stay.
Senile Dementia with Behavioral Disturbance
Now agitated, confused
Restart memantine, rivastigmine, sertraline. Keep risperidone as needed
- Change risperidone to PRN for any developing agitation.
DVT Prophylaxis: SCDs
Code Status: DNR
PT/OT rec SNF; aware and do not think its a great idea given patient is currently at memory care unit
Anticipated Discharge: Within 24 hours
Subjective/Interval History
-
Date of Service: December 09, 2024
Much more awake today
Objective Data
-
Labs:
Laboratory Results
12/09/24
06:07
WBC 7.7
Hgb 10.9 L
Hct 31.6 L
Plt Count 216
Sodium 141
Potassium 3.3 L
Chloride 110 H
Carbon Dioxide 23
BUN 8
Creatinine 0.6
Glucose 89
Calcium 8.2 L
Vital Signs:
Vital Signs
Temp Pulse Resp BP Pulse Ox
98.3 F 84 18 166/70 97
12/09/24 07:17 12/09/24 07:17 12/09/24 07:17 12/09/24 09:20 12/09/24 07:17
I&O
12/08/24 12/09/24 12/10/24
06:59 06:59 06:59
Intake Total 1060 / 1060 220 / 220
Balance 1060 / 1060 220 / 220
[2024-12-09] MEDS: KCL ELIXIR 40 MEQ PO (12:46)
--- NOTE | 2024-12-09 12:50 | CM ---
Chart reviewed. Patient is from [facility].
Therapy rec SNF at d/c. Patient w/ dementia, wasn't able to meaningfully participate in PT at the time of evaluation
Spoke w/ spouse bedside about SNF, spouse is reluctant due to experience at previous SNF and unsure about patient going to another facility
CM spoke w/ Alyssa/[facility], discussed SNF eval and if patient has the ability to engage in skilled rehab vs her returning. Alyssa stated she will have someone come assess patient later today in the hospital and then will decide on a
discharge plan.
Plan: SNF vs return to [facility]
[2024-12-09 15:30] VITALS: BP 153/64
[2024-12-09] MEDS: LIPITOR 10 MG PO (17:07)
[2024-12-09] MEDS: RISPERDAL 0.5 MG PO (18:24)
[2024-12-09 23:52] VITALS: BP 158/76
[2024-12-10] MEDS: ZOSYN 50 IV ×4 (03:14→19:51)
[2024-12-10 07:16] VITALS: BP 164/75
[2024-12-10] MEDS: NAMENDA 10 MG PO ×2 (09:12→19:51)
[2024-12-10] MEDS: EXELON PATCH 4.6 MG TRANSDERM (09:12)
[2024-12-10] MEDS: ZOLOFT 50 MG PO (09:12)
[2024-12-10 09:55] LABS: Hematocrit 39.3 % (37.0-47.0); Hemoglobin 13.6 g/dL (12.0-16.0); Mean Corp Hgb Conc. 34.6 g/dL (33.0-37.0); Mean Corpuscular Volume 86.0 fL (81.0-99.0); Nucleated Red Blood Cells % 0 %; Platelet Count 285 10^3/uL (130-400); Red Cell Dist. Width 12.5 % (11.5-14.5)
[2024-12-10 10:15] LABS: Blood Urea Nitrogen 8 mg/dl (7-17); Calcium 9.6 mg/dl (8.4-10.2); Carbon Dioxide 25 mmol/L (22-30); Chloride 108 mmol/L (98-107); Estimated Creatinine Clearance 55 ml/min; Glucose 97 mg/dl (70-99); Potassium 3.9 mmol/L (3.5-5.1); Sodium 143 mmol/L (135-145); eGFR > 60.00
[2024-12-10 10:43] VITALS: BP 144/70; O2SAT 98
--- NOTE | 2024-12-10 11:20 | CM ---
Addendum entered by France Griffin 12/10/24 15:08:
Followed up w/ hospice referral. Spoke w/ Brittany/[facility] hospice on acceptance and when hospice can sign on. Per Brittany, she is still working out details of the equipment delivery and the time of delivery. Requesting for CM to follow up w/ her in the
morning. Patient can potentially d/c tomorrow if delivery occurs.
CM to call [facility] [phone] and speak w/ Brittany on delivery and confirmation of start of care
Original Note:
Spoke w/ Alyssa/[facility] [phone], spouse agreeable to hospice for patient upon her return.
[facility] hospice is the preferred provider, phone [phone], fax [phone]. Referral sent in [facility]
TT hospitalist requesting hospice order, will send to [facility] when made available
CM to follow up w/ referral and start of hospice care to determine d/c
Will need ambulance transport
Will need OOH DNR signed
Plan: Return to [facility] w/ [facility] hospice
--- NOTE | 2024-12-10 12:18 | W.PN.HOSP.TC ---
Today's Communication/Plan
-
Monitor vital signs
See plan
Continue to monitor
Continue with risperidone, rivastigmine, memantine, sertraline
Hospice eval
Assessment / Plan
Assessment / Plan
General: Agitated, confused
HEENT: Anicteric, pink conjunctiva
Respiratory: Clear to auscultation, no wheezes
Cardiac: S1/S2 and Regular Rhythm; No Murmur
GI: Soft, Non Tender, Non Distended and Normal Bowel Sounds
Musculoskeletal:No Edema
Neuro: calm,. Dementia
R Pneumonia
Suspect secondary to aspiration
- Patient with fever (100.5) and CXR showing opacities in the upper and lower lung jacobs on the R.
- No noted cough and no significant hypoxemia, etc.
- Continue Zosyn for now.
- Follow fever curve and monitor for any clinical response to treatment.
- Speech following
Anorexia / Lethargy on admission suspect likely secondary to toxic metabolic encephalopathy secondary to pneumonia, does have underlying advanced dementia
Due to lethargy, some of her medications was held. Patient is now agitated
Restarted memantine, rivastigmine, sertraline. Keep risperidone as needed
- Follow for any clinical improvement with treatment of pneumonia.
- aware of this possibility.
- now agreeable for hospice. Discussed with rn case manager hospice. Hospice consulted.
Senile Dementia with Behavioral Disturbance
Now agitated, confused
Restart memantine, rivastigmine, sertraline. Keep risperidone as needed
- Change risperidone to PRN for any developing agitation.
DVT Prophylaxis: SCDs
Code Status: DNR
Anticipated Discharge: Within 24 hours
Subjective/Interval History
-
Date of Service: December 10, 2024
Not agitated
Objective Data
-
Labs:
Laboratory Results
12/10/24
09:43
WBC 7.6
Hgb 13.6 D
Hct 39.3
Plt Count 285 D
Sodium 143
Potassium 3.9
Chloride 108 H
Carbon Dioxide 25
BUN 8
Creatinine 0.6
Glucose 97
Calcium 9.6
Vital Signs:
Vital Signs
Temp Pulse Resp BP Pulse Ox
97.7 F 84 16 164/75 95
12/10/24 07:16 12/10/24 07:16 12/10/24 07:16 12/10/24 07:16 12/10/24 07:16
I&O
12/09/24 12/10/24 12/11/24
06:59 06:59 06:59
Intake Total 220 / 220 340 / 340 50 / 50
Balance 220 / 220 340 / 340 50 / 50
[2024-12-10 15:34] VITALS: BP 103/73
[2024-12-10] MEDS: LIPITOR 10 MG PO (17:31)
[2024-12-10 20:55] VITALS: BP 137/58
--- NOTE | 2024-12-10 21:51 | W.PN.UPDATE ---
Update Note
Progress Note Update
On the floor to assess pt after she was found sitting cross legged on the ground- unwitnessed fall? Pt AAOx1(self)- confused conversation stating she is supposed to be going to a wedding- RN states this is her baseline. Pt denies any pain, WINTRE or
lightheadedness. She denies hitting her head. She is able to move all extremities when asked- Skin assessment only revealed a small abrasion on the posterior L forearm less than an inch in length- no further bruising noted. Nothing noted on her
scalp, face, or neck- at this time I do not feel any imaging is nessecary. VSS. Pt now resting in bed.
[2024-12-10 23:17] VITALS: BP 123/57
[2024-12-11] MEDS: ZOSYN 50 IV ×2 (02:28→08:24)
--- NOTE | 2024-12-11 07:27 | FALL ---
Description of Fall: Patient found sitting on floor by this RN. Patient denies hitting her head. Bed alarm was not noted to be plugged into the wall at the time of the fall.
Injuries Noted: A skin tear was noted on the patient`s forearm. Patient states that she did not hit her head.
Action Taken: Patient aswsisted back to bed. Bed alarm plugged in.
Name of Provider Notified: Marylin ALCALA notified ornamental ironworker helper DESK OFFICER.
[2024-12-11 07:39] VITALS: BP 155/69
[2024-12-11 07:53] LABS: Hematocrit 32.5 % (37.0-47.0); Hemoglobin 11.1 g/dL (12.0-16.0); Mean Corp Hgb Conc. 34.2 g/dL (33.0-37.0); Mean Corpuscular Volume 86.0 fL (81.0-99.0); Nucleated Red Blood Cells % 0 %; Platelet Count 250 10^3/uL (130-400); Red Cell Dist. Width 12.5 % (11.5-14.5)
[2024-12-11] MEDS: EXELON PATCH 4.6 MG TRANSDERM (08:24)
[2024-12-11] MEDS: NAMENDA 10 MG PO (08:24)
[2024-12-11] MEDS: ZOLOFT 50 MG PO (08:24)
[2024-12-11 08:29] LABS: Blood Urea Nitrogen 18 mg/dl (7-17); Calcium 9.0 mg/dl (8.4-10.2); Carbon Dioxide 26 mmol/L (22-30); Chloride 110 mmol/L (98-107); Estimated Creatinine Clearance 55 ml/min; Glucose 91 mg/dl (70-99); Potassium 3.6 mmol/L (3.5-5.1); Sodium 140 mmol/L (135-145); eGFR > 60.00
--- NOTE | 2024-12-11 11:01 | CM ---
Addendum entered by Renee Pierson RN 12/11/24 12:38:
MD entered order for discharge.DNROOH form signed. Ambulance set up for 2 pm today . Family , [facility] Alyssa and Pamela Soto aware of transport time.
Signed IMM IMM on chart.
Original Note:
TT MD if patient appropriate for discharge today.
[facility] Brittany phone [phone] or [phone], fax [phone] called checking if pt ready for dc to [facility] for hospice.
Spoke with [place]/[facility] [phone] fax [phone] they can accept today.
Yared spouse agreeable to hospice .
Medical nec form completed for ambulance
DNROOH form on chart for MD signature.
PLAN Return to [facility] report [phone] fax [phone]
[facility] fax [phone]
--- NOTE | 2024-12-11 11:30 | W.PN.HOSP.TC ---
Addendum entered and electronically signed by Tonny Hou MD 12/11/24 11:36:
Correction: time of discharge 38 minutes
Original Note:
Today's Communication/Plan
-
Monitor vital signs see plan
Switch antibiotics to oral
Discharge today on hospice
Time of discharge 30 minutes
Assessment / Plan
Assessment / Plan
General: Agitated, confused
HEENT: Anicteric, pink conjunctiva
Respiratory: Clear to auscultation, no wheezes
Cardiac: S1/S2 and Regular Rhythm
GI: Soft, Non Tender, Non Distended and Normal Bowel Sounds
Musculoskeletal:No Edema
Neuro: calm,. Dementia
R Pneumonia
Suspect secondary to aspiration
- Patient with fever (100.5) and CXR showing opacities in the upper and lower lung jacobs on the R.
- No noted cough and no significant hypoxemia, etc.
- Switch to p.o. antibiotics to complete course
- Follow fever curve and monitor for any clinical response to treatment.
- Speech following
Anorexia / Lethargy on admission suspect likely secondary to toxic metabolic encephalopathy secondary to pneumonia, does have underlying advanced dementia
Due to lethargy, some of her medications was held. Patient is now agitated
Restarted memantine, rivastigmine, sertraline. Keep risperidone as needed
- Follow for any clinical improvement with treatment of pneumonia.
- aware of this possibility.
- now agreeable for hospice. Discussed with nurse case manager. Hospice consulted. Plan for dc on hospice today
Senile Dementia with Behavioral Disturbance
Now agitated, confused
Restart memantine, rivastigmine, sertraline. Keep risperidone as needed
- Change risperidone to PRN for any developing agitation.
DVT Prophylaxis: SCDs
Code Status: DNR
Anticipated Discharge: Today
Subjective/Interval History
-
Date of Service: December 11, 2024
no pain
Objective Data
-
Labs:
Laboratory Results
12/11/24
06:56
WBC 6.8
Hgb 11.1 L
Hct 32.5 L
Plt Count 250
Sodium 140
Potassium 3.6
Chloride 110 H
Carbon Dioxide 26
BUN 18 H
Creatinine 0.6
Glucose 91
Calcium 9.0
Vital Signs:
Vital Signs
Temp Pulse Resp BP Pulse Ox
98.7 F 66 16 155/69 99
12/11/24 07:39 12/11/24 07:39 12/11/24 07:39 12/11/24 07:39 12/11/24 08:45
I&O
12/10/24 12/11/24 12/12/24
06:59 06:59 06:59
Intake Total 340 / 340 1227 / 1227
Balance 340 / 340 1227 / 1227
--- NOTE | 2024-12-11 11:36 | W.DCSUMMARY ---
Discharge Summary
Discharge Data
Date of Admission: 12/07/24
Date of Discharge: 12/11/24
-
Pending Results: No
Hospital Course
79-year-old female with past medical history of advanced dementia, anorexia came to the hospital with lethargy secondary to toxic metabolic encephalopathy from pneumonia. It appears the patient likely had aspiration pneumonia. She was initially
treated with IV antibiotic which were later transitioned to oral. Given her worsening clinical status and dementia, family decided on hospice. Patient was then later discharged back to [facility] on hospice.
Discharge Plan
-
Patient Disposition: Other
Discharge Diagnosis/Procedures: Pneumonia suspect aspiration
Anorexia, lethargy
Failure to thrive
Advanced dementia with behavioral disturbances
Diet: As tolerated
Activity: As tolerated
Driving Restrictions: No driving
Bathing Restrictions: None
Other Services: Hospice
Activity Restrictions/Additional Instructions:
Last day of antibiotic 12/12/2024
Referrals:
Sundar Mantilla MD [Family Provider, Family Practice] - in less than 1 week
Prescriptions:
New
amoxicillin-pot clavulanate 875-125 mg tablet
1 tab PO BID Qty: 4 0RF
Continued
atorvastatin 10 MG tablet
10 mg PO QPM
coenzyme Q10 [Co Q-10] 200 MG capsule
200 mg PO QPM
calcium carbonate-vitamin D3 [Calcium 600 + D(3)] 1 EACH tablet
1 ea PO DAILY
ascorbic acid (vitamin C) [Vitamin C] 250 mg Tablet
250 mg PO DAILY
sertraline 50 mg Tablet
50 mg PO DAILY
memantine 10 mg Tablet
10 mg PO BID
rivastigmine 4.6 mg/24 hour Patch 24 Hour
1 patch TRANSDERMAL DAILY
melatonin 5 mg Tablet
5 mg PO QPM Qty: 10 0RF
acetaminophen 325 mg Tablet
650 mg PO Q6H PRN (Reason: pain/fever)
magnesium hydroxide [Milk of Magnesia] 400 mg/5 mL Suspension
30 ml PO DAILY PRN (Reason: constipation)
bisacodyl 10 mg Suppository
10 mg UT DAILY PRN (Reason: constipation)
risperidone 0.5 mg Tablet
0.5 mg PO BID
Discharge Orders:
Discharge Patient (As Directed); Ordered 12/11/24
Ordered By: Tonny Hou
Discharge Date and Time
Discharge Date/Time: 12/11/24 14:20
Print Language: SPANISH
[2024-12-11 13:50] VITALS: BP 140/59
== END 2024-12-11 14:20 | disposition home or self-care (01) | DRG 177 ==
LOC: 4 WEST ACU 02:45
PROVIDERS: Emergency Medicine; Nurse Practitioner; ADMITTING PHYSICIAN Hospitalist; ATTENDING PHYSICIAN Internal Medicine; EMERGENCY PHYSICIAN Emergency Medicine; FAMILY PHYSICIAN Family Medicine
DX: J69.0 Pneumonitis due to inhalation of food and vomit (principal); G92.8 Other toxic encephalopathy; F03.918 Unspecified dementia, unspecified severity, with other behavioral disturbance; F03.94 Unspecified dementia, unspecified severity, with anxiety; Z68.1 Body mass index [BMI] 19.9 or less, adult; Z11.52 Encounter for screening for COVID-19; Z66 Do not resuscitate; R62.7 Adult failure to thrive; R63.0 Anorexia
CPT/HCPCS: 51701; 70450; 71046; 80048; 80053; 81003; 81015; 83605; 85025; 85027; 87040; 87070; 87086; 87502; 87811; 92526; 92610; 93005; 94760; 96361; 96365; 96375; 97163; 97167; 97530; 97535; 99285